=== PATIENT | male | born 1950 | race Caucasian/White ===

== ENCOUNTER → 2016-09-15 | Outpatient (CLI) | payer BC ==
[~2016-09-15] MED LIST: ALLO300T2 PO; ASPI81TA28 PO; CPR500 PO; DICL1GEL28 TOP; MTR500 PO; OMEG10007 PO; PRLSR20 PO; PRN10125 PO; SILD100T PO; SIMV40TA2 PO; SYN75 PO; TRAM-10 PO
--- NOTE | 2016-09-15 15:18 | DIAGNOSTIC IMAGING REPORT ---
LEFT KNEE 4 OR MORE CLINICAL HISTORY: LEFT KNEE PAIN pain COMPARISON: 01/24/2016 DISCUSSION: Moderate degenerative change medial and patellofemoral joint compartments. Partial lateral subluxation of the patella in relation to the patellar groove. Moderate reactive osteophytic change throughout. No evidence for acute bony pathology. Study is unchanged in the prior exam. There is no evidence for soft tissue swelling. IMPRESSION: Degenerative change of all major joint compartments all this is felt to be most prominent at the patellofemoral joint area. No change from the prior study. Electronically signed by: Ivan Fields M.D. 09/15/2016 3:17 PM Dictated Date/Time: 09/15/2016 3:15 PM
== END | disposition home or self-care (01) ==
LOC: C.RDSM 16:38
PROVIDERS: ATTEND Physician Assistant
DX: M25.562 Pain in left knee (principal)

== ENCOUNTER → 2016-10-09 | Outpatient (CLI) | payer BC ==
--- NOTE | 2016-10-09 12:23 | DIAGNOSTIC IMAGING REPORT ---
RENAL ULTRASOUND HISTORY: N18.3 CKD (chronic kidney disease), stage III COMPARISON: Abdomen and pelvis CT 08/17/2013. FINDINGS: Right kidney: 11.2 cm. No hydronephrosis. Normal corticomedullary differentiation. Mild/moderate cortical scarring/lobulation. Left kidney: 9.8 cm. No hydronephrosis. Normal corticomedullary differentiation. Mild/moderate cortical scarring/lobulation. Bladder: No bladder wall thickening. The bilateral ureteral jets were identified. The prostate gland is enlarged. Hepatic steatosis. IMPRESSION: 1. Mild/moderate bilateral cortical renal scarring/lobulation. 2. No hydronephrosis. 3. Enlarged prostate. 4. Hepatic steatosis. Electronically signed by: Beck Love M.D. 10/09/2016 12:21 PM Dictated Date/Time: 10/09/2016 12:19 PM
== END | disposition home or self-care (01) ==
LOC: C.ULTR 11:10
PROVIDERS: ATTEND Internal Medicine Nephrology
DX: I12.9 Hypertensive chronic kidney disease with stage 1 through stage 4 chronic kidney disease, or unspecified chronic kidney disease (principal); N18.3 Chronic kidney disease, stage 3 (moderate); M19.90 Unspecified osteoarthritis, unspecified site; N28.1 Cyst of kidney, acquired

== ENCOUNTER → 2017-08-20 | Outpatient (CLI) | payer BC, OTHER ==
--- NOTE | 2017-08-20 10:03 | DIAGNOSTIC IMAGING REPORT ---
AP STANDING VIEW OF BOTH KNEES; 3 VIEWS RIGHT KNEE CLINICAL HISTORY: Chronic right knee pain. FINDINGS: An AP standing view of both knees with crosstable lateral, tunnel, and sunrise views of the right knee are correlated with study dated 09/15/2016. The skeletal structures are osteopenic. No fracture is seen. There is advanced degenerative narrowing at the patellofemoral articulation with bony sclerosis and overgrowth. Moderate narrowing is seen in the medial compartment. The lateral compartment appears maintained. There are small marginal osteophytes as well as large patellar enthesophytes. A calcified fabella is incidentally noted. A calcified joint body is suspected projecting over the medial compartment on the AP view. No osteochondral defect is suggested on the tunnel image. There is a moderate to large joint effusion. The overlying soft tissues are normal in appearance. Survey images of the left knee on the frontal view show moderate to advanced narrowing in the medial compartment as well as marginal osteophytes. IMPRESSION: 1. Joint effusion with no acute osseous abnormality identified in the right knee. 2. Osteopenia and degenerative change as above, greatest at the patellofemoral articulation. 3. Question a calcified joint body projecting over the medial compartment. Electronically signed by: Chuy Parham M.D. 08/20/2017 10:01 AM Dictated Date/Time: 08/20/2017 9:55 AM
== END | disposition home or self-care (01) ==
LOC: C.RDSM 14:31
PROVIDERS: ATTEND Physical Medicine & Rehabilitation Sports Medicine
DX: M25.461 Effusion, right knee (principal); R52 Pain, unspecified; M85.861 Other specified disorders of bone density and structure, right lower leg

== ENCOUNTER 2019-11-06 12:31 | Inpatient (IN) ==
--- NOTE | 2019-11-06 12:45 | CT Scan Report ---
CT head/brain wo con CT DOSE: 729.78 mGycm HISTORY: Mental status change Stroke evaluation TECHNIQUE: Multiaxial CT images of the head were performed without the use of intravenous contrast. A dose lowering technique was utilized adhering to the principles of ALARA. Comparison: None. Findings: The paranasal sinuses and mastoid air cells are clear. The calvarium and skull base are int act. The ventricles and sulci are within normal limits. There is no mass, hematoma, midline shift, or acute infarct. 5 mm subacute to possibly old infarct adjacent to the posterior horn right lateral ve ntricle. No evidence for acute intracranial hemorrhage. Impression: 1. No acute intracranial hemorrhage. 2. 5 millimeters subacute to old infarct right paraventricular region. 3. Study is otherwise unremarkable ACT 112: Negative or not required by law. The above report was generated using voice recognition software. It may contain grammatical, syntax or spelling errors. Electronically signed by: Ivan Fields M.D. 11/06/2019 12:44 PM
[2019-11-06 13:09] LABS: Basophils # (auto) 0.01 K/uL (0-0.2); Basophils % (auto) 0.2 %; Eosinophils # (auto) 0.13 K/uL (0-0.5); Hematocrit (blood only) 37.2 % (42-52); Hemoglobin 12.6 g/dL (14.0-18.0); Lymphocytes # (auto) 1.34 K/uL (1.2-3.4); Lymphocytes % (auto) 20.1 %; Mean Corpuscular Hemoglobin 31.6 pg (25-34); Mean Corpuscular Hgb Conc 33.9 g/dL (32-36); Mean Corpuscular Volume 93.2 fL (80-100); Mean Platelet Volume 9.4 fL (7.4-10.4); Monocytes # (auto) 0.41 K/uL (0.11-0.59); Monocytes % (auto) 6.2 %; Neutrophils # (auto) 4.77 K/uL (1.4-6.5); Neutrophils % (auto) 71.5 %; Platelet Count 202 K/uL (130-400); RDW Coefficient of Variation 15.9 % (11.5-14.5); RDW Standard Deviation 54.2 fL (36.4-46.3); Red Blood Count 3.99 M/uL (4.7-6.1); White Blood Count 6.66 K/uL (4.8-10.8)
[2019-11-06] MEDS ORDERED: TPA for Stroke IV STA (13:16)
[2019-11-06] MEDS ORDERED: LABETALOL HCL IV 5 MG/ML 20ML IV ONE (13:21)
[2019-11-06 13:22] LABS: INR 0.9 (0.9-1.1); Partial Thromboplastin Ratio 0.9; Partial Thromboplastin Time 26.4 Seconds (21.0-31.0); Prothrombin Time 9.9 Seconds (9.0-12.0)
[2019-11-06 13:26] LABS: Alanine Aminotransferase 20 U/L (12-78); Albumin Level 3.3 gm/dl (3.4-5.0); Aspartate Aminotransferase 15 U/L (15-37); BUN Creatinine Ratio 17.9 (10-20); Blood Urea Nitrogen 35 mg/dl (7-18); Calcium 9.2 mg/dl (8.5-10.1); Carbon Dioxide 24 mmol/L (21-32); Chloride 106 mmol/L (98-107); Creatinine Clr Calc Pharmacy 34.9 ml/min; Est GFR (African American) 39.6; Est GFR (Non-African American) 34.1; Glucose 139 mg/dl (70-99); Magnesium 2.2 mg/dl (1.8-2.4); Potassium 4.4 mmol/L (3.5-5.1); Sodium 137 mmol/L (136-145)
[2019-11-06] MEDS ORDERED: Alteplase Bolus 7.2 MG in SYRINGE 0 ML IV ONE (13:26)
[2019-11-06] MEDS ORDERED: RECOMBINANT IV ONE (13:27)
[2019-11-06] MEDS ORDERED: MAGNESIUM SULFATE / D5W 1 GM/100 ML BAG IV STA (13:27)
[2019-11-06] MEDS ORDERED: PRIMARY PLUMSET, PE LINED TUBING, 113 IN, NON-DEHP (2260-0500) IV ONE (13:27)
[2019-11-06] MEDS ORDERED: ALTEPLASE IV ONE (13:27)
[2019-11-06 13:30] LABS: Alkaline Phosphatase 96 U/L (45-117); Bilirubin,Total 0.7 mg/dl (0.2-1); Globulin 3.3 gm/dl (2.5-4.0); Total Protein 6.6 gm/dl (6.4-8.2); Troponin I < 0.015 ng/ml (0-0.045)
--- NOTE | 2019-11-06 13:38 | Emergency Department Note ---
Impression & Plan CVA (cerebral vascular accident), Abnormal coordination ED Provider Note Provider: Bertin Chan MD DATE OF SERVICE: 11/06/2019 CHIEF COMPLAINT: Strokelike symptoms HISTORY OF PRESENT ILLNESS: Patient is a 69-year-old gentleman with a history of CKD, diverticulitis, hypertension presenting today via ambulance with onset of 1030 of difficulty utilizing his left arm and hand. Reported onset of some dizziness some difficulty with walking due to this. No LOC or falls reported. Patient states to days ago had a little bit of difficulty with his writing in his left hand but this improved compared to previous. Patient's states he thinks he knows little bit of left facial droop and also reports the patient has unintentionally been losing weight over the past year as well as talking more quietly and his writing has changed. Patient himself denies any headache. Taken immediately as a stroke alert to scanner. Patient not normally on aspirin at this time. Patient states he is normally left-handed. Patient denies any acute visual changes or nausea. Patient states he does have some history of vertigo although never had issues with his hand like this before even compared to several days ago. REVIEW OF SYSTEMS: A total of 10 review of systems was obtained and negative except as stated above in the HPI. PAST MEDICAL HISTORY: As noted above MEDICATIONS: Reviewed home medication list. SOCIAL HISTORY: and lives at home with PHYSICAL EXAM: GENERAL: alert and oriented in no acute distress on stretcher, does appear slightly anxious Head: normocephalic and atraumatic EYES: No injection, discharge or icterus. PERRL NECK: Trachea midline. Supple. ENT: Mucous membranes pink and moist. LUNGS: Airway patent. No retractions. Breath sounds clear with good air entry bilaterally. HEART: Regular rate and rhythm. No chest wall tenderness ABDOMEN: Soft and non-tender, without guarding or rebound. SKIN: Acyanotic, warm, dry, without rashes EXTREMITIES: Without swelling, tenderness or deformity with a 2+ right radial pulse. Slight tremor of the left upper extremity. NEUROLOGICAL: Some very subtle slight left facial droop. Symmetric smile. No slurred speech. No aphasia. No significant pronator drift. Patient does have difficulty with writing with his left hand on exam. [employer] strength appears intact bilaterally. Denies facial paresthesias. EK bpm normal sinus rhythm with a right bundle branch block. No ST segment elevation or depressions appreciated. Normal axis and QTC. CONTINUOUS CARDIAC MONITORING: was ordered and showed a heart rate of 76 bpm in normal sinus rhythm Patient's hypertension was referred to the hospitalist HOSPITAL COURSE: 1235 Patient was first seen and H&P performed in route to the CT scanner. 1305 reassessed and tele-stroke was assessing the patient at this time. Some difficulty with writing of his left hand is notable. 1320 at bedside his tele-stroke was over some benefits with the patient. TPA will be administered. This was ordered. Pharmacist is mixing. Signed consent by the patient's was completed as he requested his sign. 1336 TPA infusion the patient is stable. Hospitalist contacted. CTAs ordered. Patient's laboratory studies and imaging reviewed. Differential includes Infection, dehydration, metabolic abnormality, hypo/hyperglycemia, electrolyte disturbance, anemia, hypoxia, cardiac sources, intracerebral event, toxicologic, neurologic, as well as other pathologies. IMPRESSION/MEDICAL DECISION MAKING: Patient presents with some subtle left facial droop and some difficulty using his left hand. Patient is left-handed. Made a stroke alert. No evidence of intracranial bleed although evidence of a possible old/subacute infarct is noted. Seen by the tele-stroke service, Dr. Durand. Patient blood pressure is mildly to moderately hypertensive here. Does have some slight tremor left arm. Minimal symptoms however. Initial CTA was delayed due to the patient's history of chronic kidney disease. In conjunction with the tele-stroke service options were discussed with the patient regarding TPA usage. Tele-stroke did review the CT. He was inside the 3-hour window as last known well was 10:30 AM this morning. After discussion given that this could be somewhat debilitating given that he is left-handed proceed with TPA administration after going over the risks and benefits including significant bleeding or . May need was given per instructions from the tele-stroke service as well as the normal post TPA protocol. Tele-stroke service recommended knowing the patient's chronic renal dysfunction proceeding with CT angiograms to evaluate vasculature. They and myself discussed with the patient precautions regarding contrast administration with his renal function. Patient had some possible slight improvement while in the emergency department. Patient will be admitted to the ICU. The hospitalist was contacted and the hospitalist is also aware of the findings on the CT angiograms of significant right ICA occlusion and stenosis. Tele-stroke had previously theorized this was likely the case and recommend unless the patient had worsening of symptoms that they did not believe transfer for thrombectomy or acute intervention at this time was indicated. They ([facility]) recommended routine consideration/consultation for any carotid rasheed nosis noted again unless there was significant change in the patient's neurological exam and symptoms. DIAGNOSIS: Acute CVA status post TPA, left hand weakness DISPOSITION: Hospitalist will evaluate. Patient in agreement with admission. Critical Care I have personally spent minutes of critical care time in the direct management of this patient. This includes bedside care, interpretation of diagnostic studies, and testing, discussion with consultants, patient, and family members, and other required patient management activities. These minutes is in excess of all separately billable procedures. Past Med/Surg History Social History Preferred Language: Congolese Communication Ability: Effective Beliefs That Will Affect Care: None Current Living Situation: Spouse Other Information That Helps Us Care for You: No Feels Safe at Home: Yes Safety Concerns: Feels Safe At This Time Smoking Status: Former smoker Do You Dip or Chew Tobacco: No ; Second Hand Exposure: No ; Hx Alcohol Use: Yes Alcohol type: beer and wine Hx Substance Use: No Allergies Allergies Allergy/AdvReac Type Severity Reaction Status Date / Time mold Allergy Unknown RUNNY Verified 03/05/19 08:50 NOSE, ITCHY EYES, COUGH pollen extracts Allergy Unknown RUNNY Verified 03/05/19 08:50 NOSE, ITCHY EYES, COUGH No Known Drug Allergies AdvReac Unknown Unverified 11/06/19 12:44 Home Meds Home Medications Medication Instructions Recorded Confirmed allopurinol 300 mg tablet 300 mg PO DAILY #90 tab 01/20/19 11/06/19 cholecalciferol (vitamin D3) 25 1,000 units PO DAILY tab 01/20/19 11/06/19 mcg (1,000 unit) tablet levothyroxine 75 mcg tablet 75 mcg PO QAM #30 tab 01/20/19 11/06/19 omeprazole 20 mg capsule,delayed 20 mg PO DAILY PRN #30 cap 01/20/19 11/06/19 release simvastatin 40 mg tablet 40 mg PO HS #90 tab 01/20/19 11/06/19 lisinopril 10 1 tab PO DAILY 11/06/19 07/09/20 mg-hydrochlorothiazide 12.5 mg tablet ascorbic acid (vitamin C) [Vitamin 500 mg PO DAILY 11/06/19 11/06/19 C] diclofenac sodium 1 applic TOPICAL DAILY PRN 11/06/19 11/06/19 diphenhydramine HCl [Benadryl 25 mg PO DAILY 11/06/19 11/06/19 Allergy] pseudoephedrine HCl 30 mg PO QAM 11/06/19 11/06/19 triamcinolone acetonide 1 applic TOPICAL DAILY PRN 11/06/19 11/06/19 Results & Data (ED) Vital Signs Vital Signs - 24 hr 11/06/19 12:35 11/06/19 13:22 11/06/19 13:36 Temperature 37.0 C Temperature Source Oral Pulse Rate 67 Pulse Rate [Apical] 69 68 Pulse Rhythm Regular Pulse Rhythm [Apical] Regular Regular Pulse Strength Normal Pulse Strength [Apical] Normal Normal Respiratory Rate 16 20 18 Respiratory Effort / Characteristics Non-Labored Spontaneous Non-Labored Spontaneous Non-Labored Spontaneous Respiratory Depth Normal Normal Normal Respiratory Pattern Regular Regular Regular Blood Pressure 125/57 L Blood Pressure [Left Arm] 129/63 148/88 H Blood Pressure Mean 79 Blood Pressure Mean [Left Arm] 85 108 Blood Pressure Position Sitting Blood Pressure Position [Left Arm] Sitting Sitting Pulse Oximetry 98 100 100 Oxygen Delivery Method Room Air Room Air Room Air Sepsis Recent Fever Within 48 Hours No Sepsis New/Unexplained Change in Mental Status No Sepsis Action Taken by Nursing No Action Required 11/06/19 13:38 11/06/19 13:55 11/06/19 14:08 Temperature Temperature Source Pulse Rate Pulse Rate [Apical] 64 69 69 Pulse Rhythm Pulse Rhythm [Apical] Regular Regular Regular Pulse Strength Pulse Strength [Apical] Normal Normal Normal Respiratory Rate 18 18 18 Respiratory Effort / Characteristics Non-Labored Spontaneous Non-Labored Spontaneous Non-Labored Spontaneous Respiratory Depth Normal Normal Normal Respiratory Pattern Regular Regular Regular Blood Pressure Blood Pressure [Left Arm] 163/91 H 158/84 H 149/87 H Blood Pressure Mean Blood Pressure Mean [Left Arm] 115 108 107 Blood Pressure Position Blood Pressure Position [Left Arm] Sitting Sitting Sitting Pulse Oximetry 99 99 98 Oxygen Delivery Method Room Air Room Air Room Air Sepsis Recent Fever Within 48 Hours Sepsis New/Unexplained Change in Mental Status Sepsis Action Taken by Nursing Laboratory Data Result diagrams: 11/06/19 12:54 11/06/19 12:54 Lab Results 11/06/19 11/06/19 11/06/19 Range/Units 12:54 12:54 12:54 WBC 6.66 (4.8-10.8) K/uL RBC 3.99 L (4.7-6.1) M/uL Hgb 12.6 L (14.0-18.0) g/dL Hct 37.2 L (42-52) % MCV 93.2 (80-100) fL MCH 31.6 (25-34) pg MCHC 33.9 (32-36) g/dL RDW Std Deviation 54.2 H (36.4-46.3) fL RDW Coeff of Ray 15.9 H (11.5-14.5) % Plt Count 202 (130-400) K/uL MPV 9.4 (7.4-10.4) fL Immature Gran % (Auto) 0.0 % Neut % (Auto) 71.5 % Lymph % (Auto) 20.1 % [place] % (Auto) 6.2 % Eos % (Auto) 2.0 % Baso % (Auto) 0.2 % Neut # (Auto) 4.77 (1.4-6.5) K/uL Lymph # (Auto) 1.34 (1.2-3.4) K/uL [place] # (Auto) 0.41 (0.11-0.59) K/uL Eos # (Auto) 0.13 (0-0.5) K/uL Baso # (Auto) 0.01 (0-0.2) K/uL Immature Gran # (Auto) 0.00 (0.00-0.02) K/uL PT 9.9 (9.0-12.0) Seconds INR 0.9 (0.9-1.1) APTT 26.4 (21.0-31.0) Seconds PTT Ratio 0.9 Sodium (136-145) mmol/L Potassium (3.5-5.1) mmol/L Chloride (98-107) mmol/L Carbon Dioxide (21-32) mmol/L Anion Gap (3-11) BUN (7-18) mg/dl Creatinine (0.6-1.4) mg/dl Est Cr Clr Drug Dosing ml/min Est GFR ( Amer) Est GFR (Non-Af Amer) BUN/Creatinine Ratio (10-20) Glucose (70-99) mg/dl Calcium (8.5-10.1) mg/dl Magnesium (1.8-2.4) mg/dl Total Bilirubin (0.2-1) mg/dl AST (15-37) U/L ALT (12-78) U/L Alkaline Phosphatase (45-117) U/L Troponin I (0-0.045) ng/ml Total Protein (6.4-8.2) gm/dl Albumin (3.4-5.0) gm/dl Globulin (2.5-4.0) gm/dl Albumin/Globulin Ratio (0.9-2) Blood Type O Positive Antibody Screen NEGATIVE 11/06/19 Range/Units 12:54 WBC (4.8-10.8) K/uL RBC (4.7-6.1) M/uL Hgb (14.0-18.0) g/dL Hct (42-52) % MCV (80-100) fL MCH (25-34) pg MCHC (32-36) g/dL RDW Std Deviation (36.4-46.3) fL RDW Coeff of Ray (11.5-14.5) % Plt Count (130-400) K/uL MPV (7.4-10.4) fL Immature Gran % (Auto) % Neut % (Auto) % Lymph % (Auto) % [place] % (Auto) % Eos % (Auto) % Baso % (Auto) % Neut # (Auto) (1.4-6.5) K/uL Lymph # (Auto) (1.2-3.4) K/uL [place] # (Auto) (0.11-0.59) K/uL Eos # (Auto) (0-0.5) K/uL Baso # (Auto) (0-0.2) K/uL Immature Gran # (Auto) (0.00-0.02) K/uL PT (9.0-12.0) Seconds INR (0.9-1.1) APTT (21.0-31.0) Seconds PTT Ratio Sodium 137 (136-145) mmol/L Potassium 4.4 (3.5-5.1) mmol/L Chloride 106 (98-107) mmol/L Carbon Dioxide 24 (21-32) mmol/L Anion Gap 7.0 (3-11) BUN 35 H (7-18) mg/dl Creatinine 1.96 H (0.6-1.4) mg/dl Est Cr Clr Drug Dosing 34.9 ml/min Est GFR ( Amer) 39.6 Est GFR (Non-Af Amer) 34.1 BUN/Creatinine Ratio 17.9 (10-20) Glucose 139 H (70-99) mg/dl Calcium 9.2 (8.5-10.1) mg/dl Magnesium 2.2 (1.8-2.4) mg/dl Total Bilirubin 0.7 (0.2-1) mg/dl AST 15 (15-37) U/L ALT 20 (12-78) U/L Alkaline Phosphatase 96 (45-117) U/L Troponin I < 0.015 (0-0.045) ng/ml Total Protein 6.6 (6.4-8.2) gm/dl Albumin 3.3 L (3.4-5.0) gm/dl Globulin 3.3 (2.5-4.0) gm/dl Albumin/Globulin Ratio 1.0 (0.9-2) Blood Type Antibody Screen Administered Medications Lactated Ringer's (Lr) 1,000 mls @ 125 mls/hr IV .Q8H ROQUE Stop: 12/06/19 17:29 Last Admin: 11/06/19 17:58 Dose: 125 mls/hr Documented by: [id number] Ioversol (Optiray 320 125ml) 119 ml IV ONCE PRN PRN Reason: Interaction Checking Stop: 11/10/19 15:34 Last Admin: 11/06/19 15:35 Dose: 119 ml Documented by: [id number] Discontinued Medications Alteplase, Recombinant (Activase For Stroke) 1 ea IV NOW STA; Protocol Stop: 11/06/19 13:17 Last Admin: 11/06/19 13:20 Dose: 1 ea Documented by: [id number] Alteplase, Recombinant 7.2 mg/ (Syringe) 7.2 mls @ 7.2 mls/min IV ONCE ONE Stop: 11/06/19 13:27 Last Admin: 11/06/19 13:19 Dose: 7.2 mls/min Documented by: [id number] Cosigned by: [id number] Alteplase, Recombinant 65 mg/ (EMPTY BAG) 65 mls @ 65 mls/hr IV ONCE ONE Stop: 11/06/19 13:28 Last Infusion: 11/06/19 14:20 Dose: 0 mls/hr Documented by: [id number] Cosigned by: [id number] Admin: 11/06/19 13:20 Dose: 65 mls/hr Documented by: [id number] Cosigned by: [id number] Magnesium Sulfate/Dextrose (Magnesium Sulfate / D5w) 1 gm in 100 mls @ 100 mls/hr IV NOW STA Stop: 11/06/19 14:26 Last Infusion: 11/06/19 14:51 Dose: 0 mls/hr Documented by: [id number] Admin: 11/06/19 13:51 Dose: 100 mls/hr Documented by: [id number] Labetalol HCl (Normodyne) Confirm Administered Dose 10 mg IV .STK-MED ONE Stop: 11/06/19 13:22 Last Admin: 11/06/19 15:55 Dose: Not Given Documented by: [id number] Discharge Plan Visit Data *Final* Discharge Date/Time: 11/06/19 15:11 Chief Complaint: Stroke Alert Stated Complaint: stroke alert ED Provider: Bertin Chan Discharge Problem: CVA (cerebral vascular accident), Abnormal coordination Patient Disposition: Admitted As Inpatient Discharge Instructions Interventions: ED Discharge Assessment Last Done: 11/06/19 15:11 Discharge Problem: CVA (cerebral vascular accident) Qualifiers: CVA mechanism: unspecified Qualified Code(s): I63.9 - Cerebral infarction, unspecified
--- NOTE | 2019-11-06 14:21 | History & Physical Report ---
Date of Service November 06, 2019 Assessment & Plan (1) CVA (cerebral vascular accident): Mild ongoing left hand dexterity deficits and mild left sided facial droop s/p alteplase, significantly improved from initial stroke symptoms Admit to ICU - discussed with Dr Raya Protocol vital sign checks s/p tPA infusion Bedrest Stroke s/p tPA order set used Aim BP < 180/105 for first 24 hours, holding home BP meds, will defer to ICU team for management of this, current BP adequate No antiplatelets/anticoagulation for 24 hours CTA pending, need to monitor Cr function given contrast given TTE HbA1C and lipid panel in AM Will prescribe high intensity statin although LDL @ goal on simvastatin in August therefore will defer to neurology whether he goes back on this CT head, MRI brain w/o contrast - 24 hours after alteplase given Consult neurology Thony (2) Chronic kidney disease, stage III (moderate): Cr 1.96 @ baseline Monitor with serial BMP especially post contrast IV fluids while NPO (3) Hypertension: BP management as per ICU post tPA, will place his usual anti-hypertensives on hold given normal BP as present (4) Hypercholesterolemia: LDL @ goal as above on simvastatin, will start high intensity atorvastatin but (5) Hypothyroidism: Continue levothyroxine 75 mcg PO daily (6) Chronic gout: Continue allopurinol (7) DVT prophylaxis: No anticoagulation s/p tPA for 24 hours [facility] [place] Admission and Anticipated Discharge Date Admission Date: 11/06/2019 History of Present Illness Chief Complaint: Stroke-like symptoms Primary Care Provider: Wilfredo Carlisle MD Kemar Mora is a 69 year old [id number] male who presents to the ER via EMS with stroke-like symptoms that started at 10:30am this morning. History taken independently from patient and his at bedside. He noticed sudden onset vertigo, neck pain and left arm weakness. The arm weakness progressed gradually until his whole left upper extremity could not be moved. Vertigo lasted for approximately 5 minutes. During this time he felt very dizzy but did not hit his head or forever. He describes the vertigo as if he had spun around a lot and then try to walk. No headache. But did think he had a sinus problem as the event occurred with facial pain. With hindsight his has noticed the patient over the last year has been talking more quietly, writing is changed and he has had 30 pounds of unintentional weight loss. Telestroke was called prior to arrival in the ER. CT head showed subacute to old infarcts right periventricular region, no acute intracranial hemorrhage. He was given alteplase on the advice of tele-stroke and is awaiting CTA head/neck. Allergies Allergy/AdvReac Type Severity Reaction Status Date / Time mold Allergy Unknown RUNNY Verified 03/05/19 08:50 NOSE, ITCHY EYES, COUGH pollen extracts Allergy Unknown RUNNY Verified 03/05/19 08:50 NOSE, ITCHY EYES, COUGH No Known Drug Allergies AdvReac Unknown Unverified 11/06/19 12:44 Home Medications Home Medications Medication Instructions Recorded Confirmed Type allopurinol 300 mg tablet 300 mg PO DAILY #90 tab 01/20/19 11/06/19 History cholecalciferol (vitamin D3) 25 1,000 units PO DAILY tab 01/20/19 11/06/19 History mcg (1,000 unit) tablet levothyroxine 75 mcg tablet 75 mcg PO QAM #30 tab 01/20/19 11/06/19 History omeprazole 20 mg capsule,delayed 20 mg PO DAILY PRN #30 cap 01/20/19 11/06/19 History release simvastatin 40 mg tablet 40 mg PO HS #90 tab 01/20/19 11/06/19 History lisinopril 10 1 tab PO DAILY 03/05/19 11/06/19 History mg-hydrochlorothiazide 12.5 mg tablet ascorbic acid (vitamin C) [Vitamin 500 mg PO DAILY 11/06/19 11/06/19 History C] diclofenac sodium 1 applic TOPICAL DAILY PRN 11/06/19 11/06/19 History diphenhydramine HCl [Benadryl 25 mg PO DAILY 11/06/19 11/06/19 History Allergy] pseudoephedrine HCl 30 mg PO QAM 11/06/19 11/06/19 History triamcinolone acetonide 1 applic TOPICAL DAILY PRN 11/06/19 11/06/19 History Past Med/Surg History Medical History Chronic kidney disease, stage III (moderate) (Chronic) Hypertension (Chronic) Vitamin D deficiency (Chronic) Social History Preferred Language: Polish Communication Ability: Effective Beliefs That Will Affect Care: None Current Living Situation: Spouse Other Information That Helps Us Care for You: No Feels Safe at Home: Yes Safety Concerns: Feels Safe At This Time Smoking Status: Former smoker Do You Dip or Chew Tobacco: No ; Second Hand Exposure: No ; Hx Alcohol Use: Yes Alcohol type: beer and wine Hx Substance Use: No Review of Systems Review of Systems: All systems reviewed & are unremarkable except as noted in HPI & below Constitutional: + weight loss (Unintentional 30 pounds over the last year) Physical Exam Constitutional: WD/WN, vitals as above no acute distress Eyes: + anicteric sclerae, EOM intact bilaterally (without diplopia) and + abnormal pupil size; + no PERRL (Sluggish right pupil constriction with contralateral light) ENMT: external ear and nose normal, oropharynx normal Neck: trachea midline Respiratory: normal respiratory effort, lungs clear to auscultation Cardiovascular: RRR, no murmur, no edema Gastrointestinal (Abdomen): normal bowel sounds, soft, nontender, no hepatosplenomegaly Musculoskeletal: Head/Neck/Chest: normocephalic and head atraumatic Skin: no rashes, warm and dry Neurologic: moves all extremities, + focal motor deficit (very mild co- ordination deficit left hand with fine dexterity) and awake; not confused Speech / Cognition: normal speech, no expressive aphasia and no receptive aphasia Motor/Sensory: + tremor (occasional action tremor on left upper extremity and left face on smiling [fasciculations]); no pronator drift and no sensory deficit Cranial Nerves: sense of smell intact, normal accommodation, EOM intact bilaterally (Without diplopia), tongue midline, able to rotate head bilaterally, able to elevate shoulders bilaterally, no nystagmus (No pathological nystagmus) and symmetric palate elevation; + no PERRL (Sluggish right pupil as above with contralateral eye exposed to light), + abnormal facial strength (Very mild left lower facial droop more noticeable at rest than on smiling) and + hearing impairment (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) Vital Signs (Past 12 Hours) Vital Signs Temp Pulse Pulse Resp BP BP Pulse Ox 11/06/19 14:08 69 18 149/87 H 98 11/06/19 13:55 69 18 158/84 H 99 11/06/19 13:38 64 18 163/91 H 99 11/06/19 13:36 68 18 148/88 H 100 11/06/19 13:22 69 20 129/63 100 11/06/19 12:35 37.0 C 67 16 125/57 L [address] head/brain wo con Impression: 1. No acute intracranial hemorrhage. 2. 5 millimeters subacute to old infarct right paraventricular region. 3. Study is otherwise unremarkable ECG Indication: other (CVA) Rate (beats per minute): 68 Findings: + RBBB Comparison ECG Date: from (October 22, 2017) Change: no significant change Code Status & VTE Plan Code Status Full as discussed with the patient and his VTE Prophylaxis Plan VTE Prophylaxis will be ordered: Yes Critical Care Time Prolonged Care Time Prolonged Care Time: Yes Total Prolonged Care Time: 70 Multiple reassessments, counselling with both patient and his . Co- ordination of care with ER, neurology (Dr Garcia), [facility] tele-stroke and ICU (Dr Raya and Te) PG Care Time/CCT Total # of Minutes Spent Total Time Spent with Patient: Total time spent is greater than 50% in coordination of care (as documented) at patient's floor/unit and/or counseling patient: Prolonged Care Time Prolonged Care Time: Yes Total Prolonged Care Time: 70 Coding Level of Care Code 94577 Initial Inpt Care Lvl 3 Diagnoses CVA (cerebral vascular accident) I63.511 CVA mechanism: occlusion Precerebral and cerebral artery: middle cerebral artery Laterality of affected vessel: right Chronic kidney disease, stage III (moderate) N18.3 Hypertension I10 Hypertension type: essential hypertension Hypercholesterolemia E78.00 Hypothyroidism E03.9 Hypothyroidism type: unspecified Chronic gout M1A.[id number] Gout site: unspecified site Gout etiology: unspecified cause Presence of tophus: without tophus DVT prophylaxis Z29.9 Additional Codes Prolonged Care Time - Prolonged Care Time: Yes ([id number]) (1) CVA (cerebral vascular accident) CVA mechanism: occlusion Precerebral and cerebral artery: middle cerebral artery Laterality of affected vessel: right Qualified Code(s): I63.511 - Cerebral infarction due to unspecified occlusion or stenosis of right middle cerebral artery (2) Hypertension Hypertension type: essential hypertension Qualified Code(s): I10 - Essential (primary) hypertension (3) Hypothyroidism Hypothyroidism type: unspecified Qualified Code(s): E03.9 - Hypothyroidism, unspecified (4) Chronic gout Gout site: unspecified site Gout etiology: unspecified cause Presence of tophus: without tophus Qualified Code(s): M1A.9XX0 - Chronic gout, unspecified, without tophus (tophi)
[2019-11-06 15:19] LABS: Appearance Urine Clear (Clear); Bilirubin Urine Negative (Negative); Blood Urine Negative (Negative); Color Urine Yellow; Glucose Urine UA Negative (Negative); Ketones Urine Negative (Negative); Leukocyte Esterase Urine Negative (Negative); Nitrite Urine Negative (Negative); Protein Urine Negative (Negative); Specific Gravity Urine 1.011 (1.000-1.030); Urobilinogen Urine Negative (Negative); pH Urine 6.5 (4.5-7.5)
[2019-11-06] MEDS ORDERED: OPTIRAY 320 125ml IV PRN (15:35)
[2019-11-06 15:39] LABS: Amphetamines+Metham, Urine Neg (Neg); Barbiturates, Urine Neg (Neg); Benzodiazepine, Urine Neg (Neg); Cocaine, Urine Neg (Neg); MDMA (Ecstacy), Urine Neg (Neg); Methadone, Urine Neg (Neg); Opiate, Urine Neg (Neg); Phencyclidine, Urine Neg (Neg)
--- NOTE | 2019-11-06 15:54 | CT Scan Report ---
CT angio neck with con CLINICAL HISTORY: LUE weak POSSIBLE STROKE COMPARISON STUDY: No previous studies for comparison. TECHNIQUE: CT angiography was performed from the aortic arch to the skull base. MIP imaging was perfo rmed. The patient was scanned in a dynamic helical fashion during intravenous administration of 119 c c of Optiray 320. A dose lowering technique was utilized adhering to the principles of ALARA. CT DOSE: Technique: CT angiogram of the carotid and vertebral arteries was obtained using intravenous contrast and 3-D reconstruction. NASCET criteria was utilized. Findings: There is a critical 99%/subtotal occlusion of the right internal carotid artery origin. The left carotid revealed no evidence of hemodynamic significant stenosis. There is no evidence of an eurysm. There is no evidence of dissection. There is a 50% diameter stenosis of the right vertebral artery at the C5-6 level secondary to uncover tebral joint degenerative disease. There is an 80% diameter narrowing of the left vertebral at the C5 -6 level secondary to uncovertebral joint degenerative disease. IMPRESSION: 1. Critical 99%/subtotal occlusion of the right internal carotid artery origin 2. No evidence of hemodynamically significant left internal carotid artery stenosis 3. 80% stenosis of the left vertebral artery at the C5-C6 level secondary to uncovertebral joint dege nerative disease ACT 112: Negative or not required by law. Electronically signed by: Baljit Casey M.D. 11/06/2019 3:52 PM
--- NOTE | 2019-11-06 15:54 | CT Scan Report ---
CT angio head w con HISTORY: Mental status change L UE weak TECHNIQUE: Multiaxial CT angiography of the head was performed IV contrast: 120 cc nonionic Maximu m intensity projection images were also obtained. A dose lowering technique was utilized adhering to the principles of ALARA. COMPARISON: None. FINDINGS: There is no mass, hematoma, midline shift, or acute infarct. Visualized intracranial vascul ature demonstrates a high-grade intercritical stenosis of the cavernous component of the right international relations professor al carotid artery with a superimposed critical stenosis in or near occlusion of the right middle cere bral artery. The left middle cerebral system as well as the anterior cerebrals appear unremarkable only for mild s cattered atherosclerotic change. Similar findings are seen involving the posterior cerebral system with evidence for mild scattered at herosclerotic plaque formation. The major venous sinuses appear to be intact. IMPRESSION: 1. Near occlusion and/or critical stenosis proximal aspect right middle cerebral artery. 2. There is considerable to severe narrowing of the cavernous aspect of the right internal carotid ar mary. 3. Scattered atherosclerotic narrowing considered mild to moderate throughout remainder of the anteri or, left middle, and posterior cerebral systems. 4. This report was phoned to Dr. Chan in the emergency room ACT 112: Negative or not required by law. The above report was generated using voice recognition software. It may contain grammatical, syntax or spelling errors. Electronically signed by: Ivan Fields M.D. 11/06/2019 3:52 PM
[2019-11-06] MEDS ORDERED: ICU PROTOCOL FOR HYPERGLYCEMIA PRN (16:43)
[2019-11-06] MEDS ORDERED: PHARMACIST DISCHARGE MED REC CONSULT PRN (16:43)
[2019-11-06] MEDS ORDERED: PANTOprazole 40 MG TAB PO PRN (16:49)
[2019-11-06] MEDS: LACTATED RINGER'S 1,000 ML IV SCH (17:58)
--- NOTE | 2019-11-06 19:04 | Critical Care Consultation ---
Date of Consultation November 06, 2019 Assessment & Plan (1) CVA (cerebral vascular accident): Reason Critically Ill: 69-year-old male presents to the ICU following acute CVA status post TPA administration. Neuro - CVA/NICHELLE/vertebral artery stenosispatient presents with symptoms of left facial droop, left upper extremity weakness; TPA administered at 1323 -CT head negative for acute changes, 5 mm subacute old infarct right periventricular region -CTA head: Occlusion and or critical stenosis proximal aspect of right MCA, scattered arthrosclerotic narrowing throughout anterior, left middle, and posterior cerebral system, severe narrowing of cavernous aspect of right ICA -CTA neck: Critical 99% subtotal occlusion of the right ICA, no evidence of hemodynamically significant left ICA stenosis, 80% stenosis of left vertebral artery at C5-C6 level secondary to uncovertebreal joint degenerative disease -Given severity of cerebral and carotid artery disease, hospitalist discussed with neurology in regard to transfer to tertiary center. Per their conversation, patient has improved following TPA administration, and will monitor per 24-hour TPA protocol in ICU. If patient were to decompensate, would transfer to tertiary center for eval for thrombectomy. -Endovascular consult -Neurology consulted will follow recommendations, follow-up recommend for ASA/Plavix -First day TPA administration protocol -Holding BP medications, will allow permissive hypertension within goal range parameters -Follow-up MRI read -Follow-up echo in a.m. -Frequent neuro exams -Followup hemoglobin A1c and lipid profile -Patient likely to downgrade at 24 hours pending 24-hour imaging Cardiac - HTNholding home meds for permissive hypertension, will treat if indicated with PRN's Respiratory - No history of respiratory disease, currently maintaining sats on room air Monitor on continuous pulse ox GI - N.p.o. pending swallow RENAL/LYTES - CKD stage IIIcreatinine consistent with prior baseline, follows with Dr. Silva outpatient -We will continue to monitor with routine BMPs -Continue maintenance fluid resuscitation -Monitor electrolytes and replete as indicated -Avoid nephrotoxins - Strict I's and O's ENDO - No history diabetes -ICU hyperglycemic protocol -Follow-up hemoglobin A1c Hypothyroidismcontinue home Synthroid dose HEME - H&H stable, monitor routine CBCs ID - No indication for infectious process at this time LINES/IV ACCESS - Peripheral IVs DVT PROPHYLAXIS - SCDs, hold anticoagulation for first 24 hours following TPA administration I have personally spent 35 minutes of critical care time in the direct management of this patient. This is a life/limb threatening event. This includes time spent evaluating patient, direct bedside care, chart review, placing orders, interpretation of diagnostic studies, discussion with consultants, patient, and family members, as well as other required patient management activities. This time is exclusive of all separately billable procedures, and teaching time and separate from and in addition to any other critical care service time. Thank you for allowing us to participate in the care of this patient. Please refer to my attending physician's documentation for any further recommendations. (2) Hypercholesterolemia: (3) Hypertension: (4) Chronic kidney disease, stage III (moderate): (5) Vertebral artery stenosis: (6) Carotid artery stenosis: History of Present Illness Attending Physician: Elijah Lagunas MD History of Present Illness Mr. Mora is a 69-year-old male who presents to the emergency department with strokelike symptoms including left sided facial droop and left arm weakness with sudden onset of vertigo at around 1030 this morning. Patient's vertigo resolved in approximately 5 minutes, however his left arm weakness continued to progress at which he could not move his entire left upper extremity. Code stroke was initiated, and a CT the head was negative for acute abnormalities but did show subacute old infarct right periventricular region. He was given TPA at 1323. He was taken for a CTA of the head and neck, which reveals a critical 99% subtotal occlusion of the right ICA. Transfer to tertiary center for thrombectomy was discussed, however patient's symptoms significantly improved following TPA administration. Patient presents the ICU with very mild left facial droop, and left arm weakness has resolved with only minimal disturbances in coordination with [id number]-sy-[id number] test. Plan to monitor closely in ICU per 24-hour post TPA protocol. MRI pending. Neurology and endovascular consulted. Patient likely to be downgraded pending -24-hour CT imaging. Currently patient is alert and oriented and appears comfortable. He denies headache, dizziness, weakness or numbness, nausea or vomiting, abdominal pain, diarrhea, recent illness or fevers, chest pain, or shortness of breath. Allergies Allergy/AdvReac Type Severity Reaction Status Date / Time mold Allergy Unknown RUNNY Verified 03/05/19 08:50 NOSE, ITCHY EYES, COUGH pollen extracts Allergy Unknown RUNNY Verified 03/05/19 08:50 NOSE, ITCHY EYES, COUGH No Known Drug Allergies AdvReac Unknown Unverified 11/06/19 12:44 Home Medications Home Medications Medication Instructions Recorded Confirmed Type allopurinol 300 mg tablet 300 mg PO DAILY #90 tab 01/20/19 11/06/19 History cholecalciferol (vitamin D3) 25 1,000 units PO DAILY tab 01/20/19 11/06/19 History mcg (1,000 unit) tablet levothyroxine 75 mcg tablet 75 mcg PO QAM #30 tab 01/20/19 11/06/19 History omeprazole 20 mg capsule,delayed 20 mg PO DAILY PRN #30 cap 01/20/19 11/06/19 History release simvastatin 40 mg tablet 40 mg PO HS #90 tab 01/20/19 11/06/19 History lisinopril 10 1 tab PO DAILY 03/05/19 11/06/19 History mg-hydrochlorothiazide 12.5 mg tablet ascorbic acid (vitamin C) [Vitamin 500 mg PO DAILY 11/06/19 11/06/19 History C] diclofenac sodium 1 applic TOPICAL DAILY PRN 11/06/19 11/06/19 History diphenhydramine HCl [Benadryl 25 mg PO DAILY 11/06/19 11/06/19 History Allergy] pseudoephedrine HCl 30 mg PO QAM 11/06/19 11/06/19 History triamcinolone acetonide 1 applic TOPICAL DAILY PRN 11/06/19 11/06/19 History Patient History Medical History (Updated 11/07/19 @ 11:20 by Pasha Garcia MD) Chronic gout Chronic kidney disease, stage III (moderate) (Chronic) Hypertension (Chronic) Hypothyroidism Vitamin D deficiency (Chronic) Surgical History S/P tonsillectomy Status post right knee replacement Status post total hip replacement, bilateral Family History Mother , age 92 of congestive heart failure Heart disease Father , age 92 of complications from a perforated ulcer No problems noted. 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 Hx Substance Use: No Review of Systems Review of Systems: All systems reviewed & are unremarkable except as noted in HPI & below Physical Exam Constitutional: cooperative and comfortable Eyes: PERRL, conjunctivae normal, anicteric sclerae ENMT: external ear and nose normal, oropharynx normal Neck: trachea midline, no thyromegaly Respiratory: normal respiratory effort, lungs clear to auscultation Cardiovascular: RRR, no murmur, no edema Heart Sounds: normal S1 and normal S2 Vessels: no JVD Extremities: normal capillary refill; no edema Gastrointestinal (Abdomen): normal bowel sounds, soft, nontender, no hepatosplenomegaly Skin: no rashes, warm and dry Neurologic: PERRLA, EOMs intact, mild left-sided facial palsy, no dysarthria, left decpsy-[id number]-[id number] with mild disturbance, no pronator drift Psychiatric: A+Ox3, euthymic affect Results & Data Results & Data ([facility]) Vital Signs (Past 12 Hours) Vital Signs Temp Pulse Pulse Resp BP BP BP 11/06/19 18:53 37.1 C 66 20 128/89 11/06/19 18:23 72 20 131/80 11/06/19 17:53 36.6 C 74 20 145/68 H 11/06/19 17:23 36.6 C 82 20 150/92 H 11/06/19 16:53 36.6 C 70 20 131/77 11/06/19 16:43 11/06/19 16:23 70 18 148/83 H 11/06/19 15:53 68 16 147/83 H 11/06/19 15:23 64 18 159/82 H 11/06/19 15:08 67 16 148/88 H 11/06/19 14:54 71 18 141/80 H 11/06/19 14:38 66 16 152/80 H 11/06/19 14:23 72 18 150/79 H 11/06/19 14:08 69 18 149/87 H 11/06/19 13:55 69 18 158/84 H 11/06/19 13:38 64 18 163/91 H 11/06/19 13:36 68 18 148/88 H 11/06/19 13:22 69 20 129/63 11/06/19 12:35 37.0 C 67 16 125/57 L Pulse Ox Pulse Ox 11/06/19 18:53 98 11/06/19 18:23 95 11/06/19 17:53 97 11/06/19 17:23 99 11/06/19 16:53 96 11/06/19 16:43 96 11/06/19 16:23 94 11/06/19 15:53 97 11/06/19 15:23 99 11/06/19 15:08 98 11/06/19 14:54 98 11/06/19 14:38 98 11/06/19 14:23 98 11/06/19 14:08 98 11/06/19 13:55 99 11/06/19 13:38 99 11/06/19 13:36 100 11/06/19 13:22 100 11/06/19 12:35 98 Coding Level of Care Code Critical Care ea addt'l 30 min Diagnoses CVA (cerebral vascular accident) I63.9 CVA mechanism: unspecified Hypercholesterolemia E78.00 Hypertension I10 Chronic kidney disease, stage III (moderate) N18.3 Vertebral artery stenosis I65.09 Carotid artery stenosis I65.29 (1) CVA (cerebral vascular accident) CVA mechanism: unspecified Qualified Code(s): I63.9 - Cerebral infarction, unspecified
[2019-11-06] MEDS: ATORVASTATIN 40 MG TAB PO SCH (19:55)
[2019-11-06] MEDS ORDERED: SIMVASTATIN 40 MG TAB PO SCH (21:00)
[2019-11-07 04:37] LABS: Basophils # (auto) 0.03 K/uL (0-0.2); Basophils % (auto) 0.4 %; Eosinophils # (auto) 0.17 K/uL (0-0.5); Eosinophils % (auto) 2.1 %; Hematocrit (blood only) 38.7 % (42-52); Hemoglobin 13.4 g/dL (14.0-18.0); Immature Granulocytes # (auto) 0.01 K/uL (0.00-0.02); Immature Granulocytes % (auto) 0.1 %; Lymphocytes # (auto) 1.73 K/uL (1.2-3.4); Mean Corpuscular Hemoglobin 32.5 pg (25-34); Mean Corpuscular Hgb Conc 34.6 g/dL (32-36); Mean Corpuscular Volume 93.9 fL (80-100); Mean Platelet Volume 9.7 fL (7.4-10.4); Monocytes # (auto) 0.48 K/uL (0.11-0.59); Monocytes % (auto) 5.8 %; Neutrophils % (auto) 70.6 %; Platelet Count 205 K/uL (130-400); RDW Coefficient of Variation 15.6 % (11.5-14.5); RDW Standard Deviation 53.2 fL (36.4-46.3); Red Blood Count 4.12 M/uL (4.7-6.1); White Blood Count 8.22 K/uL (4.8-10.8)
[2019-11-07] MEDS: LACTATED RINGER'S 1,000 ML IV SCH (04:48)
[2019-11-07 04:53] LABS: BUN Creatinine Ratio 17.3 (10-20); Calcium 8.6 mg/dl (8.5-10.1); Est GFR (African American) 49.4; Est GFR (Non-African American) 42.6; Magnesium 2.1 mg/dl (1.8-2.4); Potassium 4.4 mmol/L (3.5-5.1)
[2019-11-07 04:56] LABS: Phosphorus 3.4 mg/dl (2.5-4.9)
--- NOTE | 2019-11-07 05:04 | Electrocardiogram Report ---
Test Reason : Blood Pressure : / mmHG Vent. Rate : 068 BPM Atrial Rate : 068 BPM P-R Int : 182 ms QRS Dur : 118 ms QT Int : 412 ms P-R-T Axes : 080 028 033 degrees QTc Int : 438 ms Poor data quality, interpretation may be adversely affected Normal sinus rhythm Right bundle branch block Abnormal ECG When compared with ECG of 22-OCT-2017 10:09, No significant change was found Confirmed by Tr Bustillos ([id number]) on 11/07/2019 5:04:24 AM Referred By: SELF Confirmed By:Tr Bustillos
[2019-11-07 06:04] LABS: Estimated Average Glucose 117 mg/dl; Hemoglobin A1C 5.7 % (4.5-5.6)
[2019-11-07] MEDS: LEVOTHYROXINE SODIUM 75 MCG TABLET PO SCH (06:26)
--- NOTE | 2019-11-07 07:07 | Magnetic Resonance Report ---
MR brain wo con HISTORY: 69 years-old Male CVA acute strokelike symptoms COMPARISON: Head CT, CTA head neck of same day TECHNIQUE: Multiplanar multisequence MRI of the brain was obtained without the use of IV contrast. FINDINGS: Focal area of ovoid restricted diffusion involves the right frontal lobe chambers radiata and right mervin tiform nucleus measuring 2.3 x 1.0 x 2.3 cm in AP, transverse and coronal, dimensions with increased T2/FLAIR signal and decreased T1 signal. No additional restricted diffusion identified. No acute intr acranial hemorrhage, midline shift, abnormal extra axial collection, hydrocephalus or definite intrac ranial mass. Study is mildly motion degraded. Mild age-related involutional changes. Mild patchy whit e matter T2/FLAIR hyperintensities suggest chronic microvascular ischemic disease. There are a few re mote lacunar infarctions noted involving the periventricular right cerebral hemisphere. No pathologic blooming artifact on the T2 star series. Loss of the normal flow-void involving the distal cervical segment, petrous and cavernous segments right internal carotid artery as described on recent CTA. [place] air cells are clear. Mild mucosal thickening of the paranasal sinuses. The skull, orbits and sof t tissues are unremarkable. IMPRESSION: 1. Acute infarct of the right frontal lobe chambers radiata and right lentiform nucleus measures up to 2.3 cm in greatest dimension. No acute intracranial hemorrhage or midline shift. 2. There is loss of the normal right internal carotid artery flow void seen within the distal cervica l segment, petrous and cavernous segments. When correlated with recent CTA this correlates with long segment high-grade stenosis. 3. Multiple remote lacunar infarction of the right MCA territory. ACT 112: Negative or not required by law. The above report was generated using voice recognition software. It may contain grammatical, syntax o r spelling errors. Electronically signed by: Antonio Trevizo M.D. 11/07/2019 7:06 AM
[2019-11-07] MEDS: allopurinoL 300 MG TAB PO SCH (08:43)
[2019-11-07] MEDS ORDERED: ATORVASTATIN 40 MG TAB PO SCH (09:00)
--- NOTE | 2019-11-07 09:55 | Critical Care Progress Note ---
Date of Service November 07, 2019 Assessment & Plan (1) CVA (cerebral vascular accident): Reason Critically Ill: 69-year-old male presents to the ICU following acute CVA status post TPA administration. Neuro - CVA/NICHELLE/vertebral artery stenosispatient presents with symptoms of left facial droop, left upper extremity weakness; TPA administered at 1323 -CT head negative for acute changes, 5 mm subacute old infarct right periventricular region -CTA head: Occlusion and or critical stenosis proximal aspect of right MCA, scattered arthrosclerotic narrowing throughout anterior, left middle, and posterior cerebral system, severe narrowing of cavernous aspect of right ICA -CTA neck: Critical 99% subtotal occlusion of the right ICA, no evidence of hemodynamically significant left ICA stenosis, 80% stenosis of left vertebral artery at C5-C6 level secondary to uncovertebreal joint degenerative disease -Given severity of cerebral and carotid artery disease, hospitalist discussed with neurology in regard to transfer to tertiary center. Per their conversation, patient has improved following TPA administration, and will monitor per 24-hour TPA protocol in ICU. If patient were to decompensate, would transfer to tertiary center for eval for thrombectomy. -Endovascular consult -Neurology consulted will follow recommendations, follow-up recommend for ASA/Plavix -First day TPA administration protocol -Holding BP medications, will allow permissive hypertension within goal range parameters -Follow-up MRI read -Follow-up echo in a.m. -Frequent neuro exams -Followup hemoglobin A1c and lipid profile -Patient likely to downgrade at 24 hours pending 24-hour imaging Cardiac - HTNholding home meds for permissive hypertension, will treat if indicated with PRN's Respiratory - No history of respiratory disease, currently maintaining sats on room air Monitor on continuous pulse ox GI - N.p.o. pending swallow RENAL/LYTES - CKD stage IIIcreatinine consistent with prior baseline, follows with Dr. Silva outpatient -We will continue to monitor with routine BMPs -Continue maintenance fluid resuscitation -Monitor electrolytes and replete as indicated -Avoid nephrotoxins - Strict I's and O's ENDO - No history diabetes -ICU hyperglycemic protocol -Follow-up hemoglobin A1c Hypothyroidismcontinue home Synthroid dose HEME - H&H stable, monitor routine CBCs ID - No indication for infectious process at this time LINES/IV ACCESS - Peripheral IVs DVT PROPHYLAXIS - SCDs, hold anticoagulation for first 24 hours following TPA administration (2) Hypercholesterolemia: (3) Hypertension: (4) Chronic kidney disease, stage III (moderate): (5) Vertebral artery stenosis: (6) Carotid artery stenosis: Admission and Anticipated Discharge Date Admission Date: November 06, 2019 Results & Data Results & Data ([facility]) Vital Signs (Past 12 Hours) Vital Signs Temp Pulse Resp BP Pulse Ox Pulse Ox 11/07/19 09:23 36.6 C 80 20 126/75 97 11/07/19 08:23 36.6 C 60 20 132/75 11/07/19 08:09 96 11/07/19 07:23 36.8 C 66 20 127/72 96 11/07/19 06:23 36.9 C 58 L 20 127/64 95 11/07/19 05:23 36.8 C 66 16 147/62 H 94 11/07/19 04:23 37 C 64 16 151/68 H 94 11/07/19 03:23 36.8 C 65 16 130/70 94 11/07/19 02:23 37 C 66 16 128/77 94 11/07/19 01:23 37 C 63 16 117/66 95 11/07/19 00:23 37 C 63 16 157/68 H 95 11/06/19 23:23 37 C 62 16 125/73 97 11/06/19 22:23 37 C 68 20 139/70 97 Coding Diagnoses CVA (cerebral vascular accident) I63.511 CVA mechanism: occlusion Laterality of affected vessel: right Precerebral and cerebral artery: middle cerebral artery Hypercholesterolemia E78.00 Hypertension I10 Hypertension type: essential hypertension Chronic kidney disease, stage III (moderate) N18.3 Vertebral artery stenosis I65.09 Carotid artery stenosis I65.29 (1) Hypertension Hypertension type: essential hypertension Qualified Code(s): I10 - Essential (primary) hypertension (2) CVA (cerebral vascular accident) CVA mechanism: occlusion Laterality of affected vessel: right Precerebral and cerebral artery: middle cerebral artery Qualified Code(s): I63.511 - Cerebral infarction due to unspecified occlusion or stenosis of right middle cerebral artery
--- NOTE | 2019-11-07 11:26 | Neurology Consultation ---
Date of Consultation November 07, 2019 Assessment & Plan (1) CVA (cerebral vascular accident): (2) Carotid artery stenosis: (3) Vertebral artery stenosis: (4) Chronic cerebral ischemia: (5) Hypertension: Patient has had an acute right hemispheric CVA a relatively small nature. He had transient left ezequiel paresis and dysarthria which has resolved. He received tPA. Today he has no focal neurologic deficits, meningeal signs, or encephalopathy. NIH Stroke Scale equals 0 this morning. Unfortunate patient has a critical stenosis of the origin of the right internal carotid artery plus some narrowing in the cavernous portion of the right internal carotid artery as well as a near occlusion of the proximal right middle cerebral artery. MRI also shows some old ischemia mostly in the right middle cerebral artery distribution. Risk factors are hypertension and dyslipidemia. It is not of heart disease or diabetes and he quit cigarette smoking in 1985. Recommendations: 1. Agree with 81 mg aspirin tablet +70 5 mg clopidogrel daily. There is no indication for anticoagulation at this time. 2. This patient is a candidate currently for a right carotid endarterectomy (sooner than later) but I am concerned about the relative narrowing in the cavernous portion of the right ICA as well as the near occlusion of the right middle cerebral artery. I am not certain if the presence of the right-sided intracranial narrowing is and stenoses change our ability to do the right internal carotid end arterectomy. I discussed this with Dr. Haynes 3. Increase activity as able. 4. I think it is reasonable to keep simvastatin at the current dose, as his lipid parameters are quite good currently. Technically, however, he is a high dose statin candidate. 5. I will follow. Overall, I spent a total of 100 minutes with this case including review of records, review of MRI films, direct evaluation the patient at bedside, and discussion of the case with the patient and RN at bedside as well as Dr. Raya, Dr. Haynes, and Dr. Bedolla, including differential diagnosis and treatment options. History of Present Illness Reason for Consultation: Patient is a 69-year-old who I was asked to see at the request of Dr. saleem, for neurologic consultation regarding stroke. Requesting Physician: Dr. Lagunas Attending Physician: Saul Bedolla History of Present Illness Patient has a 30 year history of hypertension. He has been on simvastatin for probably 15 years or so. He has no heart disease or diabetes. He quit cigarette smoking in 1985. He does not remember a stroke before. He has known chronic kidney disease followed by Dr. Silva. Patient got up early in the morning on November 05 and took out trash and moved wwod to the [facility] for mushroom picker. He then went back to bed and woke up around 10 15. He was doing fairly well when he got up but within 15 minutes, he noted that his left hand was weak and he could not write or hold things well with his left hand. He felt that his speech was slurred and his noted a left facial droop. His balance was off but he did not feel that his leg was weak on the left. He had no headache or pain, vision problems or dizziness. He arrived to the emergency room November 05 at 1235 with a temperature of 37.0, pulse 67, respiratory rate 16, blood pressure 125/57, and O2 saturation 98%. He had a mild left facial droop and was clumsy with the left hand including writing. He received tPA. CT angiography of the head and neck were delayed as the creatinine was being obtained. CT scan of the head without contrast showed no acute changes but was an old right periventricular 5 mm stroke. CBC and Chem profile were largely unremarkable although the BUN was 35 and creatinine 1.96. Glucose was 139. Urinalysis and drug screen were unremarkable. CT angiography of the head and neck showed a near occlusion of the proximal right middle cerebral artery with some narrowing of the cavernous portion of the right ICA. In addition there was a 99% stenosis at the origin of the right internal carotid artery an 80% stenosis of the left vertebral artery at C5-6 which could be bony compression. MRI of the brain showed a small acute stroke in the right deep frontal chambers radiata/right lentiform nucleus. There was moderate old small-vessel ischemic disease in the right middle cerebral artery territory much more than on the left. Patient has had no further events or problems. Triglycerides were 104 and cholesterol 145. Hemoglobin A1c was 5.7. Allergies Allergy/AdvReac Type Severity Reaction Status Date / Time mold Allergy Unknown RUNNY Verified 03/05/19 08:50 NOSE, ITCHY EYES, COUGH pollen extracts Allergy Unknown RUNNY Verified 03/05/19 08:50 NOSE, ITCHY EYES, COUGH No Known Drug Allergies AdvReac Unknown Unverified 11/06/19 12:44 Home Medications Home Medications Medication Instructions Recorded Confirmed Type allopurinol 300 mg tablet 300 mg PO DAILY #90 tab 01/20/19 11/06/19 History cholecalciferol (vitamin D3) 25 1,000 units PO DAILY tab 01/20/19 11/06/19 History mcg (1,000 unit) tablet levothyroxine 75 mcg tablet 75 mcg PO QAM #30 tab 01/20/19 11/06/19 History omeprazole 20 mg capsule,delayed 20 mg PO DAILY PRN #30 cap 01/20/19 11/06/19 History release simvastatin 40 mg tablet 40 mg PO HS #90 tab 01/20/19 11/06/19 History lisinopril 10 1 tab PO DAILY 03/05/19 11/06/19 History mg-hydrochlorothiazide 12.5 mg tablet ascorbic acid (vitamin C) [Vitamin 500 mg PO DAILY 11/06/19 11/06/19 History C] diclofenac sodium 1 applic TOPICAL DAILY PRN 11/06/19 11/06/19 History diphenhydramine HCl [Benadryl 25 mg PO DAILY 11/06/19 11/06/19 History Allergy] pseudoephedrine HCl 30 mg PO QAM 11/06/19 11/06/19 History triamcinolone acetonide 1 applic TOPICAL DAILY PRN 11/06/19 11/06/19 History Patient History Medical History (Updated 11/07/19 @ 11:20 by Pasha Garcia MD) Chronic gout Chronic kidney disease, stage III (moderate) (Chronic) Hypertension (Chronic) Hypothyroidism Vitamin D deficiency (Chronic) Surgical History S/P tonsillectomy Status post right knee replacement Status post total hip replacement, bilateral Family History Mother , age 92 of congestive heart failure Heart disease Father , age 92 of complications from a perforated ulcer No problems noted. 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 Hx Substance Use: No Review of Systems Constitutional: no fever, no fatigue and no weakness Eyes: no diplopia, no eye pain and no worsening vision Ear, Nose, Mouth, Throat: no ear pain, no tinnitus, no hearing loss, no dizziness, no hoarseness and no dysphagia Respiratory: no cough and no dyspnea Cardiovascular: no chest pain, no palpitations and no lightheadedness Gastrointestinal: no abdominal pain, no nausea and no vomiting Genitourinary: no dysuria and no urinary incontinence Musculoskeletal: no back pain, no neck pain, no radicular pain, no joint pain and no myalgia Integumentary: no rash and no lesions Neurologic: no gait abnormality, no localized weakness, no generalized weakness, no tingling, no numbness, no tremor(s), no abnormal movements, no headache(s), no abnormal speech, no confusion and no memory loss Psychiatric: no depression, no irritability, no anxiety, no difficulty concentrating, no confusion and no hallucinations Endocrine: no fatigue and no flushing Hematologic / Lymphatic: no easy bleeding and no easy bruising Allergy / Immunological: no urticaria and no problem reported Exam (Neuro) Physical Exam: The patient is left-handed. The patient is awake, alert, and attentive. Speech is normal without any aphasia or dysarthria. he can name objects, repeat phrases, and has normal spontaneous speech. Mentation and thought processes are intact, with orientation to person, place and time, and normal fund of knowledge. Attention and concentration are normal. Mood and affect are normal and appropriate. General appearance and grooming are normal. Short and long-term memory are intact. The discs are sharp with positive venous pulsations bilaterally. There are no exudates, hemorrhages, or blood vessel changes seen. Pupils are 4 mm bilaterally and reactive to light. Extraocular eye muscles are intact without nystagmus. Visual acuity and visual hill seem normal grossly to confrontation. There are no deficits to sensation in the face in all 3 distributions of the fifth cranial nerve bilaterally. Corneal reflexes are positive bilaterally. Facial strength and symmetry was normal bilaterally. Hearing seems normal to whisper and finger rub bilaterally. Palate moves well without asymmetry. There is normal sternocleidomastoid and trapezius (shoulder shrug) strength bilaterally. Tongue is midline with good strength bilaterally. Neck has a full range of motion without discomfort. There are no cervical bruits bilaterally. There are no cranial or ocular bruits. Heart is without murmur. There is a regular rhythm and rate. Cervical, thoracic, and lumbar spine are nontender to palpation. Gait is not tested but stance sitting up in bed is normal. With outstretched arms there is no drift. There are no resting, postural, or action tremors. There is no ataxia with finger to nose testing. There is good facility in the hands. No other abnormal involuntary movements are noted. Motor strength is 5/5 diffusely in the arms bilaterally including deltoids, biceps, triceps, brachioradialis, wrist flexors and extensors, call center specialist, and intrinsic hand muscles. Motor strength is 5/5 diffusely in the legs bilaterally including hip flexors, quadriceps, hamstrings, gastrocnemius, tibialis anterior, tibialis posterior, and Peroneii muscles. Toe extensors are normal and there is good bulk in the extensor digitorum brevis muscles bilaterally. The limbs have good tone without rigidity or spasticity. There is no atrophy noted in the muscles. Muscle bulk is normal, there is no tenderness to palpation, no myotonia to percussion, and no fasciculations seen. Sensory examination is intact to touch and pin throughout all 4 limbs diffusely. Reflexes are 2/4 in the biceps, triceps, brachioradialis, quadriceps, and Achilles tendons bilaterally. There is no clonus bilaterally. Toes are downgoing with plantar stimulation bilaterally. Peripheral pulses are present and of normal quality distally in all 4 limbs. There is no peripheral edema noted in the limbs. Results & Data ([facility]) Vital Signs (Past 12 Hours) Vital Signs Temp Pulse Resp BP Pulse Ox Pulse Ox 11/07/19 10:23 36.8 C 76 20 167/91 H 97 11/07/19 09:23 36.6 C 80 20 126/75 97 11/07/19 08:23 36.6 C 60 20 132/75 11/07/19 08:09 96 11/07/19 07:23 36.8 C 66 20 127/72 96 11/07/19 06:23 36.9 C 58 L 20 127/64 95 11/07/19 05:23 36.8 C 66 16 147/62 H 94 11/07/19 04:23 37 C 64 16 151/68 H 94 11/07/19 03:23 36.8 C 65 16 130/70 94 11/07/19 02:23 37 C 66 16 128/77 94 11/07/19 01:23 37 C 63 16 117/66 95 11/07/19 00:23 37 C 63 16 157/68 H 95 11/06/19 23:23 37 C 62 16 125/73 97 Diagnostic Findings MR brain wo con HISTORY: 69 years-old Male CVA acute strokelike symptoms COMPARISON: Head CT, CTA head neck of same day TECHNIQUE: Multiplanar multisequence MRI of the brain was obtained without the use of IV contrast. FINDINGS: Focal area of ovoid restricted diffusion involves the right frontal lobe chambers radiata and right lentiform nucleus measuring 2.3 x 1.0 x 2.3 cm in AP, transverse and coronal, dimensions with increased T2/FLAIR signal and decreased T1 signal. No additional restricted diffusion identified. No acute intracranial hemorrhage, midline shift, abnormal extra axial collection, hydrocephalus or definite intracranial mass. Study is mildly motion degraded. Mild age-related involutional changes. Mild patchy white matter T2/FLAIR hyperintensities suggest chronic microvascular ischemic disease. There are a few remote lacunar infarctions noted involving the periventricular right cerebral hemisphere. No pathologic blooming artifact on the T2 star series. Loss of the normal flow-void involving the distal cervical segment, petrous and cavernous segments right internal carotid artery as described on recent CTA. Mastoid air cells are clear. Mild mucosal thickening of the paranasal sinuses. The skull, orbits and soft tissues are unremarkable. IMPRESSION: 1. Acute infarct of the right frontal lobe chambers radiata and right lentiform nucleus measures up to 2.3 cm in greatest dimension. No acute intracranial hemorrhage or midline shift. 2. There is loss of the normal right internal carotid artery flow void seen within the distal cervical segment, petrous and cavernous segments. When correlated with recent CTA this correlates with long segment high-grade stenosis. 3. Multiple remote lacunar infarction of the right MCA territory. ACT 112: Negative or not required by law. The above report was generated using voice recognition software. It may contain grammatical, syntax or spelling errors. Electronically signed by: Antonio Trevizo M.D. 11/07/2019 7:06 AM PG Care Time/CCT Total # of Minutes Spent Total Time Spent with Patient: Total time spent is greater than 50% in coordination of care (as documented) at patient's floor/unit and/or counseling patient: Coding Level of Care Code 27842 Initial Inpt Care Lvl 3 Diagnoses CVA (cerebral vascular accident) I63.511 CVA mechanism: occlusion Laterality of affected vessel: right Precerebral and cerebral artery: middle cerebral artery Carotid artery stenosis I65.29 Vertebral artery stenosis I65.09 Chronic cerebral ischemia I67.82 Hypertension I10 Hypertension type: essential hypertension Time Spent (min) 100 Comment Add [id number] to the [id number] (1) CVA (cerebral vascular accident) CVA mechanism: occlusion Laterality of affected vessel: right Precerebral and cerebral artery: middle cerebral artery Qualified Code(s): I63.511 - Cerebral infarction due to unspecified occlusion or stenosis of right middle cerebral artery (2) Hypertension Hypertension type: essential hypertension Qualified Code(s): I10 - Essential (primary) hypertension
--- NOTE | 2019-11-07 13:48 | CT Scan Report ---
CT head/brain wo con CT DOSE: 823.94 mGycm HISTORY: Stroke Alert, CVA 24 hours. post TPA TECHNIQUE: Multiaxial CT images of the head were performed without the use of intravenous contrast. A dose lowering technique was utilized adhering to the principles of ALARA. Comparison: MRI 11/06/2019. CT brain 11/06/2019. Findings: The paranasal sinuses and mastoid air cells are clear. Interval development of right perive ntricular infarct as noted on the patient's prior MRI. In this primarily involves the right external capsule. No evidence for hemorrhage. No midline shift. Impression: Subacute/acute right periventricular infarcts similar compared to the patient's prior MRI study. No e vidence for acute intracranial hemorrhage or midline shift. ACT 112: Negative or not required by law. The above report was generated using voice recognition software. It may contain grammatical, syntax or spelling errors. Electronically signed by: Ivan Fields M.D. 11/07/2019 1:47 PM
[2019-11-07] MEDS: CLOPIDOGREL BISULFATE 75 MG TAB PO SCH (14:42)
[2019-11-07] MEDS: ASPIRIN 81 MG ECTAB PO SCH (14:42)
--- NOTE | 2019-11-07 15:30 | Consultation ---
Date of Consultation November 07, 2019 Assessment & Plan (1) Cerebrovascular accident (CVA) due to stenosis of carotid artery: This gentleman had a cerebrovascular accident involving his right hemisphere resulting in left arm weakness that has resolved following TPA infusion. His carotid CTA shows a preocclusive string sign of the right internal carotid artery. The internal carotid artery above this is diminutive in size most likely secondary to slow and poor flow. There is also a lesion in the MCA origin. This was discussed with Dr. Durand who is the neurologist for the stroke alert with [facility]. We are both in agreement that a carotid endarterectomy is recommended due to the preocclusive lesion. He recommended this time and nothing be done for the lesion of the MCA at this time except for a repeat CTA at a later date. He believes that this lesion may even be a recannulated thrombus from a previous incident. The patient and his were concerned and they thought that intervening on the middle cerebral artery lesion first was what Dr. Durand suggested yesterday however intervention was only going to be done if his condition worsened or did not improve with the TPA. Dr. Garcia saw this patient in consult and agrees with carotid endarterectomy. Patient would like to discuss this with Dr. Garcia prior to committing to go ahead with the endarterectomy.. If agreeable surgery will be planned for Sunday a.m. We will continue him on the aspirin and Plavix without stopping it prior to surgery. Thank you very much for letting us participate in the care of this patient. History of Present Illness Reason for Consultation: Preocclusive right internal carotid artery stenosis with CVA. Attending Physician: Saul Bedolla History of Present Illness This is a 69-year-old gentleman who was in his usual state of good health until yesterday at which time he developed sudden onset of vertigo and left arm weakness. He noticed his left arm was weak and could not write or spread butter on his toast. This progressed to weakness throughout his left arm. He went to the emergency room. Tele-stroke was performed and TPA was given. His vertigo lasted for about 5 minutes prior to coming to the hospital. Is a left arm weakness improved to only minimal discoordination of his left hand according to the patient. He claims he has difficulty writing but it is almost back to normal. He denies any previous occurrences of TIAs or strokes. Allergies Allergy/AdvReac Type Severity Reaction Status Date / Time mold Allergy Unknown RUNNY Verified 03/05/19 08:50 NOSE, ITCHY EYES, COUGH pollen extracts Allergy Unknown RUNNY Verified 03/05/19 08:50 NOSE, ITCHY EYES, COUGH No Known Drug Allergies AdvReac Unknown Unverified 11/06/19 12:44 Home Medications Home Medications Medication Instructions Recorded Confirmed Type allopurinol 300 mg tablet 300 mg PO DAILY #90 tab 01/20/19 11/06/19 History cholecalciferol (vitamin D3) 25 1,000 units PO DAILY tab 01/20/19 11/06/19 History mcg (1,000 unit) tablet levothyroxine 75 mcg tablet 75 mcg PO QAM #30 tab 01/20/19 11/06/19 History omeprazole 20 mg capsule,delayed 20 mg PO DAILY PRN #30 cap 01/20/19 11/06/19 History release simvastatin 40 mg tablet 40 mg PO HS #90 tab 01/20/19 11/06/19 History lisinopril 10 1 tab PO DAILY 03/05/19 11/06/19 History mg-hydrochlorothiazide 12.5 mg tablet ascorbic acid (vitamin C) [Vitamin 500 mg PO DAILY 11/06/19 11/06/19 History C] diclofenac sodium 1 applic TOPICAL DAILY PRN 11/06/19 11/06/19 History diphenhydramine HCl [Benadryl 25 mg PO DAILY 11/06/19 11/06/19 History Allergy] pseudoephedrine HCl 30 mg PO QAM 11/06/19 11/06/19 History triamcinolone acetonide 1 applic TOPICAL DAILY PRN 11/06/19 11/06/19 History Patient History Medical History Chronic gout Chronic kidney disease, stage III (moderate) (Chronic) Hypertension (Chronic) Hypothyroidism Vitamin D deficiency (Chronic) Surgical History S/P tonsillectomy Status post right knee replacement Status post total hip replacement, bilateral Family History Mother , age 92 of congestive heart failure Heart disease Father , age 92 of complications from a perforated ulcer No problems noted. 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 Hx Substance Use: No Review of Systems Review of Systems: All systems reviewed & are unremarkable except as noted in HPI & below Physical Exam Eyes: PERRL, conjunctivae normal, anicteric sclerae Neck: trachea midline Respiratory: normal respiratory effort, lungs clear to auscultation Auscultation: lungs clear to auscultation bilaterally Cardiovascular: RRR, no murmur, no edema Vessels: femoral pulses present, posterior tibial pulses present, dorsalis pedis pulses present and radial pulses present; no carotid bruit Extremities: normal capillary refill Gastrointestinal (Abdomen): Inspection/Auscultation: abdomen normal to inspection; abdomen not distended Musculoskeletal: no cyanosis or clubbing, extremities motor strength 5/5 Skin: no rashes, warm and dry Neurologic: normal touch/pain/proprioception, CN's II-XI intact bilaterally, moves all extremities and awake; no focal motor deficits Speech / Cognition: normal speech and no expressive aphasia Motor/Sensory: normal movement and no sensory deficit Cranial Nerves: PERRL, EOM intact bilaterally and tongue midline Psychiatric: Orientation: alert and oriented x 3 Results & Data Vital Signs (Past 12 Hours) Vital Signs Temp Pulse Resp BP Pulse Ox Pulse Ox 11/07/19 13:23 36.9 C 84 20 135/74 95 11/07/19 12:24 36.8 C 72 20 135/83 98 11/07/19 11:23 36.9 C 70 20 159/72 H 95 11/07/19 10:23 36.8 C 76 20 167/91 H 97 11/07/19 09:23 36.6 C 80 20 126/75 97 11/07/19 08:23 36.6 C 60 20 132/75 11/07/19 08:09 96 11/07/19 07:23 36.8 C 66 20 127/72 96 11/07/19 06:23 36.9 C 58 L 20 127/64 95 11/07/19 05:23 36.8 C 66 16 147/62 H 94 11/07/19 04:23 37 C 64 16 151/68 H 94
--- NOTE | 2019-11-07 17:17 | XCELERA ---
[id number]
[2019-11-07] MEDS: HEPARIN SOD 5,000 UNIT/0.5 ML VIAL SQ SCH (21:05)
[2019-11-07] MEDS: ATORVASTATIN 40 MG TAB PO SCH (21:05)
--- NOTE | 2019-11-07 22:44 | Hospitalist Progress Note ---
Date of Service November 07, 2019 Assessment & Plan (1) CVA (cerebral vascular accident): Mild ongoing left hand dexterity deficits and mild left sided facial droop s/p alteplase, significantly improved from initial stroke symptoms will transfer to PCU. Patient improved after tPA. will place on ASA and plavix. No signs of bleeding on repeat ct scan. Will need CTA of head and neck prior to procedure on sunday without contrast. Protocol vital sign checks s/p tPA infusion current BP adequate Dr. Garcia updated me and I informed patient that he is now agreeable after discussing the case with the Stroke telemedicine doctor from [facility]. Will prescribe high intensity statin although LDL @ goal on simvastatin in August therefore will defer to neurology whether he goes back on this CT head, MRI brain w/o contrast - 24 hours after alteplase given Consult neurology Thony (2) Chronic kidney disease, stage III (moderate): Cr@ baseline Monitor with serial BMP especially post contrast (3) Hypertension: will place his usual anti-hypertensives on hold given normal BP as present (4) Hypercholesterolemia: LDL @ goal as above on simvastatin, will start high intensity atorvastatin but (5) Hypothyroidism: Continue levothyroxine 75 mcg PO daily (6) Chronic gout: Continue allopurinol (7) DVT prophylaxis: heparin SCDs Admission and Anticipated Discharge Date Admission Date: November 06, 2019 Subjective Patient reports improveemnt in his left hand, but states his dexterity and fine motor movements of his hand have not improved. He states it is difficult to use his left hand to eat with utensils. He is also concerned about the ultimate treatment plan. He is aware that Dr. Garcia will talk with [facility] to discuss if proceeding with the Carotid endarterectomy should be the next step. Review of Systems Review of Systems: All systems reviewed & are unremarkable except as noted in HPI & below Physical Exam Physical Exam: Constitutional: WD/WN, vitals as above no acute distress Eyes: + anicteric sclerae, EOM intact bilaterally (without diplopia) and + abnormal pupil size; + no PERRL (Sluggish right pupil constriction with contralateral light) ENMT: external ear and nose normal, oropharynx normal Neck: trachea midline Respiratory: normal respiratory effort, lungs clear to auscultation Cardiovascular: RRR, no murmur, no edema Gastrointestinal (Abdomen): normal bowel sounds, soft, nontender, no hepatosplenomegaly Musculoskeletal: Head/Neck/Chest: normocephalic and head atraumatic Skin: no rashes, warm and dry Neurologic: moves all extremities, no focal deficits, 5/5 strength in all extremities. +Coordination: normal jewicr-im-btku test and normal eyxc-xq-deyi test Unable to perform gait exam due to bedrest Psychiatric: A+Ox3, euthymic affect Genitourinary: no CVA tenderness Results & Data Results & Data ([facility]) Vital Signs (Past 12 Hours) Vital Signs Temp Pulse Pulse Pulse Resp BP BP 11/07/19 18:58 36.8 C 62 18 117/83 11/07/19 18:12 64 19 158/66 H 11/07/19 18:00 67 20 11/07/19 17:42 61 16 143/74 H 11/07/19 17:12 62 16 141/80 H 11/07/19 17:00 63 16 11/07/19 16:42 70 18 151/77 H 11/07/19 16:12 61 16 154/85 H 11/07/19 16:00 61 16 11/07/19 15:42 62 15 140/69 11/07/19 15:12 64 16 140/73 11/07/19 15:00 70 13 11/07/19 14:42 67 18 132/71 11/07/19 14:11 65 19 144/74 H 11/07/19 14:00 74 18 11/07/19 13:42 72 20 125/78 11/07/19 13:23 36.9 C 84 20 135/74 11/07/19 13:12 72 15 135/74 11/07/19 13:00 69 18 11/07/19 12:41 67 18 143/77 H 11/07/19 12:24 36.8 C 72 20 135/83 11/07/19 12:12 70 20 135/83 11/07/19 12:00 80 17 11/07/19 11:43 83 26 H 145/120 H 11/07/19 11:23 36.9 C 70 20 159/72 H 11/07/19 11:11 77 19 159/72 H 11/07/19 11:00 66 16 Pulse Ox 11/07/19 18:58 97 11/07/19 18:12 97 11/07/19 18:00 95 11/07/19 17:42 95 11/07/19 17:12 95 11/07/19 17:00 95 11/07/19 16:42 95 11/07/19 16:12 95 11/07/19 16:00 94 11/07/19 15:42 93 11/07/19 15:12 95 11/07/19 15:00 95 11/07/19 14:42 93 11/07/19 14:11 94 11/07/19 14:00 95 11/07/19 13:42 94 11/07/19 13:23 95 11/07/19 13:12 94 11/07/19 13:00 94 11/07/19 12:41 94 11/07/19 12:24 98 11/07/19 12:12 93 11/07/19 12:00 94 11/07/19 11:43 90 11/07/19 11:23 95 11/07/19 11:11 96 11/07/19 11:00 95 PG Care Time/CCT Total # of Minutes Spent Total Time Spent with Patient: Total time spent is greater than 50% in coordination of care (as documented) at patient's floor/unit and/or counseling patient: Coding Level of Care Code 56882 Subseq Hosp Care Lvl 3 Diagnoses CVA (cerebral vascular accident) I63.511 CVA mechanism: occlusion Laterality of affected vessel: right Precerebral and cerebral artery: middle cerebral artery Chronic kidney disease, stage III (moderate) N18.3 Hypertension I10 Hypertension type: essential hypertension Hypercholesterolemia E78.00 Hypothyroidism E03.9 Hypothyroidism type: unspecified Chronic gout M1A.9XX0 Gout etiology: unspecified cause Gout site: unspecified site Presence of tophus: without tophus DVT prophylaxis Z29.9 Time Spent (min) 35 (1) Hypothyroidism Hypothyroidism type: unspecified Qualified Code(s): E03.9 - Hypothyroidism, unspecified (2) Chronic gout Gout etiology: unspecified cause Gout site: unspecified site Presence of tophus: without tophus Qualified Code(s): M1A.9XX0 - Chronic gout, unspecified, without tophus (tophi) (3) Hypertension Hypertension type: essential hypertension Qualified Code(s): I10 - Essential (primary) hypertension (4) CVA (cerebral vascular accident) CVA mechanism: occlusion Laterality of affected vessel: right Precerebral and cerebral artery: middle cerebral artery Qualified Code(s): I63.511 - Cerebral infarction due to unspecified occlusion or stenosis of right middle cerebral artery
[2019-11-08] MEDS: LEVOTHYROXINE SODIUM 75 MCG TABLET PO SCH (06:45)
[2019-11-08] MEDS: HEPARIN SOD 5,000 UNIT/0.5 ML VIAL SQ SCH ×3 (06:46→21:21)
[2019-11-08] MEDS: allopurinoL 300 MG TAB PO SCH (07:47)
[2019-11-08] MEDS: CLOPIDOGREL BISULFATE 75 MG TAB PO SCH (07:47)
[2019-11-08] MEDS: ASPIRIN 81 MG ECTAB PO SCH (07:47)
[2019-11-08] MEDS: LACTATED RINGER'S 1,000 ML IV SCH (07:51)
--- NOTE | 2019-11-08 10:09 | Neurology Progress Note ---
Date of Service November 08, 2019 Assessment & Plan (1) CVA (cerebral vascular accident): (2) Carotid artery stenosis: (3) Vertebral artery stenosis: (4) Chronic cerebral ischemia: (5) Hypertension: Patient had an acute right hemispheric CVA sometime prior to admission November 05. He had symptoms 2 or 3 days before the day of admission when his symptoms became worse. The stroke is relatively small in the right middle cerebral artery distribution. He had transient left hemiparesis and dysarthria which has resolved, although he still has some problems with handwriting. He received tPA. Today he has no focal neurologic deficits, meningeal signs, or encephalopathy. NIH Stroke Scale equals 0 this morning. Unfortunately, this patient has a critical stenosis of the origin of the right internal carotid artery plus some narrowing in the cavernous portion of the right internal carotid artery, as well as a near occlusion of the proximal right middle cerebral artery. MRI also shows some old ischemia mostly in the right middle cerebral artery distribution. Risk factors are hypertension and dyslipidemia. It is not of heart disease or diabetes and he quit cigarette smoking in 1985. Yesterday, I spoke with Dr. Durand, [facility] regarding this case. He agrees that a right carotid endarterectomy relatively soon is the next step. He wondered about obtaining another CT angiography of the head prior to surgery but this would be more for academic interest. Patient and his was present at bedside today want to transfer to either [place] or [place] for any possible surgery. Recommendations: 1. Agree with 81 mg aspirin tablet +75 mg clopidogrel daily. There is no indication for anticoagulation at this time. 2. This patient is a candidate currently for a right carotid endarterectomy (sooner than later) , but the patient desires to have this done at an outside institution. 3. Increase activity as able. 4. I think it is reasonable to keep simvastatin at the current dose, as his lipid parameters are quite good currently. Technically, however, he is a high dose statin candidate. 5. I have no further neurologic testing or treatment recommendations to make at this time otherwise. Overall, I spent a total of 40 minutes with this case including review of records, review of MRI films with the patient and his , direct evaluation the patient at bedside, and discussion of the case with the patient and at bedside, as well as Dr. Lagunas, including differential diagnosis and treatment options. Admission and Anticipated Discharge Date Admission Date: November 06, 2019 Subjective The patient feels well with no weakness or numbness, speech problems, vision issues, or other problems except his handwriting still isn't back to normal. It is improved, however. Nursing reports no new issues or problems overnight. Blood pressure is 130/84 he is afebrile. Repeat CT scan of the head was unremarkable. Results & Data ([facility]) Vital Signs (Past 12 Hours) Vital Signs Temp Pulse Pulse Resp BP Pulse Ox 11/08/19 08:15 37.1 C 66 15 130/84 95 11/08/19 07:39 59 L 11/08/19 04:26 36.6 C 74 18 143/73 H 98 11/08/19 00:27 36.6 C 70 20 144/75 H 97 Exam (Neuro) Physical Exam: He is awake and alert. Speech is without aphasia or dysarthria. Mood and affect are normal appropriate. Thought processes are intact with good long and short-term memory. Motor strength is symmetrical limbs. He has no abnormal involuntary movements. Extraocular eye muscles are intact without nystagmus. There is no facial droop. Tongue is midline. PG Care Time/CCT Total # of Minutes Spent Total Time Spent with Patient: Total time spent is greater than 50% in coordination of care (as documented) at patient's floor/unit and/or counseling patient: Coding Level of Care Code 37022 Subseq Hosp Care Lvl 3 Diagnoses CVA (cerebral vascular accident) I63.511 CVA mechanism: occlusion Laterality of affected vessel: right Precerebral and cerebral artery: middle cerebral artery Carotid artery stenosis I65.29 Vertebral artery stenosis I65.09 Chronic cerebral ischemia I67.82 Hypertension I10 Hypertension type: essential hypertension Time Spent (min) 40 (1) CVA (cerebral vascular accident) CVA mechanism: occlusion Laterality of affected vessel: right Precerebral and cerebral artery: middle cerebral artery Qualified Code(s): I63.511 - Cerebral infarction due to unspecified occlusion or stenosis of right middle ce rebral artery (2) Hypertension Hypertension type: essential hypertension Qualified Code(s): I10 - Essential (primary) hypertension
--- NOTE | 2019-11-08 18:09 | Hospitalist Progress Note ---
Date of Service November 08, 2019 Assessment & Plan (1) CVA (cerebral vascular accident): Possible very mild facial droop remains but this may have been his baseline Repeat CT head no intracranial hemorrhage MRI - confirmed right frontal lobe chambers radiata ischemic stroke CTA head/neck -near occlusion and/or critical 99%/subtotal occlusion of the R ICA, critical stenosis proximal aspect R MCA, considerable to severe narrowing of cavernous aspect of R ICA, 80% stenosis of left vertebral artery, scattered atherosclerotic narrowing considered mild to moderate throughout the remainder of the anterior, left middle and posterior cerebral systems Current BP adequate Continue atorvastatin 40 mg, although LDL @ goal on simvastatin in August therefore will defer to neurology whether he goes back on this Started on dual antiplatelet therapy with aspirin and Plavix Appreciate neurology consult, discussed care with Dr. Garcia at bedside (2) Carotid artery stenosis: Right-sided as described above. No evidence of hemodynamically significant left internal carotid artery stenosis Patient requests transfer on discussion with Dr. Garcia and myself to [place] for potential carotid endarterectomy Discussed with Dr Krueger from neurology at [place] and he will be transferred to the stroke unit under the care of neurology at [place] (3) Vertebral artery stenosis: (4) Stenosis of right middle cerebral artery: (5) Hypertension: will place his usual anti-hypertensives on hold given normal BP as present (6) Hypercholesterolemia: LDL @ goal as above on simvastatin, will start high intensity atorvastatin (7) Chronic kidney disease, stage III (moderate): Cr stable post IV contrast, 1.63 (8) Hypothyroidism: Continue levothyroxine 75 mcg PO daily (9) Chronic gout: Continue allopurinol (10) DVT prophylaxis: Heparin 5000 units subcu q8h [facility] Admission and Anticipated Discharge Date Admission Date: November 06, 2019 Subjective Patient doing extremely well. Not noticing any loss of left hand dexterity. His is unsure whether his facial droop remains. He reports no headache, loss of sensation, weakness, change in speech, vision, hearing. No neck pain. Patient requests transfer at this time, he plans to discuss with his regarding [facility] versus [facility]. Review of Systems Review of Systems: All systems reviewed & are unremarkable except as noted in HPI & below Physical Exam Constitutional: WD/WN, vitals as above no acute distress Eyes: + anicteric sclerae and EOM intact bilaterally; normal pupil size ENMT: external ear and nose normal, oropharynx normal Neck: trachea midline Respiratory: normal respiratory effort, lungs clear to auscultation Cardiovascular: RRR, no murmur, no edema Gastrointestinal (Abdomen): normal bowel sounds, soft, nontender, no hepatosplenomegaly Musculoskeletal: no cyanosis or clubbing, extremities motor strength 5/5 Skin: no rashes, warm and dry Neurologic: moves all extremities and awake; not confused Speech / Cognition: normal speech Motor/Sensory: no tremor Cranial Nerves: normal facial strength (Very mild left lower facial droop) Coordination: normal irycmw-[id number] test (Improved left hand dexterity from admission) Psychiatric: A+Ox3, euthymic affect Results & Data Results & Data ([facility]) Vital Signs (Past 12 Hours) Vital Signs Temp Pulse Pulse Resp BP BP Pulse Ox 11/08/19 14:56 36.5 C 60 17 116/66 97 11/08/19 11:21 37.0 C 65 16 122/70 95 11/08/19 08:15 37.1 C 66 15 130/84 95 11/08/19 07:39 59 L Diagnostic Findings MR brain wo con IMPRESSION: 1. Acute infarct of the right frontal lobe chambers radiata and right lentiform nucleus measures up to 2.3 cm in greatest dimension. No acute intracranial hemorrhage or midline shift. 2. There is loss of the normal right internal carotid artery flow void seen within the distal cervical segment, petrous and cavernous segments. When correlated with recent CTA this correlates with long segment high-grade stenosis. 3. Multiple remote lacunar infarction of the right MCA territory. CT head/brain wo con Impression: Subacute/acute right periventricular infarcts similar compared to the patient's prior MRI study. No evidence for acute intracranial hemorrhage or midline shift. PG Care Time/CCT Total # of Minutes Spent Total Time Spent with Patient: Total time spent is greater than 50% in coordination of care (as documented) at patient's floor/unit and/or counseling patient: Coding Level of Care Code 72889 Subseq Hosp Care Lvl 2 Diagnoses CVA (cerebral vascular accident) I63.511 CVA mechanism: occlusion Laterality of affected vessel: right Precerebral and cerebral artery: middle cerebral artery Carotid artery stenosis I65.21 Laterality: right Vertebral artery stenosis I65.02 Laterality: left Stenosis of right middle cerebral artery I66.01 Hypertension I10 Hypertension type: essential hypertension Hypercholesterolemia E78.00 Chronic kidney disease, stage III (moderate) N18.3 Hypothyroidism E03.9 Hypothyroidism type: unspecified Chronic gout M1A.9XX0 Gout etiology: unspecified cause Gout site: unspecified site Presence of tophus: without tophus DVT prophylaxis Z29.9 (1) Hypothyroidism Hypothyroidism type: unspecified Qualified Code(s): E03.9 - Hypothyroidism, unspecified (2) Chronic gout Gout etiology: unspecified cause Gout site: unspecified site Presence of tophus: without tophus Qualified Code(s): M1A.9XX0 - Chronic gout, unspecified, without tophus (tophi) (3) Hypertension Hypertension type: essential hypertension Qualified Code(s): I10 - Essential (primary) hypertension (4) CVA (cerebral vascular accident) CVA mechanism: occlusion Laterality of affected vessel: right Precerebral and cerebral artery: middle cerebral artery Qualified Code(s): I63.511 - Cerebr al infarction due to unspecified occlusion or stenosis of right middle cerebral artery (5) Carotid artery stenosis Laterality: right Qualified Code(s): I65.21 - Occlusion and stenosis of right carotid artery (6) Vertebral artery stenosis Laterality: left Qualified Code(s): I65.02 - Occlusion and stenosis of left vertebral artery
[2019-11-08] MEDS: ATORVASTATIN 40 MG TAB PO SCH (20:21)
[2019-11-08] MEDS ORDERED: STROKE PATIENT DISCHARGE STA (21:31)
[2019-11-09] MEDS: HEPARIN SOD 5,000 UNIT/0.5 ML VIAL SQ SCH (06:03)
[2019-11-09] MEDS: LEVOTHYROXINE SODIUM 75 MCG TABLET PO SCH (06:03)
[2019-11-09] MEDS: ASPIRIN 81 MG ECTAB PO SCH (07:41)
[2019-11-09] MEDS: allopurinoL 300 MG TAB PO SCH (07:42)
[2019-11-09] MEDS: CLOPIDOGREL BISULFATE 75 MG TAB PO SCH (08:14)
--- NOTE | 2019-11-09 17:42 | Communication Note ---
Date of Service: November 09, 2019 Patient's chart extensively reviewed this am. Vitals noted to be stable. Sign-out was obtained from prior attending hospitalist, Dr Elijah Lagunas. He reported that patient was accepted at [facility] in [place] by the neurology service. A bed became available and patient was transferred to [facility] before my bedside rounds this morning. Therefore, I did not personally see the patient at bedside prior to transfer/discharge. However, he appeared fit for transfer based on stable vitals, etc. Elijah Calderon MD
--- NOTE | 2019-11-09 17:45 | Discharge Summary ---
Date of Service date of admission - November 06, 2019 date of discharge - November 09, 2019 Admission HPI Per Admitting Provider Kemar Mora is a 69 year old [id number] male who presents to the ER via EMS with stroke-like symptoms that started at 10:30am this morning. History taken independently from patient and his at bedside. He noticed sudden onset vertigo, neck pain and left arm weakness. The arm weakness progressed gradually until his whole left upper extremity could not be moved. Vertigo lasted for approximately 5 minutes. During this time he felt very dizzy but did not hit his head or forever. He describes the vertigo as if he had spun around a lot and then try to walk. No headache. But did think he had a sinus problem as the event occurred with facial pain. With hindsight his has noticed the patient over the last year has been talking more quietly, writing is changed and he has had 30 pounds of unintentional weight loss. Telestroke was called prior to arrival in the ER. CT head showed subacute to old infarcts right periventricular region, no acute intracranial hemorrhage. He was given alteplase on the advice of tele-stroke and is awaiting CTA head/neck. Principal Diagnosis right MCA territory stroke s/p TPA Discharge Exam exam performed by Dr Elijah Lagunas on 11/08/19: Constitutional: WD/WN, vitals as above no acute distress Eyes: + anicteric sclerae and EOM intact bilaterally; normal pupil size ENMT: external ear and nose normal, oropharynx normal Neck: trachea midline Respiratory: normal respiratory effort, lungs clear to auscultation Cardiovascular: RRR, no murmur, no edema Gastrointestinal (Abdomen): normal bowel sounds, soft, nontender, no hepatosplenomegaly Musculoskeletal: no cyanosis or clubbing, extremities motor strength 5/5 Skin: no rashes, warm and dry Neurologic: moves all extremities and awake; not confused Speech / Cognition: normal speech Motor/Sensory: no tremor Cranial Nerves: normal facial strength (Very mild left lower facial droop) Coordination: normal [id number] test (Improved left hand dexterity from admission) Psychiatric: A+Ox3, euthymic affect Discharge Data Allergies Allergy/AdvReac Type Severity Reaction Status Date / Time mold Allergy Unknown RUNNY Verified 03/05/19 08:50 NOSE, ITCHY EYES, COUGH pollen extracts Allergy Unknown RUNNY Verified 03/05/19 08:50 NOSE, ITCHY EYES, COUGH No Known Drug Allergies AdvReac Unknown Unverified 11/06/19 12:44 Consultations Consult Belt Fixer Routine Consult Neurology Routine Consult Vascular Surgery Routine PT, OT Speech therapy Procedures Performed TPA for stroke Ordered Studies 11/06/19 12:25 CT head/brain wo con Stat Impression: 1. No acute intracranial hemorrhage. 2. 5 millimeters subacute to old infarct right paraventricular region. 3. Study is otherwise unremarkable 11/06/19 13:29 CT angio head w con Stat IMPRESSION: 1. Near occlusion and/or critical stenosis proximal aspect right middle cerebral artery. 2. There is considerable to severe narrowing of the cavernous aspect of the right internal carotid artery. 3. Scattered atherosclerotic narrowing considered mild to moderate throughout remainder of the anterior, left middle, and posterior cerebral systems. 11/06/19 13:29 CT angio neck with con Stat IMPRESSION: 1. Critical 99%/subtotal occlusion of the right internal carotid artery origin 2. No evidence of hemodynamically significant left internal carotid artery stenosis 3. 80% stenosis of the left vertebral artery at the C5-C6 level secondary to uncovertebral joint degenerative disease 11/06/19 21:04 MR brain wo con Routine IMPRESSION: 1. Acute infarct of the right frontal lobe chambers radiata and right lentiform nucleus measures up to 2.3 cm in greatest dimension. No acute intracranial hemorrhage or midline shift. 2. There is loss of the normal right internal carotid artery flow void seen within the distal cervical segment, petrous and cavernous segments. When correlated with recent CTA this correlates with long segment high-grade stenosis. 3. Multiple remote lacunar infarction of the right MCA territory. 11/07/19 13:30 CT head/brain wo con Routine Impression: Subacute/acute right periventricular infarcts similar compared to the patient's prior MRI study. No evidence for acute intracranial hemorrhage or midline shift. Echocardiogram: * EF 65% * no PFO * no thrombus * normal valve function Hospital Course (1) CVA (cerebral vascular accident): The patient's presenting symptoms included left arm weakness, neck pain and acute vertigo. He was deemed a TPA candidate after consultation with [facility]-stroke at time of ER presentation. Following TPA he was admitted to the ICU and underwent usual stroke work-up including MRI brain, CTA head/neck, echo, and neurology consultation. PT, OT, speech services were consulted as usual. Left arm weakness improved following TPA. He remained hemodynamically stable in the ICU. He had no bleeding complications. Repeat CT head 24-hours post-TPA did not show intracranial hemorrhage. MRI - confirmed right frontal lobe chambers radiata. CTA head/neck -near occlusion and/or critical 99%/subtotal occlusion of the right ICA, critical stenosis proximal aspect right MCA, considerable to severe narrowing of cavernous aspect of right ICA, 80% stenosis of left vertebral artery, and scattered atherosclerotic narrowing considered mild to moderate throughout the remainder of the anterior, left middle and posterior cerebral systems. He was continued on high-intensity statin. LDL was 40 on lipid profile. Telemetry failed to showed any a.fib or a.flutter. Patient was started on dual antiplatelet therapy with aspirin and Plavix for secondary stroke prevention. Vascular surgery was consulted due to critical carotid artery stenosis on the right side. The [facility] neurology/stroke team recommended carotid endarterectomy for this issue as soon as possible. The patient was offered carotid endarterectomy at [facility]. However, after much discussion by the patient and his , they requested transfer to tertiary care for this procedure. Hence, patient is transferring to [facility] for consideration of carotid endarterectomy and ongoing post-stroke care. (2) Carotid artery stenosis: Right-sided as described above. No evidence of hemodynamically significant left internal carotid artery stenosis. Patient requested transfer to [facility] in [place] for potential carotid endarterectomy. Dr Penny Krueger accepted the patient in transfer to [facility]; he will be admitted to the stroke unit in [place]. (3) Vertebral artery stenosis: 80% stenosis as seen on CTA neck continue statin continue aspirin and plavix (4) Stenosis of right middle cerebral artery: Dual antiplatelet therapy and statin as above in "CVA" (5) Hypertension: Usual anti-hypertensives were placed on hold during this stay for permissive HTN in the setting of his acute stroke (and BPs were largely normal off his usual BP meds). (6) Hypercholesterolemia: LDL 40 on lipid profile. Continue high-intensity statin. (7) Chronic kidney disease, stage III (moderate): Cr 1.6 on 11/07/19 (baseline 1.9 to 2) (8) Hypothyroidism: Continue levothyroxine 75 mcg PO daily Recommend TSH check at [facility] (9) Chronic gout: Continue allopurinol (10) DVT prophylaxis: Heparin 5000 units subcu q8h while here Total Time Total Time Spent Total Time Spent (In Minutes): 45 Discharge Plan Discharge Items Patient Disposition: Transfer Acute Care Hospital Reason For Visit: CVA Discharge Diagnosis: Right hemispheric ischemic stroke Right carotid artery stenosis Right middle cerebral artery stenosis Left vertebral artery stenosis Activity: As commented below Non-emergency contact: Neurologist Call non-emergency contact if: you have any medication questions and your symptoms worsen Follow-up/Referrals: Wilfredo [facility] MD [Primary Care Provider] - Diet: Heart Healthy Addtl Attending Provider Instructions: Kemar Mora is a 69 year old left hand dominant male who was admitted to [facility] from November 05 to 2019 due to left arm weakness and left facial droop. He was diagnosed with a right hemispheric ischemic stroke with critical stenosis of the origin of the right internal carotid artery plus considerable to severe narrowing of the cavernous aspect of the right internal carotid artery, as well as a near occlusion of the proximal right middle cerebral artery. He responded well to alteplase given in the ER with near resolution of his symptoms although he is left with slight difficulty in writing. Given his carotid artery disease he was reviewed by vascular surgery and patient requested that if a carotid artery endarterectomy be performed it would be done at [facility]. He will be transferred to [place] under the care of neurologist Dr Krueger. Medication list below is his admission medications, please see separate printed sheet for his inpatient medications: Pending Studies at Discharge: No Stand-Alone Forms: My [facility] Skilled Items Patient informed of condition?: Yes DNR: No Discharge Level of Care: Other Communicable Disease: No Discharge Prognosis: Stable Lines: Peripheral IV Urinary Catheter: No Medications and DC Order Prescriptions: Continued omeprazole 20 mg capsule,delayed release(DR/EC) 20 mg PO DAILY PRN (Reason: Acid Reflux) Qty: 30 RF: 0 allopurinol 300 mg tablet 300 mg PO DAILY Qty: 90 RF: 0 cholecalciferol (vitamin D3) 1,000 unit (25 mcg) tablet 1,000 units PO DAILY RF: 0 simvastatin 40 mg tablet 40 mg PO HS Qty: 90 RF: 0 levothyroxine 75 mcg tablet 75 mcg PO QAM Qty: 30 RF: 0 lisinopril-hydrochlorothiazide 10-12.5 mg tablet 1 tab PO DAILY RF: 0 diclofenac sodium 3 % Gel 1 applic TOPICAL DAILY PRN (Reason: Pain) RF: 0 triamcinolone acetonide 0.5 % Cream 1 applic TOPICAL DAILY PRN (Reason: dermatitis) RF: 0 ascorbic acid (vitamin C) [Vitamin C] 500 mg Tablet 500 mg PO DAILY RF: 0 diphenhydramine HCl [Benadryl Allergy] 25 mg Tablet 25 mg PO DAILY RF: 0 pseudoephedrine HCl 30 mg Tablet 30 mg PO QAM RF: 0 Discharge Orders: Discharge Order (Routine); Ordered 11/08/19 Ordered By: Elijah Lagunas Admission Data Admit Date/Time: 11/06/19 14:20 Attending Provider: Elijah Calderon Admit Provider: Elijah Lagunas Primary Care Provider: Wilfredo [facility] Other Providers: Elijah Lagunas ; Zacarias Raya ; Pasha Garcia ; Stanley Haynes Other Interventions: Discharge Summary Assessment (RN) Last Done: 11/09/19 08:17 DC Date/Time DO NOT enter until pt leaves facility: 11/09/19 10:27 Coding Level of Care Code D/C Day Management >30 mins Diagnoses CVA (cerebral vascular accident) I63.511 CVA mechanism: occlusion Laterality of affected vessel: right Precerebral and cerebral artery: middle cerebral artery Carotid artery stenosis I65.21 Laterality: right Vertebral artery stenosis I65.02 Laterality: left Stenosis of right middle cerebral artery I66.01 Hypertension I10 Hypertension type: essential hypertension Hypercholesterolemia E78.00 Chronic kidney disease, stage III (moderate) N18.3 Hypothyroidism E03.9 Hypothyroidism type: unspecified Chronic gout [id number] Gout site: unspecified site Gout etiology: unspecified cause Presence of tophus: without tophus DVT prophylaxis Z29.9
--- NOTE | 2019-12-01 06:11 | Coding Query ---
CODING QUERY To promote full compliance with coding requirements relating to patient care, provider participation is requested in all cases of icd 9 coder uncertainty. Please assist us with the question(s) below: Coding Question(s): There is documentation in the record and most specifically on Dr. Haynes's Consultation on 11/07/19 of, "Cerebrovascular accident (CVA) due to stenosis of carotid artery" and there is also documentation of, "right MCA territory stroke s/p TPA" as documented in the Principal Diagnosis area of the Discharge Summary as well as documentation in the record and on Discharge Summary of, "He was diagnosed with a right hemispheric ischemic stroke with critical stenosis of the origin of the right internal carotid artery plus considerable to severe narrowing of the cavernous aspect of the right internal carotid artery, as well as a near occlusion of the proximal right middle cerebral artery". Please clarify below, in your clinical opinion, regarding the CVA. ( x ) CVA due to stenosis of the right carotid artery PLUS due to occlusion/stenosis of the proximal right middle cerebral artery ( ) CVA due to stenosis of the right carotid artery ( ) CVA due to occlusion/stenosis of the proximal right middle cerebral artery ( ) CVA due to Other: Please Specify Physician's Response(s): Thank you Jessica Kang Principal Diagnosis: "that condition established after study, to be chiefly responsible for occasioning the admission of the patient to the hospital for care." Co-Existing Principal Diagnosis: "when two or more diagnoses equally meet the criteria for principal diagnosis as determined by the circumstances of admission, diagnostic work up, and/or therapy provided, and the Alphabetic Index, Tabular List, or another coding guideline does not provide sequencing direction, any one of the diagnoses may be sequenced first." "When the physician has documented what appears to be a current diagnosis in the body of the record, but has not included the diagnosis in the final diagnostic statement, the physician should be asked whether the diagnosis should be added." (Source Coding [facility] 2 QTR90. p3-4) [facility]
== END 2019-11-09 10:27 | disposition short-term general hospital (02) | DRG 61 ==
LOC: ED 12:31 → 1E 14:20 → SUATTDRO 14:20 → 1E 15:11 → 2E 11-07 18:49

== ENCOUNTER 2024-04-27 15:02 | Inpatient (IN) ==
--- OUTSIDE RECORDS SUMMARY | 2024-04-27 15:07 | External Medical Summary | Summary of Care ---
Author Name Unknown Organization [facility] Address [address] [place] [address] Phone [phone] Care Team Providers Care Production Posting Clerk Name Role Phone Katherin Ivey DO Primary Care Provider Reason for Visit * Reason Comments Medication Refill Encounter Details Date Type Department Care Team (Late st Contact Info) Description 04/01/2024 Refill Family Practice [address] [place] [phone] Katherin Ivey DO [address] [place] [address] Gout Allergies Active Allergy Reactions Criticality Noted Date Comments Entacapone 08/29/2022 Diarrhea, runny nose Pollen 02/06/2020 Nasal congestion, PND Molds & Smuts 03/08/2022 Other reaction(s): cough, itchy eyes, runny nose, RUNNY NOSE, ITCHY EYES, COUGH Pollen Extract 03/08/2022 Other reaction(s): RUNNY NOSE, ITCHY EYES, COUGH documented as of this encounter (statuses as of 04/02/2024) Medications VOLTAREN 1 % TD GELIndications:Ost eoarthritis of hip apply locally twice daily as needed. 1 Tube 1 011 Active Ferrous Sulfate (IRON) 325 (65 FE) MG TABS Take 1 Tablet by mouth in the morning. Active CPAP every night at bedtime. Active Vitamin D 25 MCG (1000 UT) Oral Tablet Take 1 Tablet by mouth in the morning. Active Tadalafil 5 MG Oral Tablet (Cialis) Take 1 Tablet by mouth in the morning. Active Lisinopril 20 MG Oral Tablet (Prinivil) Take 1 Tablet by mouth in the morning. 90 Tablet 1 4 3:00 PM EDT 024 Active Levothyroxine Sodium 75 MCG Oral Tablet (Levoxyl)Indicatio ns:Hypothyroidism TAKE 1 TABLET BY MOUTH DAILY AT LEAST 30 MINUTES PRIOR TO FIRST MEAL OF THE DAY OR OTHER MEDICATIONS 90 Tablet 3 4 6:17 PM EDT 024 2024 Active Atorvastatin Calcium 80 MG Oral Tablet (Lipitor)Indicatio ns:Dyslipidemia Take 1 Tablet by mouth in the morning. 100 Tablet 3 4 8:09 AM EST 024 Active Levocetirizine Dihydrochloride 5 MG Oral Tablet (Xyzal Allergy 24HR) Take 1 Tablet by mouth every evening. Active Desvenlafaxine Succinate ER 25 MG Oral Tablet Extended Release 24 Hour (Pristiq) Take 1 Tablet by mouth in the morning. 90 Tablet 1 024 Active Clopidogrel Bisulfate 75 MG Oral Tablet (pLAVix) TAKE ONE TABLET BY MOUTH EVERY DAY 90 Tablet 2 4 9:01 AM EST 024 2024 Active Vivitrol 380 MG Intramuscular Suspension Reconstituted (Naltrexone depot) Inject 380mg intramuscularly every 28 days 1 Each 5 4 9:16 AM EDT Active Additional Information Patient taking differently: Inject 380mg intramuscularly every 28 days- HAS NOT STARTED, Reported on 02/19/2024 Naltrexone HCl 50 MG Oral Tablet (Revia) Take 1 Tablet by mouth in the morning. Active tiZANidine HCl 2 MG Oral Tablet (Zanaflex)Indicati ons:Left spastic hemiparesis (HCC) Take 1 tablet in AM and 2 tablet at bedtime. 270 Tablet 3 024 Active Carbidopa-Levodopa 25-100 MG Oral Tablet (Sinemet)Indicatio ns:Parkinson's disease without dyskinesia or fluctuating manifestations (HCC) Take 2 tablets per mouth three times a day at [id number] 180 Tablet 3 10/22/2 024 Active Euflexxa 20 MG/2ML Intra-articular Solution Prefilled Syringe (Sodium Hyaluronate (Viscosup)) Inject 20 mg (1 syringe) intra-articular to left knee every 7 days for 3 weeks 6 mL 024 Active Allopurinol 300 MG Oral Tablet (Zyloprim)Indicati ons:Gout TAKE ONE TABLET BY MOUTH EVERY DAY 100 Tablet 024 Active Allopurinol 300 MG Oral Tablet (Zyloprim)Indicati ons:Gout TAKE ONE TABLET BY MOUTH EVERY DAY 100 Tablet 3 4 11:10 AM EDT 023 2023 Disconti nued(Ref ill) documented as of this encounter (statuses as of 04/02/2024) Active Problems Problem Noted Date Diagnosed Date Hemiparesis affecting left s matthieu as late effect of cerebrovascular accident (CVA) 12/27/2022 Ventral hernia without obstruction or gangrene 0 12/19/2022 Left spastic hemiparesis 06/26/2022 Hypertensive chronic kidney disease with stage 1 through stage 4 chronic kidney disease, or unspecified chronic kidney disease 06/26/2022 Pure hypercholesterolemia, unspecified 3 Chronic kidney disease, stage 3b 04/10/2022 Overview: Per CKD protocol Major depressive disorder, single episode, mild 12/05/2021 Gouty arthropathy 12/05/2021 Parkinson's disease 12/05/2021 Depressive disorder 02/06/2020 WENDY (generalized anxiety disorder) 02/06/2020 ICAO (internal carotid artery occlusion), right 11/09/2019 Gout 12/08/2011 Benign neoplasm of colon 03/17/2009 Overview (03/19/2009): adenomatous/repeat colonoscopy in 5 yrs Pain in joint involving lower leg 02/28/2002 Overview (09/15/2008): miniscus tear Rt Knee Hypothyroidism BPH without obstruction/lower urinary tract symp toms Overview (09/15/2008): turp 02/2008 Osteoarthritis of hip Overview (09/15/2008): rt leg total hip replacement Diverticulitis of colon Other affections of shoulder region, not elsewhere classified Overview (09/15/2008): rorator cuff left Dyslipidemia HTN, goal below 140/90 Obstructive sleep apnea syndrome documented as of this encounter (statuses as of 04/02/2024) Resolved Problems Problem Noted Date Diagnosed Date Resolved Date Stage 3 chronic kidney disease 06/26/2022 07/12/2022 Acute right MCA stroke 11/09/201906/26 Kidney disease, chronic, sta ge III (GFR 30-59 ml/min) 04/02/2013 04/13/2022 Overview: Per CKD protocol HTN, goal below 140/90 12/20 documented as of this encounter (statuses as of 04/02/2024) Immunizations Name Administration Dates Next Due COVID-19 mRNA, LNP-s, No Pre serve, 2-Dose Series (Moderna) 06/29/2020,05/26/2020 COVID-19, MRNA-LNP, PF, 30 M CG/0.3 mL, 12 YRS AND ABOVE, IM (PFIZER-Comirnaty) 03/16/2023 COVID-19, mRNA, LNP-s, PF, B ooster, 100mcg/0.5mg (Moderna) 11/16/2021,02/28/2021 Covid-19, Mrna, Lnp-s, Pf, B ivalent, 30 Mcg, IM, 12 yrs and above (Pfizer) 04/18/2022 H1N1 2009 Influenza, IM 03/03/2009 HepA Inact/HepB Recomb>=18yrs old 04/03/2023,06/2022 Pneumococcal Conjugate Vacc, 13 Valent (Prevnar) 03/26/2019 Pneumococcal Polysaccharide PPV23 (Pneumovax) 01/17/2022 RSV Vac., Bivalent, Perfusio n F, Pf,0.5 Ml (Abrysvo) 08/10/2023 Season Influenza, Quad, PF, Adjuvanted, 65+ Yrs, IM (FLUAD) 02/02/2020 Seasonal Influenza Vac., MDV , IM, 0.5 mL (Fluzone) 02/13/2013,02/09/2012,02/11/2011,02/08,01/12/2009 Seasonal Influenza Virus Vac cine, Unspecified Formulation 02/10/2020 Seasonal Influenza, High Dos e, Trivalent, PF, IM (Fluzone HD) 02/20/2024,02/17/2019,03/15/2017,02/22 Seasonal Influenza, Quadriva lent Hd (Fluzone Hd) 02/07/2023,01/11/2022 Seasonal Influenza, Quadriva lent Hd, 65+ Yrs 02/18/2021 TDAP (age 10 and older)(Boostrix) 09/06/2020 TDAP, Age 7 and older, IM (Adacel) 09/15/2008 Varicella Zoster Vaccine (Adult) 03/30/2014 Zoster Vaccine Recombinant (Shingrix) 09/15/2020 ,04/07/2020 documented as of this encounter Social History Tobacco Use Types Packs/Day Years Used Date Smoking Tobacco: Former Cigarettes Q uit: 03/06/1986 Passive Smoke Exposure: Past Smokeless Tobacco: Never Alcohol Use Standard Drinks/Week Comments Yes 0 (1 standard drink = 0.6 oz pure alcohol) 750 ml of bourbon and a 6-pack of 12 oz beers weekl PHQ-2 Answer Date Recorded PHQ Adult Total Score 1 03/10/2024 Hunger Vital Sign Answer Date Recorded Within the past 12 months, y ou worried that your food would run out before you got the money to buy more. Never true 01/28/20 24 Within the past 12 months, t he food you bought just didn't last and you didn't have money to get more. Never true 01/28/2024 Childcare Answer Date Recorded Do you feel overwhelmed with taking care of a child, family member or friend? No 01/28/2024 Does your family need help f inding childcare? (Household - for ages 0-17 years) Not on file 01/28/2024 Clothing Answer Date Recorded Have you been unable to get clothing when it was really needed? No 01/28/2024 Is your family able to get c lothes or diapers when needed? (Household - for ages 0-17 years) Not on file 01/28/2024 Personal Safety Answer Date Recorded Do you feel unsafe or have concerns for your saf ety? No 01/28/2024 Do you have concerns for you r family's safety? (Household - for ages 0-17 years) Not on file 01/28/2024 Utilities Answer Date Recorded Do you have trouble paying y our heating, water, or electric bill? No 01/28/2024 Is your family able to pay t he heat, water, or electric bill? (Household - for ages 0-17 years) Not on file 01/28/2024 Does your family have access to good internet? (Household - for ages 0-17 years) Not on file 01/28/2024 Employment Status Answer Date Recorded Are you unemployed or without regular income? No 01/28/2024 Does the household have a re gular source of income? (Household - for ages 0-17 years) Not on file 01/28/2024 Social Connections Answer Date Recorded How often do you feel lonely or isolated from th ose around you? Rarely 01/28/2024 Financial Resource Strain Answer Date R ecorded Do you have any trouble payi ng for your medications, or do you think you might in the future? No 01/28/2024 Does your family have troubl e paying for medicine? (Household - for ages 0-17 years) Not on file 01/28/2024 Transportation Needs Answer Date Record ed READ ONLY Do you have troubl e getting a ride to medical visits or work? Never True 01/28/2024 Does your family have a hard time getting a ride to doctors visits? (Household - for ages 0-17 years) Not on file 01/28/2024 Has lack of transportation k ept you from medical appointments, meetings, work, or from getting things needed for daily living? Check all that apply. No 01/28/2024 Do you (or your family) have trouble finding or paying for a ride (transportation)? (Household - for ages 0-17 years) Not on file 01/28/2024 Housing Stability Answer Date Recorded Do you currently live in a s helter or have no steady place to sleep at night? No 01/28/2024 READ ONLY Do you think you a re at risk of becoming homeless? No 01/28/2024 Does your family worry about paying for your home or becoming homeless? (Household - for ages 0-17 years) Not on file 0 01/28/2024 Are you homeless or worried that you might be in the future? No 01/28/2024 Are you (or your family) eric eless or worried that you might be in the future? (Household - for ages 0-17 years) Not on file Food Insecurity Answer Date Recorded Do you need food for this week? No 01/28/2024 Are you able to get enough f ood for your family? (Household - for ages 0-17 years) Not on file 01/28/2024 Does your family need food t his week? (Household - for ages 0-17 years) Not on file 01/28/2024 Do you always have enough fo od for your family? 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 Answer Date of Assessment Author No 11/09/2019 12:12 PM EDT Pauline Wood ch, LPN * Are you blind or do you have serious difficulty seeing, even when wearing glasses? Answer Date of Assessment Author No 11/09/2019 12:12 PM EDT Pauline Wood ch, LPN * Do you have serious difficulty walking or climbing stairs? (5 years old or older) Answer Date of Assessment Author No 11/09/2019 12:12 PM EDT Pauline Wood ch, LPN * Do you have difficulty dressing or bathing? (5 years old or older) Answer Date of Assessment Author No 11/09/2019 12:12 PM EDT Pauline Wood ch, LPN * Because of a physical, mental, or emotional condition, do you have difficulty doing errands alone such as visiting a doctors office or shopping? (15 years old or older) Answer Date of Assessment Author No 11/09/2019 12:12 PM EDT Pauline Wood ch, LPN documented as of this encounter Mental Status * Because of a physical, mental, or emotional condition, do you have serious difficulty concentrating, remembering, or making decisions? (5 years old or older) Answer Entry Date Author No 11/09/2019 12:12 PM EDT Pauline Wood ch, LPN documented in this encounter Miscellaneous Notes * Telephone Encounter - Mansi Canseco [facility] - 04/02/2024 11:18 AM EST RX authorized. Zero refills given until upcoming OV. Thank you, Mansi Canseco, PharmD Staff Pharmacist Refill Call Center [phone] 04/02/2024, 11:18 AM * Telephone Encounter - Mansi Canseco [facility] - 04/02/2024 11:18 AM EST Signed Prescriptions: Disp Refills Allopurinol 300 MG Oral Tablet (Zyloprim) 100 Ta*0 Sig: TAKE ONE TABLET BY MOUTH EVERY DAY Authorizing Provider: KATHERIN IVEY Ordering User: MANSI ACNSECO documented in this encounter Plan of Treatment Upcoming Encounters Date Type Department Care Team (Late st Contact Info) Description 04/02/2024 2:00 PM EST Imaging Vascular Lab, [facility], [address] [place] [address] 04/14/2024 9:30 AM EST Telemedicine Psychiatry Karishma Gallo [address] [place] [phone] Jocelynn Alvarado CRNP [address] [place] [phone] 05/26/2024 9:20 AM EST Office Visit Family Practice [address] [facility], [place] [place] [phone] Katherin Ivey DO [address] [place] [address] 11/17/2024 10:00 AM EDT Office Visit Neurology [facility] [address] [place] [address] Patrick Vega MD [address] [place] [address] Scheduled Procedures Name Priority Associated Diagnoses Date/Ti me COLONOSCOPY FLEXIBLE PROXIMA L DIAGNOSTIC Recall History of colonic polyps Health Maintenance Due Date Last Done Comments Hepatitis C Screening 1968 Cologuard 02/22/1996 Fecal Occult Blood Test 02/22/1996 Sigmoidoscopy 02/22/1996 AAA Screening 02/22/2016 01/06/2011, 01/06/2011 Hepatitis B Vaccine (3 of 3 - Hep B Twinrix 3-dose series) 09/02/2023 04/03/2023, 03/02/2023 Albumin/Creatinine Ratio 01/19/2024 023, 04/05/2022, 12/26/2010, Additional history exists COVID-19 Vaccine ( season) 2024 01/04/2024, 03/16/2023, 04/18/2022, Additional history exists TSH 08/06/2024 08/07/2023, 1210/2021, 07/20/2020, Additional history exists GFR 08/15/2024 02/15/2024, 12/2023, 02/15/2023, Additional history exists Adult Wellness Visit 12/10/2024 12/11/2023, 11/25/19 23 CKD HGB USE SMARTSET 10679 02/14/202502/14, 08/07/2023, 02/15/2023, Additional history exists CKD PHOS USE SMARTSET 53857 02/14/202501/28, 08/07/2023, 02/15/2023, Additional history exists Depression Monitoring 03/10/2025 03/10/2024, 024 Colonoscopy 08/28/2027 08/27/2020, 07/31, 11/09/2016, Additional history exists Colorectal Cancer Screening 08/28/2027 DTap/Tdap Vaccines (3 - Td or Tdap) 09/06/2030 09/06/2020, 09/15/2008 RETIRED - COLONOSCOPY-EVERY 5 YRS AGES 18-100 Discontinued 08/27/2020, 08/27/2020, 11/09/2016, Additional history exists Zoster Vaccines Completed 09/15/2020, 12/2019, 03/30/2014 Pneumococcal Vaccine: 65+ Years Completed 01/17/2022, 03/26/2019 Influenza Vaccine (FLU shot) Completed 02/20/2024, 02/07/2023, 01/11/2022, Additional history exists HPV (Gardasil) Vaccine Aged Out No lo nger eligible based on patient's age to complete this topic MENINGOCOCCAL (MENACTRA/MENVEO) Aged Out No longer eligible based on patient's age to complete this topic documented as of this encounter Medical Devices Implanted Type Area Angle Roll Operator Device Identifier Shelf Expiration Date Model / Serial / Lot Angioseal Vip 6 Fr - [id number] Implanted:Qty: 1 on 11/10/2019 by Ramakrishna Barrow [place] [facility] [place] Groin [employer] [id number] / / [id number] Hernia Patch Lrg/[employer] [employer] [place] W/Strp - [id number] - [id number] Implanted:Qty: 1 on 12/19/2022 by Dimitri Kaye MD at OR [facility] N/A: Abdomen CR BARD : DAVOL 01/25/2023 [id number] / [id number] / [id number] Description:umbilical hernia site documented as of this encounter Visit Diagnoses Diagnosis Gout Gout, unspecified documented in this encounter Advance Directives * Full Code (Latest Code Status on File) Date Activated Date Inactivated Comments 12/19/2022 8:57 AM 12/19/2022 4:09 PM This order r eflects the patients wishes and were consensually agreed upon. Question Answer Comments Discussion of Advance Directives occurred with: Patient * Full Code Date Activated Date Inactivated Comments 11/09/2019 2:17 PM 11/11/2019 6:07 PM This order r eflects the patients wishes and were consensually agreed upon. Question Answer Comments Discussion of Advance Directives occurred with: Patient * Full Code Date Activated Date Inactivated Comments 11/09/2019 12:08 PM 11/09/2019 2:17 PM This order reflects the patients wishes and were consensually agreed upon. Question Answer Comments Discussion of Advance Directives occurred with: Not Discussed Healthcare Agents on File Name Relationship Healthcare Agent Relationshi p Communication POA Jessi Mora Spouse Power of Torch Straightener Care Teams Production Posting Clerk Relationship Specialty Start Date End Date Katherin Ivey DO [address] [place] [address] PCP - General Family Medicine 10/15/23 documented as of this encounter
--- OUTSIDE RECORDS SUMMARY | 2024-04-27 15:07 | External Medical Summary | Continuity of Care Document ---
Author Name Unknown Organization [facility] [id number] Address [address] [place] [phone] Care Team Providers Care Sow Manager Name Role Phone Katherin Dockery Primary Care Physician [phone] [id number]): 03/31[facility]24 - 03/31/24 [facility] [address] [place] [id number] [facility] Medicine [address] [address] Encounter Diagnosis Tendinitis of left quadriceps tendon(Discharge Diagnosis) - 03/31/24 Discharge Disposition: Home or Self Care Attending Physician: YU Howell Cory D Allergies, Adverse Reactions, Alerts Substance Criticality Severity Reaction Reaction Severity Status Pollen sneezing Active Allergy Not found in Search 1 n/a Active Mold cough itchy eyes runny nose Active Entac Nausea Active 1leaf mold Assessment and Plan Extracted from: Title:Clinical Document Author:YU Howell C ory D Date:03/31/24 OUTPATIENT NOTE Name: BALDOMERO PETIT Patient Number:1 [id number] : 1950 Date of Service: 03/31/2024 Chief complaint: Left quadriceps pain, resolved HPI: This 74-year-old male presents today for evaluation of his left anterior knee. The patient states approximate 4 to 6 weeks ago he was mowing the grass and it was a bit uneven. He denies any specific injury or stepping in a hole. After mowing, he had anterior pain above his patella. He points to the transitional area between the muscle and tendon. He states it was mild at first and became more severe. He was unable to walk for a few days. He became concerned and called for an appointment. Over the following 2 weeks, his symptoms improved and finally resolved. He Today's appointment for examination and reassurance. It has not recurred. He is unsure of any specific injury. He did not have any pain in the patella, patellar tendon, or sides of his knee. He states it was only over the area of the quadriceps tendon. He has been ambulatory since. No additional complaints. Physical exam General: Well-developed, well-nourished, elderly male, in no acute distress. Sitting in a chair. Alert and oriented. Skin: Warm dry with good turgor. No rashes. No intra-articular effusion. No soft tissue edema. Musculoskeletal: The patient has full terminal extension of his left knee. Flexion to greater than 110 degrees. Strength is 5/5 with good quad tone. He is able to perform a straight leg raise. He has no discomfort with palpation over the patellar tendon, patella, quadriceps tendon, or quadriceps muscle belly. No pain over the medial or lateral aspect of his knee. He has stable collateral ligaments. Ambulating today with a normal gait. Neurologic: Gross sensation is intact across the left leg by soft touch. Impression: Left quadriceps tendinitis, resolved Plan: The patient was educated regarding today's findings. Conservative care measures were discussed. He was reassured that I do not find any defect in the quadriceps tendon or muscle belly. I cannot recreate his previous pain. He is ambulating without difficulty. He will watch it for now and let me know if it recurs. He was encouraged to remain fit. He will be taking a trip to [place] and hiking [place] next [place]. I suggest to use trekking poles for balance assistance. Call with any other concerns. This dictation has been completed using NewsPin text voice recognition software. Grammatical errors, omissions, insertions, and misspellings may be present due to the limitations of the software. Immunizations Given and Recorded Vaccine Date Status Refusal Reason influenza virus vaccine, inactivated 02/18/21 Give n influenza virus vaccine, inactivated 02/17/19 Give n influenza virus vaccine, inactivated 03/15/17 Give n influenza virus vaccine, inactivated 02/23/16 Give n zoster vaccine, inactivated 09/15/20 Recorded zoster vaccine, inactivated 04/07/20 Recorded SARS-CoV-2 (COVID-19) mRNA-1273 vaccine 05/25/20 R ecorded pneumococcal 13-valent vaccine 03/26/19 Given zoster vaccine live 1 03/30/14 Given 1Result Comment: Reconstituted with [employer] Lot [id number] Medications allopurinol 300 mg oral tablet Start: 03/01/22 2:35:00 PM EDT, See Instructions, Disp# 30 tab, Refills: 3, TAKE ONE TABLET BY MOUTHEVERY DAY, Pharmacy: [facility] Start Date: 03/01/22 Status: Ordered Benadryl 25 mg oral capsule Start: 11/13/19 2:31:00 PM EDT Start Date: 11/13/19 Status: Ordered clopidogrel 75 mg oral tablet Start: 06/19/22 12:05:00 PM EST, See Instructions, Disp# 90 tab, Refills: 2, TAKE ONE TABLET BY MOUTH EVERY DAY, Pharmacy: [facility] Start Date: 06/19/22 Status: Ordered Euflexxa 10 mg/mL intra-articular solution Start: 12/25/22 1:34:00 PM EDT, 20 mg =, intra-articular, q7days, Disp# 6 mL, Refills: 0, 3 syringesfor L knee. Please ship to physician's office: [email or web address]. [place]. [address] [place] [phone], Note to Pharmacy: L KNEE DJD M17.12, Pharmacy: [facility] Start Date: 12/25/22 Stop Date: 01/15/23 Status: Ordered Euflexxa 10 mg/mL intra-articular solution Start: 03/17/24 3:52:00 PM EST, 20 mg =, intra-articular, q7days, Disp# 6 mL, Refills: 0, 3 syringes for L knee. Please ship to physician's office: [email or web address]. [place]. [address] [place] [phone],Note to Pharmacy: L KNEE DJD M17.12, Pharmacy: [facility] Start Date: 03/17/24 Stop Date: 04/07/24 Status: Ordered levothyroxine 75 mcg (0.075 mg) oral tablet Start: 06/19/22 9:42:00 AM EST, See Instructions, Disp# 90 tab, Refills: 0, TAKE ONE TABLET BY MOUTHDAILYAT LEAST 30 MINUTES PRIOR TO FIRST MEAL OF THE DAY OR OTHER MEDICATIONS, Pharmacy: [facility] Start Date: 06/19/22 Status: Ordered lisinopril 20 mg oral tablet Start: 01/27/20 3:44:00 PM EDT, 1 tab, PO, Daily, Disp# 30 tab, other Start Date: 01/27/20 Status: Ordered omeprazole 20 mg oral delayed release capsule Start: 06/25/19 4:21:00 PM EST, 1 cap, PO, Daily, Disp# 100 cap, Refills: 3, Pharmacy: [facility] Start Date: 06/25/19 Status: Ordered pseudoephedrine 30 mg oral tablet Start: 10/06/21 3:34:00 PM EDT, See Instructions, 30 mg 1 tab PO qAM PRN Start Date: 10/06/21 Status: Ordered simvastatin 80 mg oral tablet Start: 12/16/21 4:30:00 PM EDT, See Instructions, Disp# 100 tab, Refills: 3, TAKE ONE TABLET BY MOUTH EVERY DAY, [facility] Start Date: 12/16/21 Status: Ordered Sinemet 25 mg-100 mg oral tablet Start: 04/26/21 2:18:00 PM EST, 1 tab, PO, tid, Disp# 270 tab, Refills: 1, Pharmacy: [facility] Start Date: 04/26/21 Stop Date: 10/23/21 Status: Ordered triamcinolone 0.025% topical cream Start: 05/15/17 11:45:00 AM EST, 1 appl, topical, bid, Disp# 15 g, Refills: 3, Pharmacy: [address] Start Date: 05/15/17 Status: Ordered triamcinolone 0.025% topical cream Start: 10/27/20 10:17:00 AM EDT, 1 appl, topical, bid, Disp# 15 g, Refills: 1, apply to facial dermatitis until clear, Pharmacy: [address] Start Date: 10/27/20 Status: Ordered Vitamin D3 Start: 05/30/21 2:08:00 PM EST, 1,000 IU Start Date: 05/30/21 Status: Ordered Voltaren 1% topical gel Start: 02/26/18 9:53:09 AM EDT, 2 g =, topical, qid, Disp# 100 g, Refills: 3, not to exceed 16 grams/day/single joint of lower extremities, [facility] Start Date: 02/26/18 Status: Ordered Mental Status 03/31/24 Barriers to Learning one year None evide nt Mandatory Health Literacy Documentation Yes Health Literacy Communication Barriers N ever Primary Language Eritrean Problem List Condition Confirmation Course Effective Dates Status H ealth Status Informant Arthritis Confirmed Active Patellofemoral arthritis of left knee Confirmed Active S/P total knee replacement Confirmed Active Bronchitis Confirmed Active Stroke Confirmed Active Degenerative arthritis of thumb Confirmed Active Depression Confirmed Active Gout 1 Confirmed Active H/O erectile dysfunction Confirmed Active H/O: skin disorder Confirmed Active Recent cerebrovascular accident (CVA) Confirmed Active Status post right knee replacement Confirmed Active Hypertensive disorder Confirmed Active Hypothyroid Confirmed 10/21/12 Active Elevated glucose Confirmed Active Influenza Confirmed Active Left lumbar radiculopathy Confirmed Active Cervicalgia of vhstefsf-ldztige-sctv l region Confirmed Active Left knee DJD Confirmed Active Primary osteoarthritis of right knee Confirmed Active Prophylactic antibiotic therapy 2 Confirmed Active Seasonal allergies Confirmed Active Sleep apnea Confirmed Active Spinal stenosis Confirmed Active Lumbar spinal stenosis Confirmed Active Cervical spondylolysis Confirmed Active Knee MCL sprain Confirmed Active Weight disorder Confirmed Active 1Hx of gout 2bilateral total hip replacement Diagnosis Diagnosis Type Effective Dates Health Status Clinical Service Informant Tendinitis of left quadriceps tendon Discharge Diagnosis 03/31/24 Procedures Procedure Date Related Diagnosis Body Site Status Shave biopsy 03/20/22 Completed Electrodesiccation with curettage 1 03/02/22 Completed Endoscopy of upper gastroint estinal tract 2 09/29/21 Completed Colonoscopy 3 08/27/20 Completed Upper GI endoscopy 4 08/27/20 Comp leted Right knee arthroscopy 11/07/17 Co mpleted Colonoscopy 5 11/09/16 Completed renal ultrasound 6 10/09/16 Comple carson Left shoulder rotator cuff repair Completed THR - Total hip replacement 7 Completed Tonsillectomy Completed 1left calf 2The examined esophagus was normal. The gastroesophageal flap valve was visualized endoscopically and classified as Hill Grade l. There were a few diminutive 1-4 mm polyps in the body of the stomah. A few diminutive erosions wereseen in the antrum. Otherwise, the entire examined stomach was normal. Biopsies were taken with a cold forceps for histology in a gastric mapping protocol. The examined duodenum was normal. 3IMPRESSION: 1) Diverticulosis in the sigmoid colon 2) Two 4-5mm polyps in the cecum, removed with a cold snare. Resected and retrieved. 3) Hemorrhoids Repeat exam in 7 years 4IMPRESSION: 1) There was mild edema of the mucose at the GE junction, without erosions 2) The esophagus was otherwise normal. Hill class 2. 3) A few nodular erosions were seen in the antrum. Otherwise, the entire examined stomach was normal. Biopsies were taken with a cold forceps for histology. 4) The examined duodenum was normal. Biopsies were taken with a cold forceps for histology. 5- Diverticulosis in the sigmoid colon and in the descending colon. - One 1mm polyp in the ascending colon, removed with a cold biopsy forceps. Resected and retreived. - The examination was otherwise normal. 61. Mild/moderate bilateral cortical renal scarring/lobulation. 2. No hydronephrosis. 3. Enlarged prostate. 4. hepatic steatosis. 7B/L Social History Social History Type Response Smoking Status Never smoked cigaret mu Sex Male Sex Representation Male (finding) Outpatient Note * YU Howell, Dom D: PERFORM Event Display: .Outpt Note Authored Date: [id number] OUTPATIENT NOTE Name: BALDOMERO PETIT Patient Number:1 [id number] : 1950 Date of Service: 03/31/2024 Chief complaint: Left quadriceps pain, resolved HPI: This 74-year-old male presents today for evaluation of his left anterior knee. The patient states approximate 4 to 6 weeks ago he was mowing the grass and it was a bit uneven. He denies any specific injury or stepping in a hole. After mowing, he had anterior pain above his patella. He points to the transitional area between the muscle and tendon. He states it was mild at first and became more severe. He was unable to walk for a few days. He became concerned and called for an appointment. Over the following 2 weeks, his symptoms improved and finally resolved. He Today's appointment for examination and reassurance. It has not recurred. He is unsure of any specific injury. He did not haveany pain in the patella, patellar tendon, or sides of his knee. He states it was only over the areaof the quadriceps tendon. He has been ambulatory since. No additional complaints. Physical exam General: Well-developed, well-nourished, elderly male, in no acute distress. Sitting in a chair. Alert and oriented. Skin: Warm dry with good turgor. No rashes. No intra-articular effusion. No soft tissue edema. Musculoskeletal: The patient has full terminal extension of his left knee. Flexion to greater than 110 degrees. Strength is 5/5 with good quad tone. He is able to perform a straight leg raise. He hasno discomfort with palpation over the patellar tendon, patella, quadriceps tendon, or quadriceps muscle belly. No pain over the medial or lateral aspect of his knee. He has stable collateral ligaments. Ambulating today with a normal gait. Neurologic: Gross sensation is intact across the left leg by soft touch. Impression: Left quadriceps tendinitis, resolved Plan: The patient was educated regarding today's findings. Conservative care measures were discussed. He was reassured that I do not find any defect in the quadriceps tendon or muscle belly. I cannotrecreate his previous pain. He is ambulating without difficulty. He will watch it for now and let me know if it recurs. He was encouraged to remain fit. He will be taking a trip to [place] and [place] next [place]. I suggest to use trekking poles for balance assistance. Call with any other concerns. This dictation has been completed using NewsPin text voice recognition software. Grammatical errors, omissions, insertions, and misspellings may be present due to the limitations of the software. Electronic Signature on File Electronically Reviewed/Signed by: Dom Howell PA-C Author Signature Dt/Tm:04/02/2024 11:38 AM Division of Sports Medicine Electronically Reviewed/Signed by: MD Mamadou Lomaxigner Signature Dt/Tm: 04/02/2024 01:06 PM Python Django Developer for Clinical Affairs, [facility] Mitesh Professor in Orthopaedics Glue Clamp Operator, [facility] Sports Medicine CDS Patient Care team information Care Team Personnel Name: DO Dockery Susan M Position: Referring DIRECT Member Role: Primary Care Provider Address: [address] [place] [address] [place] Care Team Related Persons Name: RAJNI PETIT
--- OUTSIDE RECORDS SUMMARY | 2024-04-27 15:08 | External Medical Summary | Summary of Care ---
Author Name Unknown Organization [facility] Address [address] [place] [address] Phone [phone] Care Team Providers Care Assembler Clip On Sunglasses Name Role Phone Katherin Dockery DO Primary Care Provider [phone] Encounter Details Date Type Department Care Team (Late st Contact Info) Description 02/28/2024 1:30 PM EDT Nurse Only Family Practice [address] [phone] College, Nurse [facility] Prac [address] [address] Arrived Allergies Active Allergy Reactions Criticality Noted Date Comments Entacapone 08/29/2022 Diarrhea, runny nose Pollen 02/06/2020 Nasal congestion, PND Molds & Smuts 03/08/2022 Other reaction(s): cough, itchy eyes, runny nose, RUNNY NOSE, ITCHY EYES, COUGH Pollen Extract 03/08/2022 Other reaction(s): RUNNY NOSE, ITCHY EYES, COUGH documented as of this encounter (statuses as of 02/28/2024) Medications Medication Sig Dispensed Refills Start Date End Date Status VOLTAREN 1 % TD GELIndications:Osteo arthritis of hip apply locally twice daily as needed. 1 Tube 1 1 Active Ferrous Sulfate (IRON) 325 (65 FE) MG TABS Take 1 Tablet by mouth in the morning. Active CPAP every night at bedtime. Active Vitamin D 25 MCG (1000 UT) Oral Tablet Take 1 Tablet by mouth in the morning. Active Allopurinol 300 MG Oral Tablet (Zyloprim)Indication s:Gout TAKE ONE TABLET BY MOUTH EVERY DAY 100 Tablet 3 3 04/09/20 24 Active Tadalafil 5 MG Oral Tablet (Cialis) Take 1 Tablet by mouth in the morning. 3 Active Lisinopril 20 MG Oral Tablet (Prinivil) Take 1 Tablet by mouth in the morning. 90 Tablet 1 4 Active Levothyroxine Sodium 75 MCG Oral Tablet (Levoxyl)Indications :Hypothyroidism TAKE 1 TABLET BY MOUTH DAILY AT LEAST 30 MINUTES PRIOR TO FIRST MEAL OF THE DAY OR OTHER MEDICATIONS 90 Tablet 3 4 08/21/19 25 Active Atorvastatin Calcium 80 MG Oral Tablet (Lipitor)Indications :Dyslipidemia Take 1 Tablet by mouth in the morning. 100 Tablet 3 4 Active Levocetirizine Dihydrochloride 5 MG Oral Tablet (Xyzal Allergy 24HR) Take 1 Tablet by mouth every evening. Active Desvenlafaxine Succinate ER 25 MG Oral Tablet Extended Release 24 Hour (Pristiq) Take 1 Tablet by mouth in the morning. 90 Tablet 1 4 Active Clopidogrel Bisulfate 75 MG Oral Tablet (pLAVix) TAKE ONE TABLET BY MOUTH EVERY DAY 90 Tablet 2 4 12/21/19 25 Active Vivitrol 380 MG Intramuscular Suspension Reconstituted (Naltrexone depot) Inject 380mg intramuscularly every 28 days 1 Each 5 4 Active Additional Information Patient taking differently: Inject 380mg intramuscularly every 28 days- HAS NOT STARTED, Reported on 02/19/2024 Naltrexone HCl 50 MG Oral Tablet (Revia) Take 1 Tablet by mouth in the morning. Active tiZANidine HCl 2 MG Oral Tablet (Zanaflex)Indication s:Left spastic hemiparesis (HCC) Take 1 tablet in AM and 2 tablet at bedtime. 270 Tablet 3 4 Active Carbidopa-Levodopa 25-100 MG Oral Tablet (Sinemet)Indications :Parkinson's disease without dyskinesia or fluctuating manifestations (HCC) Take 2 tablets per mouth three times a day at [id number] 180 Tablet 3 4 Active documented as of this encounter (statuses as of 02/28/2024) Active Problems Problem Noted Date Diagnosed Date [...] Gout 12/08/2011 Benign neoplasm of colon 03/17/2009 Overview: adenomatous/repeat colonoscopy in 5 yrs Pain in joint involving lower leg 02/28/2002 Overview: miniscus tear Rt Knee Hypothyroidism BPH without obstruction/lower urinary tract symp toms Overview: turp 02/2008 Osteoarthritis of hip Overview: rt leg total hip replacement Diverticulitis of colon Other affections of shoulder region, not elsewhere classified Overview: rorator cuff left Dyslipidemia HTN, goal below 140/90 Obstructive sleep apnea syndrome documented as of this encounter (statuses as of 02/28/2024) Resolved Problems Problem Noted Date Diagnosed Date Resolved Date Stage 3 chronic kidney disease 06/26/2022 07/12/2022 Acute right MCA stroke 11/09/201906/26 Kidney disease, chronic, sta ge III (GFR 30-59 ml/min) 04/02/2013 04/13/2022 Overview: Per CKD protocol HTN, goal below 140/90 12/20 documented as of this encounter (statuses as of 02/28/2024) Immunizations Name Administration Dates Next Due COVID-19 [...] Answer Date Recorded PHQ Adult Total Score 2 01/28/2024 Hunger Vital Sign Answer Date Recorded Within [...] Assigned at Male 12/15/2021 4:42 PM EDT Gender Identity Male 12/15/2021 4:42 PM EDT Sexual Orientation Straight 12/15/2021 4: 42 PM EDT Job Start Date Occupation Industry Not on file Not on file Not on file documented as of this encounter Functional Status Functional Status Response Date of Assess ment Are you deaf or do you have serious difficulty h earing? No 11/09/2019 Are you blind or do you have serious difficulty seeing, even when wearing glasses? No 11/09/2019 Do you have serious difficul ty walking or climbing stairs? (5 years old or older) No 11/09/2019 Do you have difficulty dress ing or bathing? (5 years old or older) No 11/09/2019 Because of a physical, menta l, or emotional condition, do you have difficulty doing errands alone such as visiting a doctor s office or shopping? (15 years old or older) No 11/09/19 20 Cognitive Status Response Date of Assessm ent Because of a physical, menta l, or emotional condition, do you have serious difficulty concentrating, remembering, or making decisions? (5 years old or older) No 11/09/2019 documented as of this encounter Nursing Notes * Payal Santillan LPN - 02/28/2024 1:17 PM EDT Patient with uri symptoms., runny nose, sore throat and cough. Wishes to be screened for covid. Thank you documented in this encounter Plan of Treatment Upcoming Encounters Date Type Department Care Team (Late st Contact Info) Description 04/14/2024 9:30 AM EST Telemedicine Psychiatry Karishma Gallo [address] [place] [phone] Jocelynn Alvarado CRNP [address] [place] [phone] 05/26/2024 9:20 AM EST Office Visit Family Practice [address] [place] [phone] Katherin Dockery DO [address] [place] [address] 11/17/2024 10:00 AM EDT Office Visit Neurology Vernell Triana [place] [address] [place] [address] Patrick Vega MD [address] [facility] [place] [id number] Pending Results Name Type Priority Associated Diagnoses Date /Time INFLUENZA A/B RSV SARS-COV2,PCR Lab Routine URI (upper respiratory infection) 02/28/2024 1:16 PM EDT Scheduled Orders Name Type Priority Associated Diagnoses Orde r Schedule INFLUENZA A/B RSV SARS-COV2,PCR Lab Routine URI (upper respiratory infection) Expected: 02/28/2024 (Approximate), Expires: 02/27/2025 Scheduled Procedures Name Priority Associated Diagnoses Date/Ti [...] 04/18/2022, Additional history exists TSH 08/06/2024 08/07/2023, 12/0 10/2021, 07/20/2020, Additional history exists GFR 08/15/2024 02/15/2024, 04/0 12/2023, 02/15/2023, Additional history exists Adult Wellness Visit 12/10/2024 12/11/2023, 11/25/19 23 Depression Monitoring 01/27/2025 01/28/2024, 024 CKD HGB USE SMARTSET 53387 02/14/202502/14, 08/07/2023, 02/15/2023, Additional history exists CKD PHOS USE SMARTSET 80987 02/14/202501/28, 08/07/2023, 02/15/2023, Additional history exists Colonoscopy 08/28/2027 08/27/2020, 07/31, 11/09/2016, Additional history [...] this encounter Medical Devices Implanted Type Area Soil Checker Device Identifier Shelf Expiration Date Model / Serial / Lot Angioseal Vip 6 Fr - [id number] Implanted:Qty: 1 on 11/10/2019 by Ramakrishna Barrow MD at [place] [facility] [place] Right: Groin [employer] [id number] / / [id number] Hernia Patch Lrg/[place]zanita W/Strp - [id number] - [id number] Implanted:Qty: 1 on 12/19/2022 by Dimitri Kaye MD at OR [facility] N/A: Abdomen CR BARD : DAVOL 01/25/2023 [id number] / [id number] / [id number] Description:umbilical hernia site documented as of this encounter Visit Diagnoses Diagnosis URI (upper respiratory infection)- Primary Acute upper respiratory infections of unspecified site documented in this encounter Advance Directives * [...] Communication POA Jessi Mora Spouse Power of Cultural Anthropology Professor Care Teams Assembler Clip On Sunglasses Relationship Specialty Start Date End Date Katherin Dockery DO [address] [place] [address] PCP - General Family Medicine 10/15/23 documented as of this encounter
--- OUTSIDE RECORDS SUMMARY | 2024-04-27 15:08 | External Medical Summary | Summary of Care ---
Author Name Unknown Organization [facility] Address [address] [place] [address] Phone [phone] Care Team Providers Care Tourist Agent Name Role Phone Katherin Dockery DO Primary Care Provider [phone] Encounter Details Date Type Department Care Team (Late st Contact Info) Description 2024 Orders Only Family Practice [address] [place] [address] [place] [phone] Katherin Dockery DO [address] [place] [address] Allergies Active Allergy Reactions Criticality Noted Date Comments Entacapone 08/29/2022 Diarrhea, runny nose Pollen 02/06/2020 Nasal congestion, PND Molds & Smuts 03/08/2022 Other reaction(s): cough, itchy eyes, runny nose, RUNNY NOSE, ITCHY EYES, COUGH Pollen Extract 03/08/2022 Other reaction(s): RUNNY NOSE, ITCHY EYES, COUGH documented as of this encounter (statuses as of 2024) Medications Medication Sig Dispensed Refills Start Date [...] per mouth three times a day at [id number] Tablet 3 4 Active documented as of this encounter (statuses as of 2024) Active Problems Problem Noted Date Diagnosed Date [...] as of this encounter (statuses as of 2024) Resolved Problems Problem Noted Date Diagnosed Date Resolved Date Stage 3 chronic kidney disease 06/26/2022 07/12/2022 Acute right MCA stroke 11/09/201906/26 Kidney disease, chronic, sta ge III (GFR 30-59 ml/min) 04/02/2013 04/13/2022 Overview: Per CKD protocol HTN, goal below 140/90 12/20 documented as of this encounter (statuses as of 2024) Immunizations Name Administration Dates Next Due COVID-19 mRNA, LNP-s, No Pre serve, 2-Dose Series (Moderna) 06/29/2020,05/26/2020 COVID-19, MRNA-LNP, 23-24, P F, 30 MCG/0.3 mL, 12 YRS AND ABOVE, IM (PFIZER-Comirnaty) [...] No 11/09/2019 documented as of this encounter Plan of Treatment Upcoming Encounters Date Type Department Care Team (Late st Contact Info) Description 04/14/2024 9:30 AM EST Telemedicine Psychiatry Karishma Gallo [address] [place] [address] Jocelynn Alvarado CRNP [address] [place] [address] 05/26/2024 9:20 AM EST Office Visit Family Practice [address] [place] [address] [address] [place] [address] Katherin Dockery DO [address] [place] [address] 11/17/2024 10:00 AM EDT Office Visit Neurology [facility] [address] [place] [address] Patrick Vega MD [address] [place] [address] Scheduled Procedures Name Priority Associated Diagnoses Date/Ti me COLONOSCOPY FLEXIBLE PROXIMA L DIAGNOSTIC Recall History of colonic polyps Health Maintenance Due Date Last Done Comments Cologuard 02/22/1996 Fecal Occult Blood Test 02/22/1996 Sigmoidoscopy 02/22/1996 AAA Screening 02/22/2016 01/06/2011, 01/06/2011 Hepatitis B Vaccine (3 of 3 - Hep B Twinrix 3-dose series) 09/02/2023 04/03/2023, 03/02/2023 Albumin/Creatinine Ratio 01/19/2024 023, 04/05/2022, 12/26/2010, Additional history exists GFR 02/06/2024 02/15/2024, 0 12/2023, 02/15/2023, Additional history exists Hepatitis C Screening 2024 Postpo joanna from 1968 (Patient Declined After Education) CKD HGB USE SMARTSET 43965 08/06/202402/14, 08/07/2023, 02/15/2023, Additional history exists CKD PHOS USE SMARTSET 02616 08/06/202401/28, 08/07/2023, 02/15/2023, Additional history exists TSH 08/06/2024 08/07/2023, 1210/2021, 07/20/2020, Additional history exists Adult Wellness Visit 12/10/2024 12/11/2023, 11/25/19 23 Depression Monitoring 01/27/2025 01/28/2024, 024 Colonoscopy 08/28/2027 08/27/2020, 3 , 11/09/2016, Additional history exists Colorectal Cancer Screening 08/28/2027 DTap/Tdap Vaccines (3 - Td or Tdap) 09/06/2030 09/06/2020, 09/15/2008 RETIRED - COLONOSCOPY-EVERY 5 YRS AGES 18-100 Discontinued 08/27/2020, 08/27/2020, 11/09/2016, Additional history exists Zoster Vaccines Completed 09/15/2020, 12/2019, 03/30/2014 Pneumococcal Vaccine: 65+ Years Completed 01/17/2022, 03/26/2019 COVID-19 Vaccine Completed 01/04/2024, , 04/18/2022, Additional history exists Influenza Vaccine (FLU shot) Completed 02/20/2024, 02/07/2023, 01/11/2022, Additional history exists HPV (Gardasil) Vaccine Aged Out No lo nger eligible based on patient's age to complete this topic MENINGOCOCCAL (MENACTRA/MENVEO) Aged Out No longer eligible based on patient's age to complete this topic documented as of this encounter Medical Devices Implanted Type Area Gas Main Fitter Helper Device Identifier Shelf Expiration Date Model / Serial / Lot Angioseal Vip 6 Fr - [id number] Implanted:Qty: 1 on 11/10/2019 by Ramakrishna Barrow MD [place] [facility] [place]: Groin [employer] [id number] / / [id number] Hernia Patch Lrg/[place] W/Strp - [id number] - [id number] Implanted:Qty: 1 on 12/19/2022 by Dimitri Kaye MD at OR [facility] N/A: Abdomen CR BARD : DAVOL 01/25/2023 [id number] / [id number] / [id number] Description:umbilical hernia site documented as of this encounter Procedures Procedure Name Priority Date/Time Associated Diagnosis Comments CHEMISTRY-OUTSIDE Routine 02/15/2024 CHEMISTRY-OUTSIDE Routine 02/15/2024 CHEMISTRY-OUTSIDE Routine 02/15/2024 documented in this encounter Results * (ABNORMAL) CHEMISTRY-OUTSIDE (02/15/2024) Not all results display below - see scan for full detail OUTSIDE LAB (SEE SCANNED REPORT) Comment:"SCAN INCLUDES" - PT H INT CREATININE OUTSIDE L AB (SEE SCANNED REPORT) EGFR OUTSIDE LA B (SEE SCANNED REPORT) POTASSIUM OUTSIDE LA B (SEE SCANNED REPORT) GLUCOSE OUTSIDE LA B (SEE SCANNED REPORT) HOURS FASTING OUTSID E LAB (SEE SCANNED REPORT) TRIGLYCERIDES-OUT SIDE LAB OUTSIDE LAB (SEE SCANNED REPORT) CHOLESTEROL-OUTSI DE LAB OUTSIDE LAB (SEE SCANNED REPORT) HDL-OUTSIDE LAB OUTS [facility]THIEU LAB (SEE SCANNED REPORT) CHOL/HDL RATIO-OUTSIDE LAB OUTSIDE LA B (SEE SCANNED REPORT) LDL (CALCULATED)-OUTS [facility] LAB OUTSIDE LAB (SEE SCANNED REPORT) LDL (DIRECT MEASURE)-OUTSIDE LAB OUTSIDE LAB (SEE SCANNED REPORT) HEMOGLOBIN, [id number] LAB OUTSIDE LAB (SEE SCANNED REPORT) PHOSPHORUS-OUTSID E LAB OUTSIDE LAB (SEE SCANNED REPORT) PTH-OUTSIDE LAB 97.1(A) 12.0 - 88.0 PG/ML OUTSIDE LAB (SEE SCANNED REPORT) MICROALBUMIN RATIO-OUTSIDE LAB OUTSIDE LA B (SEE SCANNED REPORT) PROTEIN, UA-OUTSIDE LAB OUTSIDE LAB (SEE SCANNED REPORT) HGB OUTSIDE LA B (SEE SCANNED REPORT) 02/15/2024 Dimitri Silva MD LABORATORY OUTSIDE LAB (SEE SCANNED REPORT) * (ABNORMAL) CHEMISTRY-OUTSIDE (02/15/2024) Not all results display below - see scan for full detail OUTSIDE LAB (SEE SCANNED REPORT) Comment:"SCAN INCLUDES" - RE NAL PANEL CREATININE 1.82(A) 0.6 - 1.4 MG/DL OUTSIDE LAB (SEE SCANNED REPORT) EGFR 38.98 NO RANGE OUTSIDE LA B (SEE SCANNED REPORT) POTASSIUM 4.9 3.5 - 5.1 MMOL/L OUTSIDE LAB (SEE SCANNED REPORT) GLUCOSE 97 70 - 99 MG/DL OUTSIDE LAB (SEE SCANNED REPORT) HOURS FASTING OUTSID E LAB (SEE SCANNED REPORT) TRIGLYCERIDES-OUT SIDE LAB OUTSIDE LAB (SEE SCANNED REPORT) CHOLESTEROL-OUTSI DE LAB OUTSIDE LAB (SEE SCANNED REPORT) HDL-OUTSIDE LAB OUTS [facility]THIEU LAB (SEE SCANNED REPORT) CHOL/HDL RATIO-OUTSIDE LAB OUTSIDE LA B (SEE SCANNED REPORT) LDL (CALCULATED)-OUTS [place] LAB OUTSIDE LAB (SEE SCANNED REPORT) LDL (DIRECT MEASURE)-OUTSIDE LAB OUTSIDE LAB (SEE SCANNED REPORT) HEMOGLOBIN, [id number] LAB OUTSIDE LAB (SEE SCANNED REPORT) PHOSPHORUS-OUTSID E LAB 2.7 2.5 - 4.9 MG/DL OUTSIDE LAB (SEE SCANNED REPORT) PTH-OUTSIDE LAB OUTS [facility]THIE[facility] LAB (SEE SCANNED REPORT) MICROALBUMIN RATIO-OUTSIDE LAB OUTSIDE LA B (SEE SCANNED REPORT) PROTEIN, UA-OUTSIDE LAB OUTSIDE LAB (SEE SCANNED REPORT) HGB OUTSIDE LA B (SEE SCANNED REPORT) 02/15/2024 Dimitri Silva MD LABORATORY Performing Organization Address City/[facility] Co de Phone Number OUTSIDE LAB (SEE SCANNED REPORT) * CHEMISTRY-OUTSIDE (02/15/2024) Not all results display below - see scan for full detail OUTSIDE LAB (SEE SCANNED REPORT) Comment:"SCAN INCLUDES" - CB C, PLT CREATININE OUTSIDE L AB (SEE SCANNED REPORT) EGFR OUTSIDE LA B (SEE SCANNED REPORT) POTASSIUM OUTSIDE LA B (SEE SCANNED REPORT) GLUCOSE OUTSIDE LA B (SEE SCANNED REPORT) HOURS FASTING OUTSID E LAB (SEE SCANNED REPORT) TRIGLYCERIDES-OUT SIDE LAB OUTSIDE LAB (SEE SCANNED REPORT) CHOLESTEROL-OUTSI DE LAB OUTSIDE LAB (SEE SCANNED REPORT) HDL-OUTSIDE LAB OUTS [facility]THIEU LAB (SEE SCANNED REPORT) CHOL/HDL RATIO-OUTSIDE LAB OUTSIDE LA B (SEE SCANNED REPORT) LDL (CALCULATED)-OUTS [place] LAB OUTSIDE LAB (SEE SCANNED REPORT) LDL (DIRECT MEASURE)-OUTSIDE LAB OUTSIDE LAB (SEE SCANNED REPORT) HEMOGLOBIN, H4Y-GIEGHIZ LAB OUTSIDE LAB (SEE SCANNED REPORT) PHOSPHORUS-OUTSID E LAB OUTSIDE LAB (SEE SCANNED REPORT) PTH-OUTSIDE LAB OUTS [facility] LAB (SEE SCANNED REPORT) MICROALBUMIN RATIO-OUTSIDE LAB OUTSIDE LA B (SEE SCANNED REPORT) PROTEIN, UA-OUTSIDE LAB OUTSIDE LAB (SEE SCANNED REPORT) HGB 14.2 14.0 - 18.0 G/DL OUTSIDE LAB (SEE SCANNED REPORT) 02/15/2024 Dimitri Silva MD LABORATORY Performing Organization Address City/[facility] Co de Phone Number OUTSIDE LAB (SEE SCANNED REPORT) documented in this encounter Advance Directives * [...] Communication POA Jessi Mora Spouse Power of Bologna Maker Care Teams Tourist Agent Relationship Specialty Start Date End Date Katherin Dockery DO [address] [place] [address] PCP - General Family Medicine 10/15/23 documented as of this encounter
--- OUTSIDE RECORDS SUMMARY | 2024-04-27 15:08 | External Medical Summary | Summary of Care ---
Author Name Unknown Organization [facility] Address [address] [place] [address] Phone [phone] Care Team Providers Care Podiatric Medicine Professor Name Role Phone Katherin Dockery DO Primary Care Provider Reason for Visit * Reason Onset Date Comments Follow Up Medication Administration 02/20/2024 Flu an d/or Pneumo Inj Encounter Details Date Type Department Care Team (Latest Contact Info) Description 02/20/2024 9:20 AM EDT Office Visit Family Practice [address] [place] [address] Katherin Dockery DO [address] [place] [address] Parkinson's disease without dyskinesia or fluctuating manifestations (HCC)*; Hemiparesis affecting left side as late effect of cerebrovascular accident (CVA) (HCC); Multiple falls; Alcohol abuse; Need for prophylactic vaccination and inoculation against influenza Allergies Active Allergy Reactions Criticality Noted Date Comments Entacapone 08/29/2022 Diarrhea, runny nose Pollen 02/06/2020 Nasal congestion, PND Molds & Smuts 03/08/2022 Other reaction(s): cough, itchy eyes, runny nose, RUNNY NOSE, ITCHY EYES, COUGH Pollen Extract 03/08/2022 Other reaction(s): RUNNY NOSE, ITCHY EYES, COUGH documented as of this encounter (statuses as of 02/20/2024) Medications Medication Sig Dispensed Refills Start Date [...] per mouth three times a day at [id number] 180 Tablet 3 4 Active documented as of this encounter (statuses as of 02/20/2024) Active Problems Problem Noted Date Diagnosed Date [...] as of this encounter (statuses as of 02/20/2024) Resolved Problems Problem Noted Date Diagnosed Date Resolved Date Stage 3 chronic kidney disease 06/26/2022 07/12/2022 Acute right MCA stroke 11/09/201906/26 Kidney disease, chronic, sta ge III (GFR 30-59 ml/min) 04/02/2013 04/13/2022 Overview: Per CKD protocol HTN, goal below 140/90 12/20 documented as of this encounter (statuses as of 02/20/2024) Immunizations Name Administration Dates Next Due COVID-19 [...] Passive Smoke Exposure: Past Smokeless Tobacco: Never Tobacco Cessation:Counseling Given: Yes Alcohol Use Standard Drinks/Week Comments Yes 0 [...] on file documented as of this encounter Last Filed Vital Signs Vital Sign Reading Time Taken Comments Blood Pressure 124/62 02/20/2024 9:30 AM EDT Pulse 58 02/20/2024 9:30 AM EDT Temperature 35.6 C (96 F) 02/20/2024 9:30 AM EDT Respiratory Rate 14 02/20/2024 9:30 AM EDT Oxygen Saturation 99% 02/20/2024 9:30 AM EDT Inhaled Oxygen Concentration - - Weight 89.1 kg (196 lb 6.4 oz) 02/20/2024 9:30 A M EDT Height 170.2 cm (5' 7") 02/20/2024 9:30 AM EDT Body Mass Index 30.76 02/20/2024 9:30 AM EDT documented in this encounter Functional Status Functional Status Response [...] No 11/09/2019 documented as of this encounter Patient Instructions * Patient Instructions* Reena Humphrey LPN - 02/20/2024 9:30 AM EDT ~~PATIENT INSTRUCTIONS FOR FLU SHOT~~ Possible side effects of influenza vaccine, (flu shot), are usually mild and include: 1. Soreness or redness at injection site 2. Low grade fever 3. Body aches You may use Tylenol/Acetaminophen as needed for these symptoms. LET YOUR DOCTOR KNOW IMMEDIATELY IF YOU HAVE DIFFICULTY BREATHING OR SWALLOWING, EXPERIENCE ITCHINGOF FEET OR HANDS, HAVE SWELLING OF EYES, FACE OR INSIDE OF NOSE. documented in this encounter Progress Notes * Reena Humphrey LPN - 02/20/2024 9:30 AM EDT PRE - ADMINISTRATION DOCUMENTATION Are you experiencing any cold symptoms or fever? No Have you had Guillain-[place] Syndrome (an illness that causes paralysis) within the last 6 weeks? No Have you had the flu shot in the past? YES Have you ever had a reaction to the flu shot? No Reena Humphrey LPN, 02/20/2024 9:30 AM Immunization Administration Documentation Time Out Procedure Performed: Yes Patient Identified (Ask Name/Date of ): Yes Does the patient have a fever greater than 101 degrees today? No Patient allergic to latex? No C Stock: No Immunization(s) verified: Yes, Immunization Name: Flu, VIS Sheet(s) given: Yes Verified Side and Site: Yes Verified Shot(s) with Parent(s)/Patient: Yes * Katherin Dockery DO - 02/20/2024 9:25 AM EDT SUBJECTIVE: Chief Complaint Patient presents with Follow Up Medication Administration Flu and/or Pneumo Inj HPI: Kemar Mora is a 73 year old male who presents today for regular return. Pt notes that he started on Vivitrol for alcohol abuse. He is following with [facility]. He notes he had an issue with the higher dose Vivitrol initially. He is doing ok on the lower dose. He notes that he has been cutting down on his drinking to about half. He notes his appetite is down. He has a follow-up next week. They plan to proceed with Vivitrol injection if he is tolerating things ok. He continues to follow with psychiatry here. Pt follows with Dr. Vega and did see him yesterday. He did have his carbidopa-levidopa increased. He is hoping that this makes a difference. Pt is mindful of stairs and trying to be intentional about what he is doing. Does have a resolving bruise on his side from a fall weeks ago. Tripped at theedge of his driveway and the grass. Does not want formal PT. Does a number of different programs. Completed a walking program through [facility]. Does boxing twice a week which works on balance. Hoping change in medication is helpful. PHM: Patient Active Problem List Diagnosis Hypothyroidism BPH without obstruction/lower urinary tract symptoms Osteoarthritis of hip Diverticulitis of colon Other affections of shoulder region, not elsewhere classified Pain in joint involving lower leg Dyslipidemia HTN, goal below 140/90 Benign neoplasm of colon Obstructive sleep apnea syndrome Gout ICAO (internal carotid artery occlusion), right Depressive disorder Major depressive disorder, single episode, mild (HCC) Gouty arthropathy Parkinson's disease (HCC) Chronic kidney disease, stage 3b (HCC) Left spastic hemiparesis (HCC) Hypertensive chronic kidney disease with stage 1 through stage 4 chronic kidney disease, or unspecified chronic kidney disease Pure hypercholesterolemia, unspecified Ventral hernia without obstruction or gangrene Hemiparesis affecting left side as late effect of cerebrovascular accident (CVA) (HCC) WENDY (generalized anxiety disorder) Current Outpatient Medications Medication Sig Dispense Refill VOLTAREN 1 % TD GEL apply locally twice daily as needed. 1 Tube 1 Ferrous Sulfate (IRON) 325 (65 FE) MG TABS Take 1 Tablet by mouth in the morning. CPAP every night at bedtime. Vitamin D 25 MCG (1000 UT) Oral Tablet Take 1 Tablet by mouth in the morning. Allopurinol 300 MG Oral Tablet (Zyloprim) TAKE ONE TABLET BY MOUTH EVERY DAY 100 Tablet 3 Tadalafil 5 MG Oral Tablet (Cialis) Take 1 Tablet by mouth in the morning. Lisinopril 20 MG Oral Tablet (Prinivil) Take 1 Tablet by mouth in the morning. 90 Tablet 1 Levothyroxine Sodium 75 MCG Oral Tablet (Levoxyl) TAKE 1 TABLET BY MOUTH DAILY AT LEAST 30 MINUTES PRIOR TO FIRST MEAL OF THE DAY OR OTHER MEDICATIONS 90 Tablet 3 Atorvastatin Calcium 80 MG Oral Tablet (Lipitor) Take 1 Tablet by mouth in the morning. 100 Tablet 3 Levocetirizine Dihydrochloride 5 MG Oral Tablet (Xyzal Allergy 24HR) Take 1 Tablet by mouth every evening. Desvenlafaxine Succinate ER 25 MG Oral Tablet Extended Release 24 Hour (Pristiq) Take 1 Tablet by mouth in the morning. 90 Tablet 1 Clopidogrel Bisulfate 75 MG Oral Tablet (pLAVix) TAKE ONE TABLET BY MOUTH EVERY DAY 90 Tablet 2 Naltrexone HCl 50 MG Oral Tablet (Revia) Take 1 Tablet by mouth in the morning. tiZANidine HCl 2 MG Oral Tablet (Zanaflex) Take 1 tablet in AM and 2 tablet at bedtime. 270 Tablet 3 Carbidopa-Levodopa 25-100 MG Oral Tablet (Sinemet) Take 2 tablets per mouth three times a day at [id number] 180 Tablet 3 Vivitrol 380 MG Intramuscular Suspension Reconstituted (Naltrexone depot) Inject 380mg intramuscularly every 28 days (Patient taking differently: Inject 380mg intramuscularly every 28 days- HAS NOT STARTED) 1 Each 5 No current facility-administered medications for this visit. Past Medical History: Diagnosis Date Benign neoplasm of colon 03/17/2009 adenomatous/repeat colonoscopy in 5 yrs Benign neoplasm of colon 08/14/2011 several polyps --adenomatous tissue --repeat in 5 year Depression Diverticulitis of colon Dyslipidemia, goal to be determined Fatigue Gout HTN, goal below 140/90 Hypothyroidism 04/30/1998 Hypothyroidism Leg cramping Loss of smell Loss of taste Obstructive sleep apnea syndrome Osteoarthritis of hip rt leg total hip replacement Other affections of shoulder region, not elsewhere classified rorator cuff left Pain in joint involving lower leg 02/28/2002 miniscus tear Rt Knee Steatorrhea Weight loss Past Surgical History: Procedure Laterality Date ARTHROPLASTY KNEE TOTAL Right CAROTID (INTERNAL) ARTERY CATHETHER PLACEMENT N/A 11/10/2019 CATHETER PLACEMENT INTERNAL CAROTID ARTERY performed by Ramakrishna Barrow MD at OR [facility] COLONOSCOPY THRU STOMA, W/BIOPSY 03/17/2009 adenomatous/repeat colonoscopy in 5 yrs COLONOSCOPY, DIAGNOSTIC (RECTUM) 08/14/2011 several polyps --adenomatous tissue --repeat in 5 years COLONOSCOPY, DIAGNOSTIC (RECTUM) 11/09/2016 benign polyp, diverticulosis, repeat 5 yrs/COLONOSCOPY FLEXIBLE PROXIMAL DIAGNOSTIC performed by Mely Us MD at [facility] COLONOSCOPY, DIAGNOSTIC (RECTUM) 08/27/2020 normal bx, repeat 7 yrs / COLONOSCOPY FLEXIBLE PROXIMAL DIAGNOSTIC performed by Mely Us MD at [facility] EGD, FLEXIBLE, DIAGNOSTIC 08/27/2020 intestinal metaplasia, repeat 1 yr / ESOPHAGOGASTRODUODENOSCOPY (EGD), FLEXIBLE, TRANSORAL, DIAGNOSTIC performed by Mely Us MD at [facility] EGD, FLEXIBLE, DIAGNOSTIC 09/29/2021 noraml bx / ESOPHAGOGASTRODUODENOSCOPY (EGD), FLEXIBLE, TRANSORAL, DIAGNOSTIC performed by Mely Moraes MD at [facility] INJECT DX/THER SUBSTANCE INTERLAMINAR LUMBAR/SACRAL W IMAGE GUIDE 11/06/2016 INJECTION SPINE LUMBAR OR SACRAL performed by [facility] Wolfgang, DO at OR [facility] INJECT DX/THER SUBSTANCE INTERLAMINAR LUMBAR/SACRAL W IMAGE GUIDE 04/14/2019 INJECTION SPINE LUMBAR OR SACRAL performed by Mcintosh Chang Goss, DO at OR [facility] INJECTION LUMBAR/SACRAL 03/17/2015 INJECTION SPINE LUMBAR OR SACRAL performed by Mcintosh Chang Goss, DO at [facility] INJECTION LUMBAR/SACRAL 01/27/2016 INJECTION SPINE LUMBAR OR SACRAL performed by [facility] Wolfgang, DO at OR [facility] L-/S-SPINE PARAVERTEBRAL FACET INJ,1 LEVEL 08/05/2018 L-/S-SPINE PARAVERTEBRAL FACET INJ, 1 LEVEL performed by [facility] Wolfgang, DO at OR [facility] L-/S-SPINE PARAVERTEBRAL FACET INJ,1 LEVEL 10/30/2019 L-/S-SPINE PARAVERTEBRAL FACET INJ, 1 LEVEL performed by Patrice Goss, DO at OR [facility] L-/S-SPINE PARAVERTEBRL FACET INJ,2 LEVELS 01/29/2015 L-/S-SPINE PARAVERTEBRAL FACET INJ, 2 LEVELS performed by Patrice Chang Goss, DO at OR [facility] L-/S-SPINE PARAVERTEBRL FACET INJ,2 LEVELS 10/30/2019 L-/S-SPINE PARAVERTEBRAL FACET INJ, 2 LEVELS performed by Patrice Zacarias Goss, DO at OR [facility] REMOVAL OF PROSTATE (TURP) 01/2008 Prostatectomy, TURP REPAIR RUPTURED ROTATOR CUFF, ACUTE Rotator cuff repair RPR AA HERNIA 1ST < 3 CM REDUCIBLE N/A 12/19/2022 EPIGASTRIC/UMBILICAL HERNIA REPAIR INITIAL < 3 CM REDUCIBLE performed by Dimitri Kaye MD at OR [facility] RPR AA HERNIA 1ST < 3 CM REDUCIBLE N/A 12/19/2022 INCISIONAL/VENTRAL/SPIGELIAN HERNIA REPAIR INITIAL < 3 CM REDUCIBLE performed by Dimitri Kaye MD at OR [facility] SURGICAL PROCEDURE ONLY 12/19/2022 EPIGASTRIC/UMBILICAL HERNIA REPAIR by Dr. Dimitri Kaye TOTAL HIP REPLACEMENT & PROSTHESIS 12/2007 TOTAL HIP REPLACEMENT & PROSTHESIS 02/2010 left Review of patient's allergies indicates: Allergen Reactions Entacapone Diarrhea, runny nose Hay Fever [Pollen] Nasal congestion, PND Molds & Smuts Other reaction(s): cough, itchy eyes, runny nose, RUNNY NOSE, ITCHY EYES, COUGH Pollen Extract Other reaction(s): RUNNY NOSE, ITCHY EYES, COUGH Family History Problem Relation Name Age of Onset Heart Disorder Mother murmur irregular beat Hypertension Mother Musculo-skeletal Disorder Mother scoliosis osteoporosis Hypertension Father Musculo-skeletal Disorder Father hip replacements Arthritis Father Other (Other) Father high lipids No Past Hx Brother Family Status Relation Status Mo Fa Bro Alive Social History Tobacco Use Smoking status: Former Current packs/day: 0.00 Types: Cigarettes Quit date: 03/06/1986 Years since quittin.9 Passive exposure: Past Smokeless tobacco: Never Substance Use Topics Alcohol use: Yes Comment: 750 ml of bourbon and a 6-pack of 12 oz beers weekl Vaping/E-Cigarette Use Vaping/E-Cigarette Use Never User Vaping/E-Cigarette Substances Vaping/E-Cigarette Devices REVIEW OF SYSTEMS: Review of Systems Constitutional: Negative for chills, fatigue, fever and unexpected weight change. Respiratory: Negative for cough, chest tightness, shortness of breath and wheezing. Cardiovascular: Negative for chest pain, palpitations and leg swelling. Gastrointestinal: Negative for abdominal pain, constipation, diarrhea, nausea and vomiting. Musculoskeletal: Negative for arthralgias, gait problem and joint swelling. Skin: Negative for color change, pallor and rash. OBJECTIVE: BP 124/62 (BP Site: Left Arm, BP Position: Sitting, BP Cuff Size: Regular) | Pulse 58 | Temp 35.6 C (96 F) (Tympanic) | Resp 14 | Ht 1.702 m (5' 7") | Wt 89.1 kg (196 lb 6.4 oz) | SpO2 99% | BMI 30.76 kg/m | BSA 2.05 m PHYSICAL EXAM: Physical Exam Constitutional: General: He is not in acute distress. Appearance: He is well-developed. Cardiovascular: Rate and Rhythm: Normal rate and regular rhythm. Heart sounds: Normal heart sounds. No murmur heard. No friction rub. No gallop. Pulmonary: Effort: Pulmonary effort is normal. No respiratory distress. Breath sounds: Normal breath sounds. No wheezing or rales. Abdominal: General: Bowel sounds are normal. There is no distension. Palpations: Abdomen is soft. Tenderness: There is no abdominal tenderness. There is no guarding. Musculoskeletal: General: No tenderness or deformity. Normal range of motion. Skin: General: Skin is warm and dry. Coloration: Skin is not pale. Findings: Bruising (fading on left side) present. No erythema or rash. Neurological: Mental Status: He is alert and oriented to person, place, and time. ASSESSMENT/PLAN: (G20.A1) Parkinson's disease without dyskinesia or fluctuating manifestations (HCC) (primary encounter diagnosis) (I69.354) Hemiparesis affecting left side as late effect of cerebrovascular accident (CVA) (HCC) (R29.6) Multiple falls Plan: pt feels that he is improving. He did change out of a Skechers shoe which he believes were a contributor. Continue with his boxing class. Encouraged to continue to do walking exercises he had learned. (F10.10) Alcohol abuse Plan: Pt recently started Vivitrol. Alcohol likely a contributor to falls as well. Continue f/u with [facility]. (Z23) Need for prophylactic vaccination and inoculation against influenza Plan: INFLUENZA VAC., TRIVALENT, HD, PF, 65 AND ABOVE, 0.5 ML IM (FLUZONE HD) Vaccine given. See admin record. Follow-up: 3 months Total time today including reviewing chart before the visit, pertinent labs, imaging reports, face to face time, and documentation time was 32 minutes. Katherin Dockery DO documented in this encounter Nursing Notes * Reena Humphrey LPN - 02/20/2024 9:28 AM EDT Patient here for routine follow up visit. Reports he has had some tendonitis in left forearm. documented in this encounter Plan of Treatment Upcoming Encounters Date Type Department Care Team (Late st Contact Info) Description 04/14/2024 9:30 AM EST Telemedicine Psychiatry Karishma Gallo [address] [place] [address] Jocelynn Alvarado CRNP [address] [place] [address] 05/26/2024 9:20 AM EST Office Visit Family Practice [address] [place] [address] [address] [place] [address] Katherin Dockery DO [address] [place] [address] 11/17/2024 10:00 AM EDT Office Visit Neurology [facility] [address] [place], [place] [id number] Patrick Vega MD [address] [place], [place] [id number] Scheduled Procedures Name Priority Associated Diagnoses Date/Ti [...] 04/05/2022, 12/26/2010, Additional history exists GFR 02/06/2024 08/07/2023, 01/28, 01/18/2023, Additional history exists Hepatitis C Screening 2024 Postpo joanna from 1969 (Patient Declined After Education) CKD HGB USE SMARTSET 72020 08/06/202408/06, 02/15/2023, 01/18/2023, Additional history exists CKD PHOS USE SMARTSET 42392 08/06/2024 040 12/2023, 02/15/2023, 04/05/2022 TSH 08/06/2024 08/07/2023, 1210/2021, 07/20/2020, Additional history exists Adult Wellness Visit 12/10/2024 12/11/2023, 11/25/19 Depression Monitoring 01/27/2025 01/28/2024, 024 Colonoscopy 08/28/2027 08/27/2020, 07/31, 11/09/2016, Additional [...] this encounter Medical Devices Implanted Type Area Sap Bw Consultant Device Identifier Shelf Expiration Date Model / Serial / Lot Angioseal Vip 6 Fr - [id number] Implanted:Qty: 1 on 11/10/2019 by Ramakrishna aBrrow MD at OR [facility] Right: Groin [employer] [id number] / / [id number] Hernia Patch Lrg/Kath W/Strp - [id number] - [id number] Implanted:Qty: 1 on 12/19/2022 by Dimitri Kaye MD at OR [facility] N/A: Abdomen CR BARD : DAVOL 01/25/2023 [id number] / [id number] / [id number] Description:umbilical hernia site documented as of this encounter Visit Diagnoses Diagnosis Parkinson's disease without dyskinesia or fluctuating manifestations (HCC)- Primary Hemiparesis affecting left side as late effect of cerebrovascular accident (CVA) (HCC) Multiple falls Personal history of fall Alcohol abuse Alcohol abuse, unspecified Need for prophylactic vaccination and inoculation against influenza documented in this encounter Advance Directives * [...] Name Relationship Healthcare Agent Relationshi p Communication HAYLEY Sanchezmurray Gallardovis Spouse Power of Expeditionary Fighting Vehicle Crewman Care Teams Podiatric Medicine Professor Relationship Specialty Start Date End Date Katherin Dockery DO [address] [facility] [place] [address] PCP - General Family Medicine 10/15/23 documented as of this encounter
--- OUTSIDE RECORDS SUMMARY | 2024-04-27 15:08 | External Medical Summary | Summary of Care ---
Author Name Unknown Organization [facility] Address [address] [place] [address] Phone [phone] Care Team Providers Care Spotlight Operator Name Role Phone Katherin Dockery DO Primary Care Provider [phone] Reason for Visit * Reason Onset Date Comments Test Results 02/29/202402/28; 03/03 Encounter Details Date Type Department Care Team (Late st Contact Info) Description 02/29/2024 Telephone Family Practice [address] [place] [address] [place] [phone] Katherin Dockery DO [address] [place] [address] Test Results (02/28; 03/03) Allergies Active Allergy Reactions Criticality Noted Date Comments Entacapone 08/29/2022 Diarrhea, runny nose Pollen 02/06/2020 Nasal congestion, PND Molds & Smuts 03/08/2022 Other reaction(s): cough, itchy eyes, runny nose, RUNNY NOSE, ITCHY EYES, COUGH Pollen Extract 03/08/2022 Other reaction(s): RUNNY NOSE, ITCHY EYES, COUGH documented as of this encounter (statuses as of 03/03/2024) Medications Medication Sig Dispensed Refills Start Date [...] per mouth three times a day at [id number] 180 Tablet 3 4 Active documented as of this encounter (statuses as of 03/03/2024) Active Problems Problem Noted Date Diagnosed Date [...] as of this encounter (statuses as of 03/03/2024) Resolved Problems Problem Noted Date Diagnosed Date Resolved Date Stage 3 chronic kidney disease 06/26/2022 07/12/2022 Acute right MCA stroke 11/09/201906/26 Kidney disease, chronic, sta ge III (GFR 30-59 ml/min) 04/02/2013 04/13/2022 Overview: Per CKD protocol HTN, goal below 140/90 12/20 documented as of this encounter (statuses as of 03/03/2024) Immunizations Name Administration Dates Next Due COVID-19 [...] No 11/09/2019 documented as of this encounter Miscellaneous Notes * Telephone Encounter - Reena Humphrey LPN - 03/03/2024 12:11 PM EST Call placed to patient and relayed information from Dr. Dockery. Pt acknowledged understanding. States he is feeling much better. No questions at this time. * Telephone Encounter - Reena Humphrey LPN - 02/29/2024 1:35 PM EDT Call placed to patient - no answer. Message left to return call to [phone]. * Telephone Encounter - Reena Humphrey LPN - 02/29/2024 10:18 AM EDT Call placed to patient - no answer. Message left to return call to [phone]. * Telephone Encounter - Katherin Dockery DO - 02/29/2024 9:40 AM EDT Please let pt know: His swab was negative. Likely viral illness. No changes. documented in this encounter Plan of Treatment Upcoming Encounters Date Type Department Care Team (Late st Contact Info) Description 04/14/2024 9:30 AM EST Telemedicine Psychiatry [facility] [address] [place] [address] Jocelynn Alvarado CRNP [address] [place] [address] 05/26/2024 9:20 AM EST Office Visit Family Practice [address] [place] [address] [address] [place] [address] Katherin Dockery DO [address] [place] [address] 11/17/2024 10:00 AM EDT Office Visit Neurology [facility] [address] [facility] [place] [address] Patrick Vega MD [address] [place], [place] [phone] Scheduled Procedures Name Priority Associated Diagnoses Date/Ti [...] 04/18/2022, Additional history exists TSH 08/06/2024 08/07/2023, 10/2021, 07/20/2020, Additional history exists GFR 08/15/2024 02/15/2024, 12/2023, 02/15/2023, Additional history exists Adult Wellness Visit 12/10/2024 12/11/2023, 11/25/19 23 Depression Monitoring 01/27/2025 01/28/2024, 024 CKD HGB USE SMARTSET 55549 02/14/202502/14, 08/07/2023, 02/15/2023, Additional history exists CKD PHOS USE SMARTSET 09822 02/14/202501/28, 08/07/2023, 02/15/2023, Additional history exists Colonoscopy [...] this encounter Medical Devices Implanted Type Area Building Contractor Device Identifier Shelf Expiration Date Model / Serial / Lot Angioseal Vip 6 Fr - [id number] Implanted:Qty: 1 on 11/10/2019 by Ramakrishna Barrow MD at OR [facility] Right: Groin [employer] [id number] / / [id number] Hernia Patch Lrg/Odell W/Strp - [id number] - [id number] Implanted:Qty: 1 on 12/19/2022 by Dimitri Kaye MD at OR [facility] N/A: Abdomen CR BARD : DAVOL 01/25/2023 [id number] / [id number] / [id number] Description:umbilical hernia site documented as of this encounter Advance Directives * Full Code [...] Communication POA Jessi Mora Spouse Power of Copper Plate Printer Care Teams Spotlight Operator Relationship Specialty Start Date End Date Katherin Dockery DO [address] [place] [address], [place] [address] PCP - General Family Medicine 10/15/23 documented as of this encounter
--- OUTSIDE RECORDS SUMMARY | 2024-04-27 15:08 | External Medical Summary ---
Author Name Unknown Address Unknown Organization [id number]:LABORATORY [facility] [place] - [address] [facility] [address] Laboratory Report Ordering Provider Test Date Status UCHE SANCHEZ 02/28/2024 13:16:45 Final Observation Date Value Abnormality Reference (Units ) Status SARS Coronavirus 2 02/28/2024 13:16:45 Negative N egative Final No SARS-CoV2 Coronavirus RNA detected by PCR (amplified probe).
This automated test was developed and its performance characteristics determined by [facility]. It has not been cleared or approved by the U.S. Food and Drug Administration (FDA). FDA does not require this test to go thru premarket FDA review. This test is used for clinical purposes. It should not be regarded as investigational or for research. This laboratory is certified under the Clinical Laboratory Improvement Amendments (CLIA) as qualified to perform high complexity clinical laboratory testing.

This test is a nucleic acid amplification test (NAAT), a reverse transcriptase polymerase chain reaction (RT-PCR) test, or a Centers for Disease Control-acceptable equivalent. The test is performed in a high complexity Clinical Laboratory Improvement Amendments-(CLIA) certified laboratory. The test is acceptable for SARS-CoV-2 diagnosis, surveillance, and travel within the [place] and to most countries. Please check with local testing authorities about requirements before travel.

The validation of bronchial specimens, tracheal aspirates, and sputum for this assay was developed and performance characteristics determined by [facility]. The validation of alternate specimen types has not been cleared or approved by the U.S. Food and Drug Administration (FDA). It has been determined that such clearance or approval is not necessary. Influenza virus A RNA [Prese nce] in Specimen by ANTONINA with probe detection 02/28/2024 13:16:45 Negative Negative Final No Influenza A RNA detected by PCR (amplified probe) Influenza virus B RNA [Prese nce] in Specimen by ANTONINA with probe detection 02/28/2024 13:16:45 Negative Negative Final No Influenza B RNA detected by PCR (amplified probe) Respiratory syncytial virus RNA [Identifier] in Specimen by ANTONINA with probe detection 02/28/2024 13:16:45 Negative Negative Final No Respiratory Syncytial Vir us RNA detected by PCR (amplified probe) Performing Location LABORATORY [address] Jenifer Bhardwaj. [facility] [address]
--- OUTSIDE RECORDS SUMMARY | 2024-04-27 15:08 | External Medical Summary | Summary of Care ---
Author Name Unknown Organization [facility] Address [address] [place] [address] Phone [phone] Care Team Providers Care Life Enrichment Manager Name Role Phone DannyKatherin tolentino Primary Care Provider Encounter Details Date Type Department Care Team (Late st Contact Info) Description 02/15/2024 Result Scan Unspecified Department <No scans attached> Allergies Active Allergy Reactions Criticality Noted Date [...] days- HAS NOT STARTED, Reported on 02/19/2024 documented as of this encounter (statuses as [...] MCG/0.3 mL, 12 YRS AND ABOVE, IM (PFIZER-Comirnat) 03/16/2023 COVID-19, mRNA, LNP-s, PF, B ooster, [...] Dos e, Trivalent, PF, IM (Fluzone HD) 02/17/2019,03/15/2017,02/23/2016 Seasonal Influenza, Quadriva lent Hd (Fluzone Hd) [...] No 01/28/2024 Does the household have a [facility] source of income? (Household - for ages [...] (15 years old or older) No 11/09/19 Cognitive Status Response Date of Assessm ent [...] Telemedicine Psychiatry Karishma Gallo [address] [place] [address] Jocelynn Alvarado CRNP [address] [place] [address] 05/26/2024 9:20 AM EST Office Visit Family Practice [address] [place] [address] [address] [place] [id number] Katherin Dockery DO [address] [place] [address] 11/17/2024 10:00 AM EDT Office Visit Neurology [facility] [address] [place] [address] Patrick Vega MD [address] [place], [place] [id number] Scheduled Procedures Name Priority Associated Diagnoses Date/Ti [...] 12/26/2010, Additional history exists GFR 02/06/2024 02/15/2024, 04/0 12/2023, 02/15/2023, Additional history exists Hepatitis C Screening 2024 Postpo joanna from 1968 (Patient Declined After Education) CKD HGB USE SMARTSET 96715 08/06/202402/14, 08/07/2023, 02/15/2023, Additional history exists CKD PHOS USE SMARTSET 51313 08/06/202401/28, 08/07/2023, 02/15/2023, Additional history exists TSH 08/06/2024 08/07/2023, 10/2021, 07/20/2020, Additional history exists Adult Wellness Visit [...] this encounter Medical Devices Implanted Type Area Psychology Clinician Device Identifier Shelf Expiration Date Model / Serial / Lot Angioseal Vip 6 Fr - [id number] Implanted:Qty: 1 on 11/10/2019 by Ramakrishna Barrow MD at OR [facility] [place] Right: [employer] ODALYS [id number] / / [id number] Hernia Patch Lrg/Oxford W/Strp - [id number] - [id number] Implanted:Qty: 1 on 12/19/2022 by Dimitri Kaye MD at OR [facility] N/A: Abdomen CR BARD : DAVOL 01/25/2023 [id number] / [id number] / [id number] Description:umbilical hernia site documented as of this encounter Procedures Procedure Name Priority Date/Time Associated Diagnosis Comments OUTSIDE LAB RESULTS 02/15/2024 OUTSIDE LAB RESULTS 02/15/2024 OUTSIDE LAB RESULTS 02/15/2024 documented in this encounter Results * OUTSIDE LAB RESULTS (02/15/2024) 02/15/2024 No Physician Data Unknown LABORATORY * OUTSIDE LAB RESULTS (02/15/2024) 02/15/2024 No Physician Data Unknown LABORATORY * OUTSIDE LAB RESULTS (02/15/2024) 02/15/2024 No Physician Data Unknown LABORATORY documented in this encounter Advance Directives * [...] Communication POA Jessi Mora Spouse Power of Engineering Department Chair Care Teams Life Enrichment Manager Relationship Specialty Start Date End Date Katherin Dockery DO [address] [place] [address] PCP - General Family Medicine 10/15/23 documented as of this encounter
--- NOTE | 2024-04-27 15:18 | Emergency Department Note ---
Impression & Plan Severe sepsis, Right lower lobe pneumonia, Hypoxia, Elevated troponin ED Provider Note Name: BALDOMERO PETIT Age: 74 Sex: Male Arrives Via: Ambulance Informant: Patient, EMS, nursing staff ED Provider: Brody Rene MD Chief Complaint: Illness Impression: As per impressions above Medical Decision Makin-year-old gentleman with a history of Parkinson's, CVA, dyslipidemia, hypertension, CKD amongst others arrives for evaluation of upper respiratory infection with worsening cough shortness of breath and fevers. On arrival he is tachycardic hypoxic and febrile. Septic workup initiated. Given 2 L normal saline bolus IV fluids for resuscitation. He received Tylenol prior to arrival. Troponin is somewhat elevated. Patient does not have any specific chest pain. He is having some PVCs on cardiac exercise specialist. I suspect that elevated troponin is more secondary to severe sepsis and infection. Will need further monitoring of course but at this point I do not feel that starting heparin would be indicated. By examination he is not in pulmonary edema or fulminant cardiac failure. Chest x-ray shows a right lower lobe infiltrate consistent with his findings. Given cefepime and doxycycline. Patient and agreeable to hospitalization. Sepsis resuscitation: Patient meets severe sepsis criteria. He was given 2 L normal saline bolus IV rather than 30/kg IV fluids as he has a history of renal failure and concern for fluid overload. Sepsis reevaluation: A sepsis reevaluation was completed by me at 4:45 PM on 04/27/2024. Patient is breathing comfortably. His heart rate is now 90 with a blood pressure of 138/73. Triage/Nursing Notes reviewed by Me Differential:Viral syndrome, otitis, pharyngitis, pneumonia, influenza, meningitis, urinary tract infection, sepsis, bacteremia, as well as other pathologies. Vital Signs: reviewed and remarkable for febrile, hypoxic, tachycardic Interventions: Normal Saline bolus 2 L IV, cefepime 2 g IV, doxycycline 100 mg IV Labs:ED labs Reviewed by me and remarkable for hypomagnesemia, troponin elevation Imagin view chest x-ray right lower lobe infiltrate as per my interpretation EKG:As per my interpretation. Indication sepsis. Sinus tachycardia 105 bpm with a QTc of 465. Right bundle branch block noted. PACs noted. When compared to 07/15/2020 EKG heart rate has increased. Cardiac/Tele Monitoring: Cardiac Monitoring: An Order was placed for continuous cardiac monitoring. The monitor shows a rate of 110 with a sinus tachy rhythm. [facility] and bring in for further management. Plan: Disposition:Hospitalization. Condition: Fair History of Present Illness: 74-year-old gentleman arrives for evaluation illness. Patient notes for last 2 to 3 days worsening fevers, chills, illness. Associated with cough and fatigue. Stating getting lightheaded with standing. He did have several sick contacts recently. Denies any vomiting but has had some nausea. No diarrhea. No significant abdominal pain, back pain, leg swelling, urinary symptoms, diarrhea or other concerning signs or symptoms. Was seen at urgent care where he was advised to come to the ER for further evaluation given his low oxygen and ambulance was called. While there he did have viral testing which was negative for COVID and flu. And route via EMS patient received Tylenol IV.. Past Medical History:See Below Home Medications:See Below Allergies:See Below Vitals:Blood Pressure: 138/71, Pulse 108, RR 18, T 36.9C, O2 88% on RA Physical Exam: GENERAL: Patient is unwell/ill appearing and in moderate distress. RESPIRATORY: Mild crackles bilateral lower lungs mild cough no significant respiratory distress. CARDIOVASCULAR: Tachy.No murmur appreciated. GASTROINTESTINAL: Abdomen soft, non-tender, no peritonitis. EXTREMITIES: Normal motion all extremities, no cyanosis, no edema. NEUROLOGIC: Alert and oriented. No focal neurologic deficits appreciated SKIN: No rash, no jaundice, no diaphoresis. PSYCH: Appropriate GCS: 15 ED Course: Times/Reassessments: Oxygen improved with nasal cannula O2. He is feeling bit better after IV fluids. Agreeable to hospitalization Critical Care: I have personally spent 40 minutes of critical care time in the direct management of this patient. Severe sepsis with hypoxia secondary to right lower lobe infiltrate requiring resuscitation. This was a life/limb threatening event. This 40 minutes is in excess of all separately billable procedures. Brody Rene MD Past Med/Surg History Problem List (Updated 04/27/24 @ 16:03 by Brody Rene MD) Elevated troponin (Acute) Hypoxia (Acute) Right lower lobe pneumonia (Acute) Severe sepsis (Acute) Urinary urgency Erectile dysfunction Cramps of lower extremity Urethral stricture REM behavioral disorder Spinal stenosis (Chronic) Acute diverticulitis (Acute) Acute diverticulitis (Acute) Right knee DJD Chronic kidney disease, stage III (moderate) (Chronic) Hypertension (Chronic) Vitamin D deficiency (Chronic) Hypercholesterolemia (Chronic) CVA (cerebral vascular accident) (Acute) Abnormal coordination (Acute) Vertebral artery stenosis Carotid artery stenosis Hypothyroidism Chronic gout Chronic cerebral ischemia Cerebrovascular accident (CVA) due to stenosis of carotid artery Stenosis of right middle cerebral artery Malabsorption Steatorrhea Parkinsonism Medical History (Updated 04/27/24 @ 16:03 by Brody Rene MD) History of CVA with residual deficit Surgical History S/P tonsillectomy Status post right knee replacement Status post total hip replacement, bilateral Family History Mother Heart disease Hypertension Osteoporosis Scoliosis Arthritis Father High cholesterol Brother Hypertension Grandmother (Maternal) Hypertension Arthritis Grandfather (Maternal) Stroke Myocardial infarction Emphysema, unspecified Grandfather (Paternal) Bladder cancer metastasized to bone Kidney failure Social History Smoking Status: Never smoker Age Quit Using Tobacco: 36; Second Hand Exposure: No; Do You Dip or Chew Tobacco: No; Hx Alcohol Use: Yes Alcohol type: beer, wine and hard liquor Alcohol Intake Frequency Comment: Two or 3 drinks per night. 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 [employer] Feels Safe at Home: Yes Assistive Devices: None Allergies Allergies Allergy/AdvReac Type Severity Reaction Status Date / Time mold Allergy Unknown RUNNY Verified 08/27/23 09:51 NOSE, ITCHY EYES, COUGH pollen extracts Allergy Unknown RUNNY Verified 08/27/23 09:51 NOSE, ITCHY EYES, COUGH entacapone AdvReac Unknown Diarrhea Verified 08/27/23 09:51 Home Meds Home Medications Medication Instructions Recorded Confirmed levothyroxine 75 mcg tablet 75 mcg PO QAM #30 tabs 01/20/19 04/27/24 diclofenac sodium 3 % topical gel 1 applic topical DAILY PRN Pain 11/06/19 04/27/24 triamcinolone acetonide 0.5 % 1 applic topical DAILY PRN 11/06/19 04/27/24 topical cream dermatitis clopidogrel 75 mg tablet (Plavix) 75 mg PO DAILY 12/03/19 04/27/24 pseudoephedrine HCl 30 mg tablet 30 mg PO QAM PRN nasal congestion 01/26/20 04/27/24 allopurinol 300 mg tablet 300 mg PO DAILY gout #90 tabs 09/20/20 04/27/24 carbidopa 25 mg-levodopa 100 mg 2 tab PO TID 12/19/21 04/27/24 tablet duloxetine 20 mg capsule,delayed 20 mg PO DAILY 12/19/21 04/27/24 release medical marijuana PO 09/18/22 02/20/24 desvenlafaxine succinate 25 mg 25 mg PO QAM 04/27/24 04/27/24 tablet,extended release 24 hr naltrexone microspheres 380 mg 380 mg IM DIRECTED 04/27/24 04/27/24 intramuscular suspension,extended release (Vivitrol) sodium hyaluronate (viscosup) 10 10 mg intra-articular DIRECTED 04/27/24 04/27/24 mg/mL(mw 2.4-3.6 million)intra-articular syringe (Euflexxa) tizanidine 2 mg tablet 4 mg PO HS 04/27/24 04/27/24 Previous Rx's Medication Instructions Recorded Auto Titrating CPAP #1 ea 12/03/19 cholecalciferol (vitamin D3) 50 50 mcg PO DAILY #30 caps 09/20/ mcg (2,000 unit) capsule atorvastatin 80 mg tablet 80 mg PO DAILY #90 tabs 08/14/22 lisinopril 20 mg tablet 20 mg PO DAILY #90 tabs 09/26/22 tadalafil 5 mg tablet 5 mg PO DAILY #90 tabs 11/21/23 Results & Data (ED) Vital Signs Vital Signs - 24 hr 04/27/24 15:04 04/27/24 15:15 04/27/24 15:40 Temperature 36.9 C 39.1 C H Temperature Source Oral Axillary Pulse Rate 108 H 110 H Pulse Rate [Apical] Respiratory Rate 18 Respiratory Effort / Characteristics Non-Labored Spontaneous Respiratory Depth Normal Respiratory Pattern Regular Blood Pressure 138/71 Blood Pressure [Right Arm] Blood Pressure Mean 93 Blood Pressure Mean [Right Arm] Pulse Oximetry 88 L Oxygen Delivery Method Room Air Oxygen Flow Rate Sepsis Recent Fever Within 48 Hours Yes Sepsis New/Unexplained Change in Mental Status N/A Sepsis Action Taken by Nursing No Action Required 04/27/24 16:00 04/27/24 16:15 Temperature Temperature Source Pulse Rate Pulse Rate [Apical] 94 H 99 H Respiratory Rate 22 24 Respiratory Effort / Characteristics Non-Labored Spontaneous Non-Labored Spontaneous Respiratory Depth Normal Normal Respiratory Pattern Regular Regular Blood Pressure Blood Pressure [Right Arm] 133/72 138/73 Blood Pressure Mean Blood Pressure Mean [Right Arm] 92 94 Pulse Oximetry 90 91 Oxygen Delivery Method Nasal Cannula Nasal Cannula Oxygen Flow Rate 2 2 Sepsis Recent Fever Within 48 Hours Sepsis New/Unexplained Change in Mental Status Sepsis Action Taken by Nursing Laboratory Data 04/27/24 15:15 04/27/24 15:15 Lab Results 04/27/24 Range/Units 15:15 WBC 10.24 (4.8-10.8) K/ul RBC 4.32 L (4.70-6.10) M/uL Hgb 14.1 (14.0-18.0) g/dl Hct 40.7 L (42.0-52.0) % MCV 94.2 (80.0-100.0) fL MCH 32.6 (25.0-34.0) pg MCHC 34.6 (32.0-36.0) g/dL RDW Std Deviation 46.6 H (36.4-46.3) fL RDW Coeff of Ray 13.5 (11.5-14.5) % Plt Count 172 (130-400) K/uL MPV 9.6 (9.4-12.4) fL Immature Gran % (Auto) 0.4 % Neut % (Auto) 91.3 % Lymph % (Auto) 4.0 % [place] % (Auto) 3.5 % Eos % (Auto) 0.6 % Baso % (Auto) 0.2 % Neut # (Auto) 9.35 H (1.40-6.50) K/uL Lymph # (Auto) 0.41 L (1.20-3.40) K/uL [place] # (Auto) 0.36 (0.11-0.59) K/uL Eos # (Auto) 0.06 (0.00-0.50) K/uL Baso # (Auto) 0.02 (0.00-0.20) K/uL Immature Gran # (Auto) 0.04 (0.01-0.20) K/uL Sodium 139 (136-145) mmol/L Potassium 4.3 (3.5-5.1) mmol/L Chloride 109 H (98-107) mmol/L Carbon Dioxide 21 (21-32) mmol/L Anion Gap 9 (3-11) BUN 31 H (6-23) mg/dl Creatinine 1.74 H (0.6-1.4) mg/dl Est Cr Clr Drug Dosing 41.1 ml/min eGFR 40.88 BUN/Creatinine Ratio 17.8 (10-20) Glucose 144 H (70-99(Fasting)) mg/dl Lactate 1.1 (0.4-2.0) mmol/L Calcium 9.4 (8.6-10.3) mg/dl Magnesium 1.3 L (1.7-2.4) mg/dl Total Bilirubin 1.0 (0.2-1.0) mg/dl Direct Bilirubin 0.2 (0-0.2) mg/dl AST 16 (13-39) U/L ALT 14 (7-52) U/L Alkaline Phosphatase 98 (34-104) U/L Troponin I High Sens 41.9 H (0-20) pg/ml Total Protein 7.1 (6.0-8.3) gm/dl Albumin 4.1 (3.4-5.0) gm/dl Procalcitonin 1.98 H (0-0.5) ng/ml Administered Medications Sodium Chloride (Nss) 1,000 mls @ 999 mls/hr IV .Q1H1M ROQUE Stop: 04/27/24 17:15 Last Admin: 04/27/24 15:56 Dose: 999 mls/hr Documented By: Infusion: 04/27/24 15:56 Dose: Infused Documented By: Admin: 04/27/24 15:33 Dose: 999 mls/hr Documented By: VEENA Doxycycline Hyclate 100 mg/ (Dextrose) 100 mls @ 50 mls/hr IV NOW STA Stop: 04/27/24 17:47 Last Admin: 04/27/24 16:34 Dose: 50 mls/hr Documented By: VEENA Discontinued Medications Cefepime HCl (Maxipime 2000mg) 2,000 mg in 20 mls @ 5 mls/min IV NOW STA; Protocol Stop: 04/27/24 15:51 Last Admin: 04/27/24 15:56 Dose: 5 mls/min Documented By: VEENA Magnesium Sulfate/Dextrose (Magnesium Sulfate / D5w) 1 gm in 100 mls @ 100 mls/hr IV NOW STA Stop: 04/27/24 16:57 Last Admin: 04/27/24 16:34 Dose: 100 mls/hr Documented By: VEENA Imaging Data Radiologist's Impression: Chest X-Ray 04/27/24 15:15 EXAM: Radiograph of the Chest 1 View INDICATION: Sepsis. TECHNIQUE: Frontal view of the chest. COMPARISON: 12/15/2020 FINDINGS: Lungs and pleural spaces: Patchy airspace disease present in the right lung base. No pleural effusion or pneumothorax. Heart: Shape and configuration within normal limits allowing for technique. Mediastinum: Normal contour. Bones/joints: Stable chronic deformity distal clavicles. No acute osseous abnormality. Soft tissues: No abnormality noted. No radiopaque foreign body noted. Upper abdomen: No abnormality noted. IMPRESSION: Mild right basilar atelectasis or pneumonia. ACT 112: Negative or not required by law. Electronically signed by Maria R Eli 04-27-2024 3:53 PM Discharge Plan Visit Data Chief Complaint: Fever Stated Complaint: Fever, shortness of breath ED Provider: Brody Rene Discharge Problem: Severe sepsis, Right lower lobe pneumonia, Hypoxia, Elevated troponin Forms Stand Alone Forms: My [facility] [employer] Prescriptions Prescriptions: No Action lisinopril 20 mg tablet 20 mg PO DAILY Qty: 90 3RF tadalafil 5 mg tablet 5 mg PO DAILY Qty: 90 3RF levothyroxine 75 mcg tablet 75 mcg PO QAM Qty: 30 allopurinol 300 mg tablet 300 mg PO DAILY Qty: 90 medical marijuana PO Rx Instructions: 300mg/30mL atorvastatin 80 mg tablet 80 mg PO DAILY Qty: 90 3RF clopidogrel [Plavix] 75 mg tablet 75 mg PO DAILY (DME) Auto Titrating CPAP Misc See Rx Instructions .ROUTE .MEDSUPPLY Qty: 1 0RF Rx Instructions: 5-15 cm H2O cholecalciferol (vitamin D3) 50 mcg (2,000 unit) capsule 50 mcg PO DAILY Qty: 30 0RF duloxetine 20 mg capsule,delayed release(DR/EC) 20 mg PO DAILY carbidopa-levodopa 25-100 mg tablet 2 tab PO TID diclofenac sodium 3 % Gel 1 applic TOPICAL DAILY PRN (Reason: Pain) triamcinolone acetonide 0.5 % Cream 1 applic TOPICAL DAILY PRN (Reason: dermatitis) pseudoephedrine HCl 30 mg tablet 30 mg PO QAM PRN (Reason: nasal congestion) tizanidine 2 mg tablet 4 mg PO HS Rx Instructions: PT SAYS ONLY TAKES IT AT NIGHT Vivitrol 380 mg suspension,extended rel recon 380 mg IM DIRECTED desvenlafaxine succinate 25 mg tablet extended release 24 hr 25 mg PO QAM Euflexxa 10 mg/mL(mw 2.4 -3.6 million) syringe 10 mg intra-articular DIRECTED Referrals Referrals: Katherin Dockery DO [Primary Care Provider] - Discharge Problem: Right lower lobe pneumonia Qualifiers: Pneumonia type: due to unspecified organism Qualified Code(s): J18.9 - Pneumonia, unspecified organism
[2024-04-27] MEDS: SODIUM CHLORIDE 0.9% 1,000 ML IV SCH (15:33)
[2024-04-27 15:35] LABS: Hematocrit (blood only) 40.7 % (42.0-52.0); Hemoglobin 14.1 g/dl (14.0-18.0); Mean Corpuscular Hemoglobin 32.6 pg (25.0-34.0); Mean Corpuscular Hgb Conc 34.6 g/dL (32.0-36.0); Mean Corpuscular Volume 94.2 fL (80.0-100.0); Mean Platelet Volume 9.6 fL (9.4-12.4); Platelet Count 172 K/uL (130-400); RDW Coefficient of Variation 13.5 % (11.5-14.5); RDW Standard Deviation 46.6 fL (36.4-46.3); Red Blood Count 4.32 M/uL (4.70-6.10); White Blood Count 10.24 K/ul (4.8-10.8)
[2024-04-27 15:50] LABS: Basophils # (auto) 0.02 K/uL (0.00-0.20); Basophils % (auto) 0.2 %; Eosinophils # (auto) 0.06 K/uL (0.00-0.50); Eosinophils % (auto) 0.6 %; Immature Granulocytes # (auto) 0.04 K/uL (0.01-0.20); Immature Granulocytes % (auto) 0.4 %; Lymphocytes # (auto) 0.41 K/uL (1.20-3.40); Monocytes # (auto) 0.36 K/uL (0.11-0.59); Monocytes % (auto) 3.5 %; Neutrophils # (auto) 9.35 K/uL (1.40-6.50); Neutrophils % (auto) 91.3 %
[2024-04-27 15:53] LABS: Albumin Level 4.1 gm/dl (3.4-5.0); BUN Creatinine Ratio 17.8 (10-20); Bilirubin Direct 0.2 mg/dl (0-0.2); Calcium 9.4 mg/dl (8.6-10.3); Creatinine Clr Calc Pharmacy 41.1 ml/min; Magnesium 1.3 mg/dl (1.7-2.4); Potassium 4.3 mmol/L (3.5-5.1); Total Protein 7.1 gm/dl (6.0-8.3)
--- NOTE | 2024-04-27 15:53 | XRay Report ---
EXAM: Radiograph of the Chest 1 View INDICATION: Sepsis. TECHNIQUE: Frontal view of the chest. COMPARISON: 12/15/2020 FINDINGS: Lungs and pleural spaces: Patchy airspace disease present in the right lung base. No pleural effusion or pneumothorax. Heart: Shape and configuration within normal limits allowing for technique. Mediastinum: Normal contour. Bones/joints: Stable chronic deformity distal clavicles. No acute osseous abnormality. Soft tissues: No abnormality noted. No radiopaque foreign body noted. Upper abdomen: No abnormality noted. IMPRESSION: Mild right basilar atelectasis or pneumonia. ACT 112: Negative or not required by law. Electronically signed by Maria R Eli 04-27-2024 3:53 PM
[2024-04-27] MEDS: CEFEPIME 2000MG 2,000 MG/20 ML SYR IV STA (15:56)
[2024-04-27 15:59] LABS: Troponin I High Sensitivity 41.9 pg/ml (0-20)
--- NOTE | 2024-04-27 16:26 | History & Physical Report ---
<Statement entered by Germain Lawson, DO - 04/28/24 08:07> I have seen and examined the patient and have discussed the case with the provider above. I have reviewed the advanced practitioner's documentation, and I agree with, and take responsibility for that plan of care. Patient seen and examined on the day of admission while still in the ED. Patient states that breathing seems easier with oxygen supplementation. States he just was starting with a cough over the last 24 hours or so. Lungs: Decreased breath sounds right lower lobe, no wheezes few rhonchi Reviewed pertinent data High suspicion for rhinovirus pneumonia, possible secondary bacterial pneumonia with elevated procalcitonin, however this could be elevated due to his chronic renal dysfunction Discussed plan of care with DARELL as outlined below Date of Service April 27, 2024 Assessment & Plan (1) Acute hypoxic respiratory failure: Plan: This is a 74yo M with PMH of Parkinson's disease, CVA with left spastic hemiparesis, HTN, CKD III, mood disorder, BPH, TIAGO, hypothyroidism, h/o alcohol abuse on Vivitrol and other medical problems listed below who was sent over from Urgent Care for SOB and fever and found to have severe sepsis 2/2 PNA and acute hypoxic respiratory failure. Hypoxic at 88% on room air, improved to 95% on 2L NC O2, wean as tolerated 2/2 PNA as below (2) Severe sepsis: (3) Right lower lobe pneumonia: Plan: T 39 C, HR 110 No leukocytosis, lactate WNL but procal elevated at 1.98, + enterovirus/rhinovirus on RVP CXR with patchy airspace disease present in the right lung suggestive of PNA S/p 2 L NSS fluid resuscitation in ED, cefepime and doxy No further fluids indicatated at this time Continue empiric abx with rocephin, azithromycin Follow sputum, blood cultures Mucinex BID, antitussives (4) Hypomagnesemia: Plan: Mg 1.3 in ED - replacing Repeat Mag in AM (5) Elevated troponin: Plan: HS trop 41.9 in ED in setting of illness as above, likely demand ischemia No CP or acute ST changes - sinus tachycardia at 105 bpm with PACs Has been taking decongestants at home - will hold for now Monitor on tele, trend troponin (6) Parkinson's disease: Plan: Follows with [facility] neuro Continue Carbidopa-levadopa TID (7) Alcohol use disorder: Plan: Recently started on Vivitrol monthly injections for history of alcohol abuse Still drinking 3-6 drinks daily, tending towards 6+ over the holidays Denies history of withdrawal symptoms AWSS, PRN IV ativan, MV, folic acid and thiamine supplementation (8) Hypothyroidism: Plan: Continue levothyroxine (9) Chronic kidney disease, stage III (moderate): Plan: Cr 1.72 (Baseline 1.7-2) Monitor with daily BMP (10) Hypertension: Plan: Continue lisinopril (11) History of CVA with residual deficit: Plan: Continue plavix, statin (12) TIAGO on CPAP: Plan: CPAP HS DVT Ppx: SQ heparin Code status: FULL PCP: [facility] Dispo: Admitted to PCU Patient seen in collaboration with Dr. Lawson. Please see addendum. I spent a total of 75 minutes coordinating, documenting, and providing care for this patient excluding time spent in the performance of separately billed services. History of Present Illness Chief Complaint: sent from urgent care for sepsis Primary Care Provider: Katherin Dockery DO This is a 74yo M with PMH of Parkinson's disease, CVA with left spastic hemiparesis, HTN, CKD III, mood disorder, BPH, TIAGO, hypothyroidism, h/o alcohol abuse on Vivitrol and other medical problems listed below who was sent over from Urgent Care for SOB and fever. Patient with recent exposure to sick contacts over the holidays and has since developed cough, SOB and fevers over past 2-3 days. 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 [place] fatigued by early evening and went to bed early. Patient slept in late this morning and by the time returned home from running errands, felt he looked tang and had shaking chills and fever of 101.7 F. Took him to [facility] urgent care, where he was found to be tachycardic and febrile and too weak to stand, requiring wheelchair. Was nauseated at this time and vomited x 1. Was directed to ED via ambulance for further evaluation. Patient feeling significantly improved with supplemental oxygen and IV fluids. Has occasional productive cough but denies any shortness of breath at this time. Recently started on Vivitrol monthly injections for history of alcohol abuse. Still drinking 3-6 drinks daily, tending towards 6+ over the holidays. Denies history of withdrawal symptoms. Uses CPAP to sleep at night. No falls, headache, chest pain, palpitations, wheezing, abdominal pain, dysuria, diarrhea or constipation. Did not take any home meds today. Allergies Allergy/AdvReac Type Severity Reaction Status Date / Time mold Allergy Unknown RUNNY Verified 08/27/23 09:51 NOSE, ITCHY EYES, COUGH pollen extracts Allergy Unknown RUNNY Verified 08/27/23 09:51 NOSE, ITCHY EYES, COUGH entacapone AdvReac Unknown Diarrhea Verified 08/27/23 09:51 Home Medications Medication Instructions Recorded Confirmed Type levothyroxine 75 mcg tablet 75 mcg PO QAM #30 tabs 01/20/19 04/27/24 History diclofenac sodium 3 % topical gel 1 applic topical DAILY PRN Pain 11/06/19 04/27/24 History triamcinolone acetonide 0.5 % 1 applic topical DAILY PRN 11/06/19 04/27/24 History topical cream dermatitis Auto Titrating CPAP #1 ea 12/03/19 02/20/24 Rx clopidogrel 75 mg tablet (Plavix) 75 mg PO DAILY 12/03/19 04/27/24 History pseudoephedrine HCl 30 mg tablet 30 mg PO QAM PRN nasal congestion 01/26/20 04/27/24 History allopurinol 300 mg tablet 300 mg PO DAILY gout #90 tabs 09/20/20 04/27/24 History cholecalciferol (vitamin D3) 50 50 mcg PO DAILY #30 caps 09/20/20 04/27/24 Rx mcg (2,000 unit) capsule carbidopa 25 mg-levodopa 100 mg 2 tab PO TID 12/19/21 04/27/24 History tablet atorvastatin 80 mg tablet 80 mg PO DAILY #90 tabs 08/14/22 04/27/24 Rx lisinopril 20 mg tablet 20 mg PO DAILY #90 tabs 09/26/22 04/27/24 Rx tadalafil 5 mg tablet 5 mg PO DAILY #90 tabs 11/21/23 04/27/24 Rx cholecalciferol (vitamin D3) 25 25 mcg PO DAILY 04/27/24 04/27/24 History mcg (1,000 unit) tablet desvenlafaxine succinate 25 mg 25 mg PO QAM 04/27/24 04/27/24 History tablet,extended release 24 hr diclofenac sodium 1 % topical gel 2 g topical QID 04/27/24 04/27/24 History (Voltaren Arthritis Pain) ferrous sulfate 324 mg (65 mg 324 mg PO DAILY 04/27/24 04/27/24 History iron) tablet,delayed release levocetirizine 5 mg tablet 5 mg PO DAILY 04/27/24 04/27/24 History naltrexone microspheres 380 mg 380 mg IM DIRECTED 04/27/24 04/27/24 History intramuscular suspension,extended release (Vivitrol) sodium hyaluronate (viscosup) 10 10 mg intra-articular DIRECTED 04/27/24 04/27/24 History mg/mL(mw 2.4-3.6 million)intra-articular syringe (Euflexxa) tizanidine 2 mg tablet 4 mg PO HS 04/27/24 04/27/24 History Past Med/Surg History Problem List (Updated 04/27/24 @ 20:44 by Yen Livingston PA-C) Hypomagnesemia Acute hypoxic respiratory failure Elevated troponin (Acute) Right lower lobe pneumonia (Acute) Severe sepsis (Acute) Spinal stenosis (Chronic) Acute diverticulitis (Acute) Acute diverticulitis (Acute) Right knee DJD Vertebral artery stenosis Carotid artery stenosis Chronic cerebral ischemia Cerebrovascular accident (CVA) due to stenosis of carotid artery Stenosis of right middle cerebral artery Malabsorption Steatorrhea Parkinsonism Medical History (Updated 04/27/24 @ 20:44 by Yen Livingston PA-C) TIAGO on CPAP Hypothyroidism Alcohol use disorder Parkinson's disease Urinary urgency Erectile dysfunction Chronic gout Hypercholesterolemia Vitamin D deficiency Hypertension Chronic kidney disease, stage III (moderate) History of CVA with residual deficit Surgical History S/P tonsillectomy Status post right knee replacement Status post total hip replacement, bilateral Family History Mother , age 92 of congestive heart failure Heart disease Hypertension Osteoporosis Scoliosis Arthritis Father , age 92 of complications from a perforated ulcer High cholesterol Brother Hypertension Grandmother (Maternal) Hypertension Arthritis Grandfather (Maternal) Stroke Myocardial infarction Emphysema, unspecified Grandfather (Paternal) Bladder cancer metastasized to bone Kidney failure Social History Smoking Status: Former smoker Age Quit Using Tobacco: 36; Second Hand Exposure: No; Do You Dip or Chew Tobacco: No; Hx Alcohol Use: Yes Alcohol type: beer, wine and hard liquor Alcohol Intake Frequency Comment: Two or 3 drinks per night. 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 Physical Exam Physical Exam: General Appearance: WD/WN, vitals as above, NAD, sitting up in bed, pleasant, appears acutely ill Head: normocephalic, atraumatic Eyes: normal inspection, PERRL, conjunctivae normal, anicteric sclerae ENT: external ear and nose normal, oropharynx normal Neck: normal visual inspection, trachea midline, no thyromegaly Respiratory: normal respiratory effort, crackles RLL base, no wheeze or rhonchi. No accessory muscle use Cardiovascular: regular rate, rhythm, normal peripheral pulses, no BLE edema. Vessels: no JVD Chest: normal inspection of chest Abdomen/GI: normal bowel sounds, soft, nontender, no hepatosplenomegaly Extremities/Musculoskeletal: no cyanosis or clubbing, extremities motor strength 5/5 Neurologic: PERRL, EOMI, accommodation nl, no face palsy, no dysarthria, CN's II-XI intact bilaterally and moves all extremities Psychiatric: A+Ox3, euthymic affect Skin: no rashes, normal color, warm/dry Results & Data Results & Data Vital Signs (Past 12 Hours) Vital Signs Temp Pulse Pulse Resp BP BP Pulse Ox 04/27/24 16:15 99 H 24 138/73 91 04/27/24 16:00 94 H 22 133/72 90 04/27/24 15:40 110 H 04/27/24 15:15 39.1 C H 04/27/24 15:04 36.9 C 108 H 18 138/71 88 L O2 Del Method O2 Flow Rate 04/27/24 16:15 Nasal Cannula 2 04/27/24 16:00 Nasal Cannula 2 04/27/24 15:40 04/27/24 15:15 04/27/24 15:04 Room Air Laboratory Results Short CBC 04/27/24 Range/Units 15:15 WBC 10.24 (4.8-10.8) K/ul Hgb 14.1 (14.0-18.0) g/dl Hct 40.7 L (42.0-52.0) % Plt Count 172 (130-400) K/uL BMP 04/27/24 15:15 Sodium 139 Potassium 4.3 Chloride 109 H Carbon Dioxide 21 BUN 31 H Creatinine 1.74 H Glucose 144 H Calcium 9.4 Liver Function 04/27/24 Range/Units 15:15 Total Bilirubin 1.0 (0.2-1.0) mg/dl Direct Bilirubin 0.2 (0-0.2) mg/dl AST 16 (13-39) U/L ALT 14 (7-52) U/L Alkaline Phosphatase 98 (34-104) U/L Albumin 4.1 (3.4-5.0) gm/dl Diagnostic Findings Chest X-Ray 04/27/24 15:15 EXAM: Radiograph of the Chest 1 View INDICATION: Sepsis. TECHNIQUE: Frontal view of the chest. COMPARISON: 12/15/2020 FINDINGS: Lungs and pleural spaces: Patchy airspace disease present in the right lung base. No pleural effusion or pneumothorax. Heart: Shape and configuration within normal limits allowing for technique. Mediastinum: Normal contour. Bones/joints: Stable chronic deformity distal clavicles. No acute osseous abnormality. Soft tissues: No abnormality noted. No radiopaque foreign body noted. Upper abdomen: No abnormality noted. IMPRESSION: Mild right basilar atelectasis or pneumonia. ACT 112: Negative or not required by law. Electronically signed by Maria R Eli 04-27-2024 3:53 PM (3) Right lower lobe pneumonia Pneumonia type: due to unspecified organism Qualified Code(s): J18.9 - Pneumonia, unspecified organism (10) Hypertension Hypertension type: essential hypertension Qualified Code(s): I10 - Essential (primary) hypertension
[2024-04-27] MEDS: MAGNESIUM SULFATE / D5W 1 GM/100 ML BAG IV STA (16:34)
[2024-04-27] MEDS: DOXYCYCLINE HYCLATE 100 MG in DEXTROSE 5% MINI-B 100 ML IV STA (16:34)
[2024-04-27 17:16] LABS: Adenovirus PCR Not Detected (NotDetected); Bordetella parapertussis PCR Not Detected (NotDetected); Bordetella pertussis PCR Not Detected (NotDetected); Chlamydia pneumoniae PCR Not Detected (NotDetected); Coronavirus 229E PCR Not Detected (NotDetected); Coronavirus CoV-2 (COVID19)PCR Not Detected (NotDetected); Coronavirus HKU1 PCR Not Detected (NotDetected); Coronavirus NL63 PCR Not Detected (NotDetected); Coronavirus OC43PCR Not Detected (NotDetected); Human Metapneumovirus PCR Not Detected (NotDetected); Influenza A PCR Not Detected (NotDetected); Influenza B PCR Not Detected (NotDetected); Mycoplasma pneumoniae PCR Not Detected (NotDetected); Parainfluenza Virus 1 PCR Not Detected (NotDetected); Parainfluenza Virus 2 PCR Not Detected (NotDetected); Parainfluenza Virus 3 PCR Not Detected (NotDetected); Parainfluenza Virus 4 PCR Not Detected (NotDetected); Respiratory Syncytial VirusPCR Not Detected (NotDetected); Rhinovirus/Enterovirus PCR DETECTED (NotDetected)
[2024-04-27] MEDS: MAGNESIUM SULFATE / D5W 1 GM/100 ML BAG IV ONE (17:41)
[2024-04-27] MEDS ORDERED: POLYETHYLENE (MIRALAX) 17 GM PACK PO PRN (18:34)
[2024-04-27] MEDS ORDERED: LORazepam 2 MG/1 ML VIAL IV PRN (18:34)
[2024-04-27] MEDS ORDERED: ACETAMINOPHEN 325 MG TAB PO PRN (18:34)
[2024-04-27] MEDS ORDERED: ONDANSETRON INJ 2 MG/ML 2 ML VIAL IV PRN (18:34)
[2024-04-27] MEDS ORDERED: BENZONATATE 100 MG CAPSULE PO PRN (18:34)
[2024-04-27] MEDS ORDERED: DICLOFENAC SOD 1% GEL 100 GM TUBE EXT PRN (19:15)
[2024-04-27] MEDS: AZITHROMYCIN 500 MG in SODIUM CHLORIDE 0.9% 250 ML IV SCH (19:44)
[2024-04-27] MEDS: tiZANidine HCL 4 MG TABLET PO SCH (20:05)
[2024-04-27] MEDS: CLOPIDOGREL BISULFATE 75 MG TAB PO ONE (20:14)
[2024-04-27] MEDS: SODIUM CHLORIDE 0.65% NA SOLN 45 ML (OCEAN) ONE (20:14)
[2024-04-27] MEDS: guaiFENesin 600 MG TABCR PO SCH (20:14)
[2024-04-27] MEDS: CARBIDOPA/LEVODOPA 25/100MG TAB PO SCH (20:14)
[2024-04-27] MEDS: cefTRIAXone SODIUM 2,000 MG in DEXTROSE 5% 50 ML IV SCH (20:19)
[2024-04-27 20:36] LABS: Appearance Urine Clear (Clear); Bacteria Urine Automated None Seen (None Seen); Bilirubin Urine Negative (Negative); Blood Urine Negative (Negative); Cast Urine Automated 0-2 /lpf (0-2); Color Urine Yellow; Epithelial Cell Urine Auto 0-2 /hpf (0-2); Glucose Urine UA Negative (Negative); Ketones Urine Negative (Negative); Leukocyte Esterase Urine Negative (Negative); Nitrite Urine Negative (Negative); Protein Urine 1+ (Negative); RBC Urine Automated 0-2 /hpf (0-2); Specific Gravity Urine 1.011 (1.000-1.030); Urobilinogen Urine Negative (Negative); WBC Urine Automated 0-5 /hpf (0-5); pH Urine 5.5 (4.5-7.5)
[2024-04-27] MEDS: HEPARIN SOD 5,000 UNIT/0.5 ML VIAL SQ SCH (21:50)
[2024-04-28 03:26] VITALS: O2SAT 93
[2024-04-28 03:38] LABS: Calcium 8.5 mg/dl (8.6-10.3); Magnesium 1.7 mg/dl (1.7-2.4)
[2024-04-28 03:44] LABS: BUN Creatinine Ratio 15.1 (10-20); Creatinine Clr Calc Pharmacy 38.7 ml/min
[2024-04-28 03:51] LABS: Hematocrit (blood only) 37.2 % (42.0-52.0); Mean Corpuscular Hemoglobin 33.1 pg (25.0-34.0); Mean Corpuscular Hgb Conc 34.9 g/dL (32.0-36.0); Mean Corpuscular Volume 94.7 fL (80.0-100.0); Mean Platelet Volume 9.8 fL (9.4-12.4); Platelet Count 161 K/uL (130-400); RDW Coefficient of Variation 13.5 % (11.5-14.5); RDW Standard Deviation 47.4 fL (36.4-46.3); Red Blood Count 3.93 M/uL (4.70-6.10); White Blood Count 13.81 K/ul (4.8-10.8)
[2024-04-28] MEDS: LEVOTHYROXINE SODIUM 75 MCG TABLET PO SCH (06:37)
[2024-04-28 07:24] VITALS: BP 125/71; RESP 18; TEMP 99.1
[2024-04-28 07:27] VITALS: PULSE 59
[2024-04-28] MEDS: FOLIC ACID 1 MG TAB PO SCH (08:15)
[2024-04-28] MEDS: CETIRIZINE HCL 10 MG TABLET PO SCH (08:15)
[2024-04-28] MEDS: MULTIVITAMIN TAB PO SCH (08:15)
[2024-04-28] MEDS: CLOPIDOGREL BISULFATE 75 MG TAB PO SCH (08:16)
[2024-04-28] MEDS: CHOLECALCIFEROL 25 MCG (1000 UNITS) TAB PO SCH (08:16)
[2024-04-28] MEDS: lisinopril 20 MG TAB PO SCH (08:16)
[2024-04-28] MEDS: ATORVASTATIN 40 MG TAB PO SCH (08:16)
[2024-04-28] MEDS: THIAMINE HCL 100 MG TAB PO SCH (08:16)
[2024-04-28] MEDS: FERROUS SULFATE 325 MG TAB PO SCH (08:16)
[2024-04-28] MEDS: allopurinoL 300 MG TAB PO SCH (08:17)
--- NOTE | 2024-04-28 09:16 | Electrocardiogram Report ---
Test Reason : Blood Pressure : */* mmHG Vent. Rate : 105 BPM Atrial Rate : 105 BPM P-R Int : 194 ms QRS Dur : 130 ms QT Int : 352 ms P-R-T Axes : 44 -26 33 degrees QTcB Int : 465 ms Sinus tachycardia with Premature atrial complexes with Premature ventricular complexes Right bundle branch block Abnormal ECG When compared with ECG of 15-Jul-2020 14:25, Vent. rate has increased by 35 bpm QRS axis Shifted left Confirmed by Oneyda Damon (Abraham) on 04/28/2024 9:16:24 AM Referred By: REFERRED SELF Confirmed By: Oneyda Damon
--- NOTE | 2024-04-28 12:06 | Discharge Summary ---
Discharge Summary Date of Service April 28, 2024 Principal Dx & Hospital Course #1 = Principal Diagnosis (1) Acute hypoxic respiratory failure: (2) Severe sepsis: (3) Viral pneumonia: (4) Secondary bacterial pneumonia: (5) Demand ischemia: (6) Hypomagnesemia: (7) Parkinson's disease: (8) Alcohol use disorder: (9) Hypothyroidism: (10) Chronic kidney disease, stage III (moderate): (11) Hypertension: (12) History of CVA with residual deficit: (13) TIAGO on CPAP: Plan Patient 74-year-old gentleman presented to the emergency room from urgent care where he was noted to be hypoxic. In the emergency room had an O2 sat at room air on 88%. Improved with some low-flow oxygen. Patient tested positive for rhinovirus and imaging was consistent with a right lower lobe pneumonia. Patient did have some elevated troponin and procalcitonin was referred for further evaluation. Patient was cared for in the hospital. Given empiric antibiotics to cover possible secondary bacterial pneumonia in the setting of most likely a viral pneumonia. Patient rapidly improved with this intervention along with antitussives and mucolytics. He was titrated off oxygen overnight. On the morning of discharge he was feeling significantly improved. He was up and ambulated and was able to maintain an O2 sat of 91% or greater. His shortness of breath significantly improved. He had no chest pain and no dyspnea with exertion. The patient was feeling confident he could continue to recover at home. He be transition to oral antibiotics to treat a suspected secondary bacterial pneumonia. Continued on antitussives and mucolytics. He will continue his usual outpatient medications. No longer requiring oxygen and his sepsis is resolved. His troponins were trended. They did elevate very consistent with demand ischemia associated with his hypoxia and pneumonia. His renal function is essentially at baseline his renal dysfunction would prevent rapid clearance of the troponin and explains the increase in the troponin. Proc alcitonin also could be elevated in the setting of renal disease. He examined much improved and could continue his care and recovery at home and follow-up with his PCP. Notes For Next Care Provider May need to consider outpatient cardiac ischemic eval once he has recovered from his acute pneumonia Medication Changes From Visit Ceftin and Zithromax for pneumonia Mucinex and Tessalon for his cough Admission HPI Per Admitting Provider This is a 74yo M with PMH of Parkinson's disease, CVA with left spastic hemiparesis, HTN, CKD III, mood disorder, BPH, TIAGO, hypothyroidism, h/o alcohol abuse on Vivitrol and other medical problems listed below who was sent over from Urgent Care for SOB and fever. Patient with recent exposure to sick contacts over the holidays and has since developed cough, SOB and fevers over past 2-3 days. 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 [place] fatigued by early evening and went to bed early. Patient slept in late this morning and by the time returned home from running errands, felt he looked tang and had shaking chills and fever of 101.7 F. Took him to [facility] urgent care, where he was found to be tachycardic and febrile and too weak to stand, requiring wheelchair. Was nauseated at this time and vomited x 1. Was directed to ED via ambulance for further evaluation. Patient feeling significantly improved with supplemental oxygen and IV fluids. Has occasional productive cough but denies any shortness of breath at this time. Recently started on Vivitrol monthly injections for history of alcohol abuse. Still drinking 3-6 drinks daily, tending towards 6+ over the holidays. Denies history of withdrawal symptoms. Uses CPAP to sleep at night. No falls, headache, chest pain, palpitations, wheezing, abdominal pain, dysuria, diarrhea or constipation. Did not take any home meds today. Admission Exam Per Admitting Provider See H&P Discharge Exam Constitutional: Alert, nontoxic HEENT: Mucous membranes moist. Lungs: Decreased breath sounds right lower lobe, no wheezes, no rales CV: S1-S2, regular Abdomen: Soft, nontender, nondistended Extremities: No significant edema Neuro: No focal deficits Psych: Cooperative, normal mood Updated Medication List Medication Instructions Recorded Confirmed Type levothyroxine 75 mcg tablet 75 mcg PO QAM #30 tabs 01/20/19 04/27/24 History diclofenac sodium 3 % topical gel 1 applic topical DAILY PRN Pain 11/06/19 04/27/24 History triamcinolone acetonide 0.5 % 1 applic topical DAILY PRN 11/06/19 04/27/24 History topical cream dermatitis Auto Titrating CPAP #1 ea 12/03/19 02/20/24 Rx clopidogrel 75 mg tablet (Plavix) 75 mg PO DAILY 12/03/19 04/27/24 History pseudoephedrine HCl 30 mg tablet 30 mg PO QAM PRN nasal congestion 01/26/20 04/27/24 History allopurinol 300 mg tablet 300 mg PO DAILY gout #90 tabs 09/20/20 04/27/24 History cholecalciferol (vitamin D3) 50 50 mcg PO DAILY #30 caps 09/20/20 04/27/24 Rx mcg (2,000 unit) capsule carbidopa 25 mg-levodopa 100 mg 2 tab PO TID 12/19/21 04/27/24 History tablet atorvastatin 80 mg tablet 80 mg PO DAILY #90 tabs 08/14/22 04/27/24 Rx lisinopril 20 mg tablet 20 mg PO DAILY #90 tabs 09/26/22 04/27/24 Rx tadalafil 5 mg tablet 5 mg PO DAILY #90 tabs 11/21/23 04/27/24 Rx cholecalciferol (vitamin D3) 25 25 mcg PO DAILY 04/27/24 04/27/24 History mcg (1,000 unit) tablet desvenlafaxine succinate 25 mg 25 mg PO QAM 04/27/24 04/27/24 History tablet,extended release 24 hr diclofenac sodium 1 % topical gel 2 g topical QID 04/27/24 04/27/24 History (Voltaren Arthritis Pain) ferrous sulfate 324 mg (65 mg 324 mg PO DAILY 04/27/24 04/27/24 History iron) tablet,delayed release levocetirizine 5 mg tablet 5 mg PO DAILY 04/27/24 04/27/24 History naltrexone microspheres 380 mg 380 mg IM DIRECTED 04/27/24 04/27/24 History intramuscular suspension,extended release (Vivitrol) sodium hyaluronate (viscosup) 10 10 mg intra-articular DIRECTED 04/27/24 04/27/24 History mg/mL(mw 2.4-3.6 million)intra-articular syringe (Euflexxa) tizanidine 2 mg tablet 4 mg PO HS 04/27/24 04/27/24 History azithromycin 500 mg tablet 500 mg PO DAILY 3 days #3 tabs 04/28/24 Rx (Zithromax) benzonatate 100 mg capsule 100 mg PO TID PRN cough #30 caps 04/28/24 Rx cefuroxime axetil 500 mg tablet 500 mg PO DAILY 5 days #5 tabs 04/28/24 Rx guaifenesin 600 mg tablet, 600 mg PO Q12 #30 tabs 04/28/24 Rx extended release 12 hr (Mucinex) Hospital Stay Data Consultations 04/27/24 15:57 ED Decision to Admit Stat Diagnostic Imagining Performed Reviewed imaging, laboratory and diagnostic studies. Pertinent findings as below. WBCs 13.8 Hemoglobin 13.0 Magnesium 1.7 Troponins reviewed Respiratory viral panel positive for rhinovirus Blood cultures pending Pending Results Patient Have Any Pending Studies at Discharge: Yes Discharge Instructions Given to Patient (Per Discharging Provider) Often times with viral pneumonia the cough can persist for several weeks even after you are over the infectious time. Total Time Total Time Spent Total Time Spent (In Minutes): 36
[2024-04-28] MEDS ORDERED: cefTRIAXone SODIUM 2,000 MG/50 ML BAG IV SCH (20:00)
== END 2024-04-28 13:55 | disposition home or self-care (01) | DRG 871 ==
LOC: ED 15:02 → SUATTDRO 16:29 → 4W 16:29
DX: E78.5 Hyperlipidemia, unspecified; J12.89 Other viral pneumonia; I24.89 Other forms of acute ischemic heart disease; R65.20 Severe sepsis without septic shock; J96.01 Acute respiratory failure with hypoxia; I12.9 Hypertensive chronic kidney disease with stage 1 through stage 4 chronic kidney disease, or unspecified chronic kidney disease; Z79.899 Other long term (current) drug therapy; A41.89 Other specified sepsis; Z79.02 Long term (current) use of antithrombotics/antiplatelets; Z79.890 Hormone replacement therapy; F10.10 Alcohol abuse, uncomplicated; N18.30 Chronic kidney disease, stage 3 unspecified; J15.9 Unspecified bacterial pneumonia; I69.354 Hemiplegia and hemiparesis following cerebral infarction affecting left non-dominant side; G47.33 Obstructive sleep apnea (adult) (pediatric); G20.C Parkinsonism, unspecified; E03.9 Hypothyroidism, unspecified; N40.0 Benign prostatic hyperplasia without lower urinary tract symptoms; E83.42 Hypomagnesemia